=== PATIENT | female | born 1945 | race Caucasian/White ===

== ENCOUNTER 2024-07-31 14:35 | Outpatient (OUT) | payer SELFPAY | END 2024-07-31 14:36 | disposition home or self-care (01) | LOC: PST 14:35 | PROVIDERS: Visit Provider Ophthalmology | DX: Z01.818 Encounter for other preprocedural examination (principal); H25.811 Combined forms of age-related cataract, right eye ==

== ENCOUNTER 2024-08-02 07:50 | Day surgery (SDC) | payer MEDICARE, SELFPAY ==
--- NOTE | 2024-08-02 | OP_ITS ---
OPERATION DATE: 08/02/2024 SURGEON: Garrett Crane D.O. PREOPERATIVE DIAGNOSIS: Nuclear sclerotic cataract right eye. POSTOPERATIVE DIAGNOSIS: Nuclear sclerotic cataract right eye. PROCEDURE NAME: Cataract extraction with intraocular lens placement of the right eye. ANESTHESIA: Topical ESTIMATED BLOOD LOSS: Zero. COMPLICATIONS: None. PROCEDURE: The patient was brought to the Operating Room in supine position. After proper identification, the right eye was prepped and draped in a sterile ophthalmic fashion. A paracentesis created at the 11 o'clock position. Approximately 1 cc of unpreserved Xylocaine was injected into the anterior chamber followed by Amvisc Plus. Using a 2.6 mm Keratome blade, a clear corneal incision was created at the 9 o'clock limbus. A cystotome was then used to begin a curvilinear capsulorrhexis that was continued for 360 degrees with the Utrata forceps. BSS on a 26 gauge cannula was injected beneath the anterior capsule to hydrodissect as well as hydrodelineate the lens. After ensuring mobility, phacoemulsification was performed in a [id number]-type fashion. After all nuclear material had been removed from the eye, IA was introduced and all residual cortical material was cleaned up. Additional Amvisc Plus was injected into the posterior bag and a lens model MX60, 18.0 diopters was injected and dialed into position. After ensuring centration, IA was reintroduced into the anterior chamber and all residual Amvisc Plus was removed from the eye. BSS on a 30 gauge cannula was injected into the stroma of both the clear corneal incision as well as paracentesis to hydrate the wounds. Additional BSS was injected into the anterior chamber to pressurize the eye at approximately 20 to 22 mmHg by finger tension. 0.1 cc of antibiotic was injected into the anterior chamber and Weck-Silvia sponges were used to check the wounds to be watertight. One drop of apraclonidine and one drop of prednisolone acetate placed into the eye and a shield was placed over top. The patient was sent to the postoperative area in satisfactory condition to follow up the following day for postoperative care. EDWINA
--- NOTE | 2024-08-02 | HP_ITS ---
PREOPERATIVE HISTORY AND PHYSICAL ? Date:? 07/31/2024 ? HISTORY:? The patient is a 78-year-old white female with complaints of declining vision out of her right eye.? She believes that this has been rather rapid over the last 12-18 months.? This has been affecting both her distance as well as her near.? Tasks such as reading the newspaper or working on the computer have become more challenging.? Most significantly, she has noted her night time driving has become difficult with headlights creating glare and halos.? ? PAST OCULAR HISTORY:? 1.? 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 2.? Dry eye. PAST MEDICAL HISTORY: Hypothyroidism, hypertension, hiatal hernia, hepatic steatosis, breast cancer, appendicitis status post appendectomy. ? SOCIAL HISTORY:? Denies tobacco, alcohol or recreational drug abuse. ? SYSTEMIC MEDICATIONS:? Include omeprazole, losartan, hydrochlorothiazide, amlodipine, levothyroxine and simvastatin. ? ALLERGIES TO MEDICATIONS:? Codeine and penicillin. ? REVIEW OF SYSTEMS:? No pertinent positives. ? PHYSICAL EXAM: ? GENERAL:? In general, she is awake, alert and oriented x3, well developed, well nourished, in no acute distress.? ? HEART:? Regular rate and rhythm. ? LUNGS:? Clear bilaterally. ? ABDOMEN:? Soft, non-tender, non-distended. ? EXTREMITIES:? No pitting edema. ? OPHTHALMIC EXAM:? Revealed a visual acuity of 20/70 in the right and 20/60 in the left.? Pupils motility, muscle balance and confrontational visual borges within normal limits bilaterally.? Pressures are measured at 16 bilaterally.?? Slit lamp exam revealed blepharitis with a severe decrease in tear film bilaterally.? Conjunctiva, cornea, anterior chamber and iris were within normal limits bilaterally.? Lens status demonstrated 2+ nuclear sclerosis with 3+ posterior subcapsular cataracts bilaterally.? ? FUNDUS EXAM:? Revealed good view with good dilation bilaterally.? Vessels, periphery and vitreous were within normal limits bilaterally.? The macula demonstrated an epiretinal membrane with pigment clumping in the right eye, and pigment clumping in the left eye with subretinal fluid.? ? ASSESSMENT AND PLAN:? Visually significant cataract, right eye.? After the risks, benefits, and alternatives as well as expectations were delivered to the patient, she elected to go forward with cataract removal.? She understands those risks to include but not limited to infection, bleeding, loss of vision or loss of the eye itself.? Secondly, she understands that postoperatively she is likely to require spectacle correction for her best visual acuity.? Finally, a complete ophthalmic exam was performed and she does carry the diagnosis of macular degeneration and this will affect her vision, perhaps shelter; however, it is felt that the cataract is the predominant source of her visual decline at this time.? After understanding all risks as well as expectations, she elected to go forward with the procedure as listed above and will be doing so in the near future. EDWINA
--- OUTSIDE RECORDS SUMMARY | 2024-08-02 07:55 | XMS_ITS | CCD ---
Author Organization [facility] Care Team Providers Care Wood Last Maker Name Role Phone GRACY TREVIZO Unavailable Unavailable Ivanauskas, Saulius Unavailable Unavailable Ivanauskas, Saulius Unavailable Unavailable Maria Elena Watson Unavailable UnavailEbonie Bowen Primary Care Physician [phone] NON STAFF Primary Care Provider UnavailGALEN Vivas-RAMIRO Walker Emergency Provider Silvana Sharma Attending Unavailable Silvana Sharma Admitting Unavailable NON STAFF Primary Care Unavailable Esteban Healy Attending Unavailable Ebonie Cash Attending Unavailable Ebonie Cash Attending Unavailable Salinas Villalobos Attending Unavailable ROMY HENRY Attending Unavailable SARA SAL Attending Unavailable SARA SAL Attending Unavailable SARA SAL Attending Unavailable SARA SAL Attending Unavailable SARA SAL Attending Unavailable Allergies Allergy Classification Reported Allergen(s) Allergy Type Date of Onset Reaction(s) Facility (2 sources) Penicillins; Translations: [penicillins] Propensity to adverse reactions to drug (disorder) 4 [facility] Rep[facility] (10 sources) Codeine; Translations: [codeine] Drug Allergy 7 rash [facility] (10 sources) Penicillin; Translations: [penicillin] Drug Allergy [facility] (5 sources) Nalbuphine; Translations: [nalbuphine] Drug Allergy Intolerance, function (observable entity) [facility] Medications Current Medications Medication Drug Class(es) Dates Sig (Normalized) Sig (Original) acetaminophen 325 mg / oxyCODONE hydrochloride 5 mg oral tablet (2 sources) Opioid Agonist Start: 03-06-2023 Percocet 5 mg-325 mg oral tablet 1 tab(s), Oral, q6hr as needed for pain, 12 tab(s), Refill(s) 0, [facility], 164, cm, 03/06/23 14:09:00 EDT, Height/Length Dosing, 76.5, kg, 03/06/23 14:09:00 EDT, Weight Dosing Start Date: 03/06/23 Status: Ordered amLODIPine 5 mg oral tablet (10 sources) Dihydropyridine Calcium Channel Judson Start: 01-14-2023 take 5 mg by mouth once daily Amlodipine Active 5 MG PO Daily March 08, 2024 12:00am Start: 12-21-2021 take 1 tablet by sophia th once daily amLODIPine 5 mg Tab 5 mg = 1 tab(s), Oral, Daily, # 90 tab(s), Refills(s) 3, Pharmacy: [facility], 165, cm, 12/21/21 15:49:00 EST, Height/Length Dosing, 77.7, kg, 12/21/21 15:49:00 EST, Weight Dosing Start Date: 12/21/21 Status: Ordered aspirin 81 mg delayed release oral tablet (5 sources) Platelet Aggregation Inhibitor, Nonsteroidal Anti-inflammatory Drug Start: 12-02-2016 take 1 tablet by mouth once daily aspirin 81 mg Oral EC Tab 81 mg = 1 tab(s), Oral, Daily, # 30 tab(s), Refills(s) 0, Pharmacy: [facility] Start Date: 12/02/16 Status: Ordered benzocaine 6 mg / menthol 10 mg oral lozenge (1 source) Standardized Chemical Allergen Start: 07-19-2022 Chloraseptic 6 mg-10 mg Lozenge 1 lozenge(s), Oral, q2hr for sore throat, 18 EA, Refill(s) 0, [facility], 165, cm, 07/19/22 13:46:00 EDT, Height/Length Dosing, 74.1, kg, 07/19/22 13:46:00 EDT, Weight Dosing Start Date: 07/19/22 Status: Ordered benzonatate 100 mg oral capsule (1 source) Non-narcotic Antitussive Start: 07-19-2022 End: 07-22-2022 take 1 capsule by mouth three times daily as needed for cough benzonatate 100 mg Cap 100 mg = 1 cap(s), Oral, TID, PRN Cough, X 3 day(s), # 9 cap(s), Refills(s) 0, Pharmacy: [facility], 165, cm, 07/19/22 13:46:00 EDT, Height/Length Dosing, 74.1, kg, 07/19/22 13:46:00 EDT, Weight Dosing Start Date: 07/19/22 Stop Date: 07/22/22 Status: Ordered cephalexin 500 mg oral capsule (2 sources) Cephalosporin Antibacterial Start: 03-01-2024 End: 03-06-2024 take 1 capsule by mouth every six hours Keflex 500 mg Cap 500 mg = 1 cap(s), Oral, q6hr, X 5 day(s), # 20 cap(s), Refills(s) 0, Pharmacy: [facility], 165.1, cm, 03/01/24 7:56:00 EDT, Height/Length Dosing, 77.1, kg, 03/01/24 7:56:00 EDT, Weight Dosing Start Date: 03/01/24 Stop Date: 03/06/24 Status: Ordered Chloraseptic 6 mg-10 mg Lozenge (4 sources) Start: 07-19-2022 Chloraseptic 6 mg-10 mg Lozenge 1 lozenge(s), Oral, q2hr for sore throat, 18 EA, Refill(s) 0, [facility], 165, cm, 07/19/22 13:46:00 EDT, Height/Length Dosing, 74.1, kg, 07/19/22 13:46:00 EDT, Weight Dosing Start Date: 07/19/22 Status: Ordered cyclobenzaprine hydrochloride 10 mg oral tablet (3 sources) Muscle Relaxant Start: 03-23-2023 take 1 tablet by mouth three times daily as needed for muscle spasms cyclobenzaprine 10 mg Tab 10 mg = 1 tab(s), Oral, TID, PRN for spasm, # 30 tab(s), Refills(s) 0, Pharmacy: [facility], 164, cm, 03/23/23 10:01:00 EDT, Height/Length Dosing, 75.9, kg, 03/23/23 10:01:00 EDT, Weight Dosing Start Date: 03/23/23 Status: Ordered 12 hr dextromethorphan polistirex 6 mg/ml extended release suspension (5 sources) Uncompetitive E-smulaw-W-aspartate Receptor Antagonist, Sigma-1 Agonist Start: 07-19-2022 take 30 mg by mouth every twelve hours as needed for cough Delsym 30 mg/5 mL oral suspension, extended release 30 mg = 5 mL, Oral, q12hr, PRN for cough, # 50 mL, Refills(s) 0, Pharmacy: [facility], 165, cm, 07/19/22 13:46:00 EDT, Height/Length Dosing, 74.1, kg, 07/19/22 13:46:00 EDT, Weight Dosing Start Date: 07/19/22 Status: Ordered Diclofenac (5 sources) Nonsteroidal Anti-inflammatory Drug Start: 07-19-2022 diclofenac Top 1% gel 1 vikki, Topical, QID for pain, 100 gram, Refill(s) 0, [facility], 165, cm, 07/19/22 13:46:00 EDT, Height/Length Dosing, 74.1, kg, 07/19/22 13:46:00 EDT, Weight Dosing Start Date: 07/19/22 Status: Ordered Start: 07-19-2022 diclofenac Top 1% gel 1 vikki, Topical, QID for pain, 100 gram, Refill(s) 0, [facility], 165, cm, 07/19/22 13:46:00 EDT, Height/Length Dosing, 74.1, kg, 07/19/22 13:46:00 EDT, Weight Dosing Start Date: 07/19/22 Status: Ordered gabapentin 100 mg oral capsule (4 sources) Anti-epileptic Agent Start: 03-14-2023 take 1 capsule by mouth three times daily gabapentin 100 mg Cap 100 mg = 1 cap(s), Oral, TID, # 90 cap(s), Refills(s) 0, Pharmacy: [facility], 164, cm, 03/12/23 13:34:00 EDT, Height/Length Dosing, 76.5, kg, 03/12/23 13:34:00 EDT, Weight Dosing Start Date: 03/14/23 Status: Ordered guaiFENesin 400 mg oral tablet (6 sources) Start: 07-19-2022 take 1 tablet by mouth every four hours as needed for congestion guaifenesin 400 mg oral tablet 400 mg = 1 tab(s), Oral, q4hr, PRN for congestion, # 30 tab(s), Refills(s) 0, Pharmacy: [facility], 165, cm, 07/19/22 13:46:00 EDT, Height/Length Dosing, 74.1, kg, 07/19/22 13:46:00 EDT, Weight Dosing Start Date: 07/19/22 Status: Ordered hydroCHLOROthiazide 25 mg / losartan potassium 100 mg oral tablet (10 sources) Thiazide Diuretic, Angiotensin 2 Receptor Judson Start: 01-14-2023 take 1 tablet by mouth once daily Losartan-Hydroch lorothiazide Active 1 TAB PO Daily March 08, 2024 12:00am Start: 12-21-2021 hydrochlorothi azide-losartan 25 mg-100 mg Tab 1 tab(s), Oral, Daily, 90 tab(s), Refill(s) 3, [facility], 165, cm, 12/21/21 15:49:00 EST, Height/Length Dosing, 77.7, kg, 12/21/21 15:49:00 EST, Weight Dosing Start Date: 12/21/21 Status: Ordered levothyroxine sodium 0.05 mg oral tablet (10 sources) l-Thyroxine Start: 03-08-2024 take 50 ug by mouth once daily Levothyroxine Active 50 MCG PO Daily March 08, 2024 12:00am Start: 01-23-2024 take 1 tablet by sophia th once daily levothyroxine 50 mcg (0.05 mg) Tab 50 microgram = 1 tab(s), Oral, Daily, # 90 tab(s), Refills(s) 3, Pharmacy: [facility], 164, cm, 03/23/23 10:01:00 EDT, Height/Length Dosing, 75.9, kg, 03/23/23 10:01:00 EDT, Weight Dosing Start Date: 01/23/24 Status: Ordered Start: 01-14-2023 take 1 tablet by sophia once daily levothyroxine 50 mcg (0.05 mg) Tab 50 microgram = 1 tab(s), Oral, Daily, # 90 tab(s), Refills(s) 3, Pharmacy: [facility], 165, cm, 01/14/23 11:24:00 EDT, Height/Length Dosing, 80.1, kg, 01/14/23 11:24:00 EDT, Weight Dosing Start Date: 01/14/23 Status: Ordered Start: 12-21-2021 take 1 tablet by sophia once daily levothyroxine 50 mcg (0.05 mg) Tab 50 microgram = 1 tab(s), Oral, Daily, # 90 tab(s), Refills(s) 3, Pharmacy: [facility], 165, cm, 12/21/21 15:49:00 EST, Height/Length Dosing, 77.7, kg, 12/21/21 15:49:00 EST, Weight Dosing Start Date: 12/21/21 Status: Ordered naproxen 500 mg oral tablet (2 sources) Nonsteroidal Anti-inflammatory Drug Start: 03-06-2023 take 1 tablet by mouth twice daily Naprosyn 500 mg Tab 500 mg = 1 tab(s), Oral, BID, Do not take it with any other nonsteroidal anti-inflammatory medications gbrz-has-dvzakxi, # 15 tab(s), Refills(s) 0, Pharmacy: [facility], 164, cm, 03/06/23 14:09:00 EDT, Height/Length Dosing, 76.5, kg, 0... Start Date: 03/06/23 Status: Ordered omeprazole 40 mg delayed release oral capsule (10 sources) Proton Pump Inhibitor Start: 01-14-2023 take 40 mg by mouth once daily Omeprazole Active 40 MG PO Daily March 08, 2024 12:00am Start: 12-21-2021 take 1 capsule by [facility] once daily omeprazole 40 mg Cap-DR 40 mg = 1 cap(s), Oral, Daily, # 90 cap(s), Refills(s) 3, Pharmacy: [facility], 165, cm, 12/21/21 15:49:00 EST, Height/Length Dosing, 77.7, kg, 12/21/21 15:49:00 EST, Weight Dosing Start Date: 12/21/21 Status: Ordered ondansetron 4 mg disintegrating oral tablet (2 sources) Serotonin-3 Receptor Antagonist Start: 03-08-2024 take 4 mg by mouth every eight hours Ondansetron Active 4 MG PO Q8H March 08, 2024 12:00am Start: 03-03-2024 End: 03-06-2024 take 1 tablet by mouth every six hours ondansetron 4 mg Dis Tab 4 mg = 1 tab(s), Oral, q6hr, X 3 day(s), # 10 tab(s), Refills(s) 0, Pharmacy: [facility], 165.1, cm, 03/03/24 14:10:00 EDT, Height/Length Dosing, 79.8, kg, 03/03/24 14:10:00 EDT, Weight Dosing Start Date: 03/03/24 Stop Date: 03/06/24 Status: Ordered oxyCODONE hydrochloride 5 mg oral tablet (2 sources) Opioid Agonist Start: 03-08-2024 take 5 mg by mouth every six hours Oxycodone Active 5 MG PO Every 6 hours 12 3 March 08, 2024 Start: 03-03-2024 End: 03-06-2024 take 1 tablet by mouth every six hours oxyCODONE 5 mg Tab 5 mg = 1 tab(s), Oral, q6hr, X 3 day(s), # 10 tab(s), Refills(s) 0, Pharmacy: [facility], 165.1, cm, 03/03/24 14:10:00 EDT, Height/Length Dosing, 79.8, kg, 03/03/24 14:10:00 EDT, Weight Dosing Start Date: 03/03/24 Stop Date: 03/06/24 Status: Ordered simvastatin 40 mg oral tablet (10 sources) HMG-CoA Reductase Inhibitor Start: 01-14-2023 take 40 mg by mouth once daily Simvastatin Active 40 MG PO Daily March 08, 2024 12:00am Start: 12-21-2021 take 1 tablet by sophia th once daily at bedtime simvastatin 40 mg Tab 40 mg = 1 tab(s), Oral, Once a day (at bedtime), # 90 tab(s), Refills(s) 3, Pharmacy: [facility], 165, cm, 12/21/21 15:49:00 EST, Height/Length Dosing, 77.7, kg, 12/21/21 15:49:00 EST, Weight Dosing Start Date: 12/21/21 Status: Ordered Zofran ODT 4 mg Tab-Dis (6 sources) Start: 02-04-2023 take 1 tablet by mouth every six hours as needed for nausea Zofran ODT 4 mg Tab-Dis 4 mg = 1 tab(s), Oral, q6hr, PRN Nausea/Vomiting, # 12 tab(s), Refills(s) 0, Pharmacy: [facility], 164, cm, 02/04/23 5:46:00 EDT, Height/Length Dosing, 76.5, kg, 02/04/23 5:46:00 EDT, Weight Dosing Start Date: 02/04/23 Status: Ordered Problems Problem Classification Problem Date Documented Da te Episodic/Chronic Abdominal hernia (2 sources) Hiatal hernia; Translations: [Diaphragmatic hernia without obstruction or gangrene] Onset: 4 03-08-2024 Episodic Abdominal pain (6 sources) Right upper quadrant pain; Translations: [Right upper quadrant pain] Onset: 3 Episodic Cancer of breast (9 sources) Malignant tumor of breast 12-03-2019 Chronic Cancer of breast (9 sources) History of malignant neoplasm of breast 07-20-2021 Episodic Conditions associated with dizziness or vertigo (9 sources) Vertigo 12-29-2020 Episodic Coronary atherosclerosis and other heart disease (1 source) Coronary atherosclerosis and other heart disease Onset: 7 Diabetes mellitus with complications (5 sources) Complication due to diabetes mellitus; Translations: [Type 2 diabetes mellitus with other specified complication] Onset: 3 Chronic Diabetes mellitus without complication (18 sources) Diabetes mellitus; Translations: [Type 2 diabetes mellitus] 01-05-2021 Chronic Comment on above: Added per outpatient CDI policy. Diabetes mellitus without complication (9 sources) Impaired fasting glycemia 01-05-2021 Episodic Disorders of lipid metabolism (19 sources) Hypercholesterolemia; Translations: [Hyperlipidemia] Onset: 3 12-16-2014 Chronic Esophageal disorders (10 sources) Gastroesophageal reflux disease; Translations: [Gastroesophageal reflux disease without esophagitis] Onset: 3 12-03-2019 Chronic Essential hypertension (20 sources) Hypertensive disorder; Translations: [Essential hypertension] Onset: 3 12-16-2014 Chronic Essential hypertension (1 source) Essential hypertension Onset: 7 Fluid and electrolyte disorders (1 source) Hypokalemia; Translations: [Hypokalemia] Onset: 3 Episodic Gastrointestinal hemorrhage (1 source) Gastrointestinal hemorrhage; Translations: [Gastrointestinal hemorrhage, unspecified] Onset: 4 Episodic Genitourinary symptoms and ill-defined conditions (1 source) Blood in urine; Translations: [Hematuria, unspecified] Onset: 4 Episodic Headache, including migraine (1 source) Headache, including migraine Onset: 7 Malaise and fatigue (1 source) Malaise; Translations: [Other malaise] Onset: 3 Episodic Nonspecific chest pain (3 sources) Chest pain; Translations: [Other chest pain] Onset: 2 Episodic Osteoporosis (9 sources) Primary osteoporosis; Translations: [Age-related osteoporosis without current pathological fracture] Onset: 3 Chronic Other aftercare (1 source) Long-term current use of drug therapy; Translations: [Other oysterman (current) drug therapy] Onset: 3 Episodic Other connective tissue disease (1 source) Symptom: chest wall 07-19-2022 Episodic Other liver diseases (1 source) Steatosis of liver; Translations: [Fatty (change of) liver, not elsewhere classified] 03-08-2024 Chronic Other liver diseases (2 sources) Enzyme level - finding; Translations: [Abnormal levels of other serum enzymes] Onset: 3 Episodic Other lower respiratory disease (2 sources) Cough; Translations: [Cough, unspecified] Onset: 2 Episodic Other nervous system disorders (1 source) Walking disability; Translations: [Difficulty in walking, not elsewhere classified] Onset: 3 Chronic Other nutritional; endocrine; and metabolic disorders (4 sources) Overweight in adulthood with body mass index of 25 or more but less than 30; Translations: [Body mass index (BMI) 27.0-27.9, adult] Onset: 2 Episodic Other nutritional; endocrine; and metabolic disorders (7 sources) Body mass index 25-29 - overweight 01-05-2021 Episodic Other nutritional; endocrine; and metabolic disorders (11 sources) Overweight; Translations: [Overweight] Onset: 3 12-29-2020 Episodic Other screening for suspected conditions (not mental disorders or infectious disease) (10 sources) Mammography abnormal; Translations: [Encounter for screening mammogram for malignant neoplasm of breast] Onset: 3 07-20-2021 Episodic Other upper respiratory disease (1 source) Disorder of the nose; Translations: [Other specified disorders of nose and nasal sinuses] Onset: 2 Episodic Other upper respiratory disease (2 sources) Nasal congestion; Translations: [Nasal congestion] Onset: 2 Episodic Other upper respiratory infections (2 sources) Acute pharyngitis; Translations: [Acute pharyngitis, unspecified] Onset: 2 Episodic Peripheral and visceral atherosclerosis (2 sources) Atherosclerosis of aorta; Translations: [Atherosclerosis of aorta] Onset: 4 Chronic Comment on above: added per 03/06/2024 query response. Residual codes; unclassified (3 sources) Patient encounter status; Translations: [Other specified health status] Onset: 2 Episodic Residual codes; unclassified (10 sources) Insomnia; Translations: [Insomnia, unspecified] Onset: 3 12-29-2020 Episodic Spondylosis; intervertebral disc disorders; other back problems (12 sources) Low back pain; Translations: [Low back pain, unspecified] Onset: 3 Episodic Thyroid disorders (11 sources) Hypothyroidism; Translations: [Hypothyroidism, unspecified] Onset: 3 12-03-2019 Chronic Thyroid disorders (9 sources) Disorder of thyroid gland 12-16-2014 Episodic Unclassified (1 source) Cervicalgia / M54.2(ICD-10) Onset: 7 Unclassified (1 source) Dorsalgia, unspecified / M54.9(ICD-10) Onset: 7 Unclassified (1 source) Allergy status to penicillin / Z88.0(ICD-10) Onset: 7 Unclassified (1 source) Striking against other stationary object, initial encounter / W22.09XA(ICD-10) Onset: 7 Unclassified (1 source) Other fall from one level to another, initial encounter / W17.89XA(ICD-10) Onset: 7 Unclassified (1 source) Unspecified injury of head, initial encounter / S09.90XA(ICD-10) Onset: 7 Unclassified (9 sources) Influenza vaccination declined 12-29-2020 Unclassified (9 sources) Non-smoker 01-05-2021 Unclassified (9 sources) Patient encounter status 12-21-2021 Urinary tract infections (1 source) Urinary tract infectious disease; Translations: [Urinary tract infection, site not specified] Onset: 4 Episodic Results Test Name Value Interpretation Reference Range Facility Consultation Noteon 04-18-20 Consultation Note [id number] FF Normal [facility] Family Medicine Office/Clini c Noteon 03-13-2024 Family Medicine Office/Clinic Note Chief Complaint Follow up HPI Staff Pt here for chronic follow up. Concerns: Has been in hospital 2x has pain in side, Lt shoulder pain, nausea/vomiting, Diarrhea-bloody Refills: all HTN BP range:Not Checking Meds:Amlodipine 5mg, HCTZ-Losartan 25mg-100mg Compliant, no side effects Diet:No Exercise:No No chest pain, palpitations, sob, headache, peripheral edema, lightheadedness. No hypotensive episodes Patient is here for follow up on Thyroid Disease. Do you have any of the following symptoms? Change in energy level? no Weight change? no Heat/cold intolerance? no Hair/skin/nail changes? no Change in bowels? no Last TSH: No qualifying data available. Patient is here for follow up on hyperlipidemia: Do you have side effects from the medication? no Refill needed?: _ Yearly Lipid labs: Due Health Maintenance: Colonoscopy:12/18/14 Dexa:DUE Mammo:DUE Last Labs:03/12/23 History of Present Illness The patient is a 78-year-old female presenting with multiple symptoms, including intermittent left shoulder pain, nausea, vomiting, and bloody diarrhea. [facility], with the first visit on 03/01/2024 presenting with similar symptoms, predominantly with right-sided flank pain and hematuria. A UTI was diagnosed, and she was prescribed a 5-day course of Keflex. A CT scan of the abdomen and pelvis revealed no acute intra-abdominal process or significant changes from 03/12/2024. A CT scan of the abdomen and pelvis showed chronic pwhq-dn-zvglkuje T11 compression fracture and degenerative changes predominantly in the lower lumbar region, along with a small fat-containing inguinal hernia. She was discharged home with a Keflex regimen. She returned to the ED again on 03/03/2024 with persistent right-sided abdominal pain despite the Keflex treatment. Despite this, she reports no improvement in her symptoms. Her medical history includes an appendectomy. Mild elevation in her LFTs were observed in previous labs. She was advised to continue with omeprazole 40 mg and a referral to a GI specialist for additional testing. She reported feeling better after morphine and Zofran and was discharged in stable condition with a prescription for oxycodone and Zofran. Today, she is presenting with bloody diarrhea, nausea, vomiting, and left-sided pain. She has a medical history of diabetes. Her urine culture from 03/01/2024 was negative. The patient has been experiencing symptoms since last Tuesday, with no recent travel, new activities, or exposure to sick contacts. Her most severe pain is on her right side, which radiates into her back, which she attributes to severe vomiting. The vomiting commenced last , and she experienced loose, bright red diarrhea with blood 3 to 4 times a day last . Her food intake has been significantly reduced, and she is unable to drink water due to nausea and has been vomiting all morning for the past 2 days. She vomited approximately 5 times this morning. She was not prescribed Zofran and was only given pain medication. She was informed that a HIDA scan could not be performed. She continues to take omeprazole for acid reflux. Her abdominal pain intensifies upon palpation and movement, making it difficult for her to sit up. She can only consume a few bites of food before feeling as though her stomach is filling up. Her bowel movements are less frequent due to reduced food intake. She discontinued ibuprofen and NSAIDs. She is able to drive and does not require a wheelchair to transport her car. She noticed hematuria on , but has not had any since. The patient reports intermittent left shoulder pain, which she suspects may be due to a pulled muscle. She has been caring for her mother who in 09/2023 for a few months last year, which involved lifting. She is also preparing for a house sale and is unsure if she injured her shoulder. Laboratory Studies Last glucose on 03/03/2024 was 253. Last A1c was 6.9 on 12/22/2022. Urine culture on 03/01/[address] abdomen and pelvis showed no acute intra-abdominal process and no significant change from 03/12/2024. It also showed chronic gynv-fm-frughrpw T11 compression fracture and degenerative changes predominantly in the lower lumbar region and a small fat-containing inguinal hernia. Repeat CT abdomen was done on 03/03/2024 which showed no acute intra-abdominal findings or any significant changes from 2 days prior. Review of Systems PHQ Score Initial Depression Screen Score: 0 SCORE Negative except as above Physical Exam Vitals & Measurements HR: 87(Peripheral) BP: 130/82 SpO2: 97% HT: 65 in HT: 165.1 cm WT: 75.0 kg WT: 165 lb BMI: 27.51 Gen: No acute distress, patient wincing in pain during office visit grabbing her RUQ Cardio: RRR, no murmur/rubs/gallops Resp: CTAB, no wheezing/rales/rhonchi Abd: Soft, nondistended, active bowel sounds, no organomegaly. Tender RUQ and LUQ. No bruising or other skin ch (more content not included)... Normal [facility] Comment on above: Result Comment: Elec tronically Signed By: Ebonie Cash MD\.br\Date and Time Signed: 03/13/24 09:53 EDT Alanine aminotransferase [En zymatic activity/volume] in Serum or PlasmaOrdered By: Silvana Sharma on 03-08-2024 ALT [Catalytic activity/Vol] 71 U/L 7-52 [facility] Albumin [Mass/volume] in Ser um or Plasma by Bromocresol green (BCG) dye binding methoOrdered By: Silvana Bullimore on 03-08-2024 Albumin BCG dye [Mass/Vol] 4.7 g/dL 3.5-5.7 [facility] Alkaline phosphatase [Enzyma tic activity/volume] in Serum or PlasmaOrdered By: Silvana Bullimore on 03-08-2024 ALP [Catalytic activity/Vol] 160 U/L 34-104 [facility] Aspartate aminotransferase [ Enzymatic activity/volume] in Serum or PlasmaOrdered By: Silvana Bullimore on 03-08-2024 AST [Catalytic activity/Vol] 44 U/L 13-39 [facility] Basic Metabolic Panelon Anion gap [Moles/Vol] 13.0 mmol/L Normal 6.0-15.0 Th e [facility] Comment on above: Performed By: #### C BC, LIPASE, BMP, HEPATIC #### [facility] [address] Calcium [Mass/Vol] 9.9 mg/dL Normal 8.6-10.3 [facility] Comment on above: Performed By: #### C BC, LIPASE, BMP, HEPATIC #### [facility] [address] [place] [address] [place] Chloride [Moles/Vol] 100 mmol/L Normal 98-107 [facility] Comment on above: Performed By: #### C BC, LIPASE, BMP, HEPATIC #### [facility] [address] [place] [address] [place] CO2 [Moles/Vol] 29.6 mmol/L Normal 21.0-31.0 [facility] Comment on above: Performed By: #### C BC, LIPASE, BMP, HEPATIC #### [facility] [address] [place] [id number] [place] Creatinine [Mass/Vol] 1.05 mg/dL Normal 0.60-1.20 [facility] Comment on above: Performed By: #### C BC, LIPASE, BMP, HEPATIC #### [facility] [address] [id number] [place] Creatinine Clr Calc Pharmacy 45.43 Normal [facility] Comment on above: Performed By: #### C BC, LIPASE, BMP, HEPATIC #### [address] GFR/1.73 sq M.predicted MDRD (S/P/Bld) [Vol rate/Area] 54.724 mL/min/{1.73_m2} Normal [facility] Comment on above: Performed By: #### C BC, LIPASE, BMP, HEPATIC #### [address] Glucose [Mass/Vol] 154 mg/dL High 70-100 [facility] Comment on above: Result Comment: [facility] Glucose Reference Range is dependent on time and content of last meal. Glucose of more than 200 mg/dL in a nonstressed, ambulatory subject supports the diagnosis of Diabetes Mellitus. ADA recommended reference range Performed By: #### C BC, LIPASE, BMP, HEPATIC #### [address] Potassium [Moles/Vol] 3.6 mmol/L Normal 3.5-5.1 [facility] Comment on above: Performed By: #### C BC, LIPASE, BMP, HEPATIC #### [address] Sodium [Moles/Vol] 139 mmol/L Normal 136-145 [facility] Comment on above: Performed By: #### C BC, LIPASE, BMP, HEPATIC #### [address] Urea nitrogen [Mass/Vol] 18 mg/dL Normal 7-25 [facility] Comment on above: Performed By: #### C BC, LIPASE, BMP, HEPATIC #### [address] Basophils Auto (Bld) [#/Vol] Ordered By: Silvana Sharma on 03-08-2024 Basophils (Bld) [#/Vol] 0.1 10*3/uL 0.0-0.2 [facility] Basophils/100 WBC Auto (Bld) Ordered By: Silvana Sharma on 03-08-2024 Basophils/100 WBC (Bld) 1.0 % . [facility] Bilirubin Test strip Ql (U)O rdered By: Silvana Sharma on 03-08-2024 Bilirubin Ql (U) Negative Negative [facility] Bilirubin.direct [Mass/volum e] in Serum or PlasmaOrdered By: Silvana Sharma on 03-08-2024 Bilirubin.direct [Mass/Vol] 0.10 mg/dL 0.03-0.18 [facility] Bilirubin.total [Mass/volume ] in Serum or PlasmaOrdered By: Silvana Sharma on 03-08-2024 Bilirubin [Mass/Vol] 0.5 mg/dL 0.3-1.0 [facility] CT abdomen pelvis w conon CT abdomen pelvis w con [facility] [place] [address] CT Scan Report Signed Patient: Key Reaves MR#: [id number] : 1945 Acct:[id number] Age/Sex: 78 / F ADM Date: 03/08/24 Loc: ER Room: Type: [facility] ER Attending Dr: Copies to: JUDD Carr Ordering Provider: JUDD Carr Date of Service: 03/08/24 CT/CT abdomen pelvis w con: RUQ abd pain CT Abdomen and Pelvis withcontrast TECHNIQUE: Axial imaging with 2-D reconstruction.90 cc of Isovue-300. The CT exam was performed using one or more the following dose reduction techniques: Automated exposure control, adjustment of the MA and/or Kv according to patient size, or use of the iterative reconstruction technique. COMPARISON: None History: RIGHT upper quadrant pain LIMITATIONS: None LOWER THORAX large hiatal hernia LIVER: Hepatic steatosis GALLBLADDER: No gallbladder abnormality identified. BILE DUCTS: No dilatation SPLEEN: Unremarkable PANCREAS: Unremarkable ADRENAL GLANDS: Unremarkable KIDNEYS:Unremarkable AORTA: No abdominal aortic aneurysm identified. RETROPERITONEUM: No significant retroperitoneal abnormalities identified. MESENTERY:Unremarkable SMALL BOWEL: The small bowel loops are nondistended. APPENDIX: The appendix is normal. COLON: Unremarkable URINARY BLADDER: Urinary bladder is unremarkable. REPRODUCTIVE SYSTEM: Retroverted uterus. The width of the central hypodense complex is 7.4 mm. No adnexal mass. PNEUMOPERITONEUM: None PERITONEAL FLUID:None BONY STRUCTURES: Degenerative change. ABDOMINAL WALL: Unremarkable CT/CT abdomen pelvis w con IMPRESSION: No acute findings for RIGHT upper quadrant pain. Hepatic steatosis. Concern for thickened endometrium. Elective follow-up assessment with pelvic ultrasound. Large hiatal hernia. Impression dictated by: Candelario Perez M.D.03/08/2024 7:35 PM Dictation Location: [place] [address] Transcribed By: [facility] 03/08/241934 Dictated By: Candelario Perez DO 03/08/241929 Signed By: 03/08/241934 Normal [facility] Calcium [Mass/volume] in Ser um or PlasmaOrdered By: Silvana Sharma on 03-08-2024 Calcium [Mass/Vol] 9.9 mg/dL 8.6-10.3 [facility] Carbon dioxide, total [Moles /volume] in Serum or PlasmaOrdered By: Silvana Sharma on 03-08-2024 CO2 [Moles/Vol] 29.6 mmol/L 21.0-31.0 [facility] Chloride [Moles/volume] in S gopal or PlasmaOrdered By: Silvana Sharma on 03-08-2024 Chloride [Moles/Vol] 100 mmol/L 98-107 [facility] Color Auto (U)Ordered By: Graciela Sharma on 03-08-2024 Color (U) Yellow Yellow [facility] Complete Blood Count Auto Di ffon 03-08-2024 Basophils (Bld) [#/Vol] 0.1 10*3/uL Normal 0.0-0.2 [facility] Comment on above: Result Comment: PERF ORMED BY: [place] [address] PATHOLOGIST [employer] MELY LUQUE M.D. Performed By: #### C BC, LIPASE, BMP, HEPATIC #### [address] Basophils/100 WBC (Bld) 1.0 % Normal . T sai [facility] Comment on above: Performed By: #### C BC, LIPASE, BMP, HEPATIC #### [address] Eosinophils (Bld) [#/Vol] 0.1 10*3/uL Normal 0.0-0.45 [facility] Comment on above: Performed By: #### C BC, LIPASE, BMP, HEPATIC #### [address] Eosinophils/100 WBC (Bld) 0.6 % Normal . [facility] Comment on above: Performed By: #### C BC, LIPASE, BMP, HEPATIC #### [address] Erythrocyte distribution width (RBC) [Ratio] 13.2 % Normal 11.9-15.3 [facility] Comment on above: Performed By: #### C BC, LIPASE, BMP, HEPATIC #### [address] Hematocrit (Bld) [Volume fraction] 44.0 % Normal 34.0-46.4 [facility] Comment on above: Performed By: #### C BC, LIPASE, BMP, HEPATIC #### [address] Hemoglobin (Bld) [Mass/Vol] 15.2 g/dL Normal 11.8-15.4 [facility] Comment on above: Performed By: #### C BC, LIPASE, BMP, HEPATIC #### [address] Lymphocytes (Bld) [#/Vol] 2.1 10*3/uL Normal 1.00-4.8 [facility] Comment on above: Performed By: #### C BC, LIPASE, BMP, HEPATIC #### [address] Lymphocytes/100 WBC (Bld) 17.3 % Normal . [facility] Comment on above: Performed By: #### C BC, LIPASE, BMP, HEPATIC #### [address] MCH (RBC) [Entitic mass] 32.8 pg Normal 24.7-34.3 [facility] Comment on above: Performed By: #### C BC, LIPASE, BMP, HEPATIC #### [address] MCV (RBC) [Entitic vol] 95.1 fL Normal 80-100 [facility] Comment on above: Performed By: #### C BC, LIPASE, BMP, HEPATIC #### [address] Mean Corpuscular HGB Conc 34.5 g/dL Normal 32.0-35.0 [facility] Comment on above: Performed By: #### C BC, LIPASE, BMP, HEPATIC #### [address] Monocytes (Bld) [#/Vol] 0.7 10*3/uL Normal 0.0-0.8 [facility] Comment on above: Performed By: #### C BC, LIPASE, BMP, HEPATIC #### [address] Monocytes/100 WBC (Bld) 17.65 % Normal 0.00-20.00 [facility] Comment on above: Performed By: #### C BC, LIPASE, BMP, HEPATIC #### [address] Monocytes/100 WBC (Bld) 5.7 % Normal . T [facility] Comment on above: Performed By: #### C BC, LIPASE, BMP, HEPATIC #### [address] Neutrophils (Bld) [#/Vol] 9.0 10*3/uL High 1.8-7.7 [facility] Comment on above: Performed By: #### C BC, LIPASE, BMP, HEPATIC #### [address] Neutrophils/100 WBC (Bld) 75.4 % Normal . [facility] Comment on above: Performed By: #### C BC, LIPASE, BMP, HEPATIC #### [address] NRBC% 0.0 /100{WBC} Normal 0-0.5 [facility] Comment on above: Performed By: #### C BC, LIPASE, BMP, HEPATIC #### [address] Platelet mean volume (Bld) [Entitic vol] 8.8 fL Normal 6.3-10.7 [facility] Comment on above: Performed By: #### C BC, LIPASE, BMP, HEPATIC #### [address] Platelets (Bld) [#/Vol] 289 10*3/uL Normal 150-450 [facility] Comment on above: Performed By: #### C BC, LIPASE, BMP, HEPATIC #### [address] RBC (Bld) [#/Vol] 4.63 10*6/uL Normal 3.60-5.00 [facility] Comment on above: Performed By: #### C BC, LIPASE, BMP, HEPATIC #### [address] WBC (Bld) [#/Vol] 11.9 10*3/uL High 3.8-11.6 [facility] Comment on above: Performed By: #### C BC, LIPASE, BMP, HEPATIC #### [address] Creatinine [Mass/volume] in Serum or PlasmaOrdered By: Silvana Sharma on 03-08-2024 Creatinine [Mass/Vol] 1.05 mg/dL 0.60-1.20 [facility] ECG 12 lead ECGon 03-08-2024 ECG 12 lead ECG [facility] Main [place] [address] [place] [address] Electrocardiograph Report Signed Patient: Key Reaves MR#: [id number] : 1945 Acct:[id number] Age/Sex: 78 / F ADM Date: 03/08/24 Loc: ER Room: Type: [facility] ER Attending Dr: Ordering Provider: JUDD Carr Date of Service: 03/08/2407/24/1501 ECG/ECG 12 lead ECG: Abdominal Pain Copies to: Test Reason : Blood Pressure : 145/065 mmHG Vent. Rate : 086 BPM Atrial Rate : 086 BPM P-R Int : 138 ms QRS Dur : 084 ms QT Int : 366 ms P-R-T Axes : 064 000 085 degrees QTc Int : 437 ms Normal sinus rhythm Anterior infarct , age undetermined Abnormal ECG No previous ECGs available Confirmed by ALDAIR REYNOLDS [facility] ([id number] on 03/11/2024 2:53:11 PM Referred By: Electronically Signed By:MEGAN QUINTEROS MD [facility] Transcribed By: MUS Signed By Ken Quinteros MD 03/11/24 1453 Normal [facility] Eosinophils Auto (Bld) [#/Vo l]Ordered By: Silvana Sharma on 03-08-2024 Eosinophils (Bld) [#/Vol] 0.1 10*3/uL 0.0-0.45 [facility] Eosinophils/100 WBC Auto (Bl d)Ordered By: Silvana Sharma on 03-08-2024 Eosinophils/100 WBC (Bld) 0.6 % . [facility] Erythrocyte distribution wid th Auto (RBC) [Ratio]Ordered By: Silvana Sharma on 03-08-2024 Erythrocyte distribution width (RBC) [Ratio] 13.2 % 11.9-15.3 [facility] Globulin Calc (S) [Mass/Vol] Ordered By: Silvana Sharma on 03-08-2024 Globulin (S) [Mass/Vol] 3.7 g/dL [facility] Glucose [Mass/volume] in Ser um or PlasmaOrdered By: Silvana Sharma on 03-08-2024 Glucose [Mass/Vol] 154 mg/dL 70-100 [facility] Comment on above: ADA recommended refe rence rangeRandom Glucose Reference Range is dependent on time and content of last meal. Glucose of more than 200 mg/dL in a nonstressed, ambulatory subject supports the diagnosis of Diabetes Mellitus. Hematocrit Auto (Bld) [Volum e fraction]Ordered By: Silvana Sharma on 03-08-2024 Hematocrit (Bld) [Volume fraction] 44.0 % 34.0-46.4 [facility] Hemoglobin [Mass/volume] in BloodOrdered By: Silvana Dominguezimore on 03-08-2024 Hemoglobin (Bld) [Mass/Vol] 15.2 g/dL 11.8-15.4 [facility] Hepatic Panelon 03-08-2024 Albumin [Mass/Vol] 4.7 g/dL Normal 3.5-5.7 [facility] Comment on above: Performed By: #### C BC, LIPASE, BMP, HEPATIC #### [facility] [address] Albumin/Globulin [Mass ratio] 1.3 {ratio} Normal [facility] Comment on above: Performed By: #### C BC, LIPASE, BMP, HEPATIC #### [facility] [address] [place] [address] [place] ALP [Catalytic activity/Vol] 160 U/L High 34-104 [facility] Comment on above: Performed By: #### C BC, LIPASE, BMP, HEPATIC #### [facility] [address] [place] [address] [place] ALT [Catalytic activity/Vol] 71 U/L High 7-52 [facility] Comment on above: Performed By: #### C BC, LIPASE, BMP, HEPATIC #### [facility] [address] [place] [address] [place] AST [Catalytic activity/Vol] 44 U/L High 13-39 [facility] Comment on above: Performed By: #### C BC, LIPASE, BMP, HEPATIC #### [facility] [address] [id number] [place] Bilirubin [Mass/Vol] 0.5 mg/dL Normal 0.3-1.0 [facility] Comment on above: Performed By: #### C BC, LIPASE, BMP, HEPATIC #### [facility] [address] [place] [address] [place] Bilirubin,Indirect 0.4 mg/dL Normal [facility] Comment on above: Performed By: #### C BC, LIPASE, BMP, HEPATIC #### [address] Bilirubin.indirect [Mass/Vol] 0.10 mg/dL Normal 0.03-0.18 [facility] Comment on above: Performed By: #### C BC, LIPASE, BMP, HEPATIC #### [address] Globulin (S) [Mass/Vol] 3.7 g/dL Normal T [facility] Comment on above: Performed By: #### C BC, LIPASE, BMP, HEPATIC #### [address] Protein [Mass/Vol] 8.4 g/dL Normal 6.4-8.9 [facility] Comment on above: Performed By: #### C BC, LIPASE, BMP, HEPATIC #### [address] Ketones Auto test strip (U) [Mass/Vol]Ordered By: Silvana Sharma on 03-08-2024 Ketones (U) [Mass/Vol] Negative Negative [facility] Leukocytes [#/volume] correc von for nucleated erythrocytes in Blood by Automated counOrdered By: Silvana Sharma on 03-08-2024 WBC corrected for nucl RBC Auto (Bld) [#/Vol] 11.9 10*3/uL 3.8-11.6 [facility] Lipaseon 03-08-2024 Lipase [Catalytic activity/Vol] 9.0 U/L Low 11.0-82.0 [facility] Comment on above: Result Comment: PERF ORMED BY: [place] [address] PATHOLOGIST [employer] MELY LUQUE M.D. Performed By: #### C BC, LIPASE, BMP, HEPATIC #### [address] Lipase [Enzymatic activity/v olume] in Serum or PlasmaOrdered By: Silvana Sharma on 03-08-2024 Lipase [Catalytic activity/Vol] 9.0 U/L 11.0-82.0 [facility] Lymphocytes Auto (Bld) [#/Vo l]Ordered By: Silvana Bullimore on 03-08-2024 Lymphocytes (Bld) [#/Vol] 2.1 10*3/uL 1.00-4.8 [facility] Lymphocytes/100 WBC Auto (Bl d)Ordered By: Silvana Bullimore on 03-08-2024 Lymphocytes/100 WBC (Bld) 17.3 % . [facility] MCH Auto (RBC) [Entitic mass ]Ordered By: Silvana Bullimore on 03-08-2024 MCH (RBC) [Entitic mass] 32.8 pg 24.7-34.3 [facility] MCHC Auto (RBC) [Mass/Vol]Or dered By: Silvana Bullimore on 03-08-2024 MCHC (RBC) [Mass/Vol] 34.5 g/dL 32.0-35.0 [facility] MCV Auto (RBC) [Entitic vol] Ordered By: Silvana Bullimore on 03-08-2024 MCV (RBC) [Entitic vol] 95.1 fL 80-100 [facility] Monocyte distribution width [Entitic volume] in Blood by AutomatedOrdered By: Silvana Bullimore on 03-08-2024 Monocyte distribution width Auto (Bld) [Entitic vol] 17.65 % 0.00-20.00 [facility] Monocytes Auto (Bld) [#/Vol] Ordered By: Silvana Bullimore on 03-08-2024 Monocytes (Bld) [#/Vol] 0.7 10*3/uL 0.0-0.8 [facility] Monocytes/100 WBC Auto (Bld) Ordered By: Silvana Bullimore on 03-08-2024 Monocytes/100 WBC (Bld) 5.7 % . [facility] Neutrophils Auto (Bld) [#/Vo l]Ordered By: Silvana Bullimore on 03-08-2024 Neutrophils (Bld) [#/Vol] 9.0 10*3/uL 1.8-7.7 [facility] Neutrophils/100 WBC Auto (Bl d)Ordered By: Silvana Badilloore on 03-08-2024 Neutrophils/100 WBC (Bld) 75.4 % . [facility] Nitrite Test strip Ql (U)Ord ered By: Silvana Sharma on 03-08-2024 Nitrite Ql (U) Negative Negative [facility] No Panel InformationOrdered By: Silvana Sharma on 03-08-2024 Estimated GFR (CKD-EPI) 54.724 mL/Min [facility] Creatinine Clearance (Chem 45.43 [facility] Nucleated erythrocytes [Pres ence] in Blood by Automated countOrdered By: Silvana Sharma on 03-08-2024 Nucleated RBC Auto Ql (Bld) 0.0 /100{WBC} 0-0.5 [facility] Platelet mean volume Auto (B ld) [Entitic vol]Ordered By: Silvana Badilloore on 03-08-2024 Platelet mean volume (Bld) [Entitic vol] 8.8 fL 6.3-10.7 [facility] Platelets Auto (Bld) [#/Vol] Ordered By: Silvana Dominguezimore on 03-08-2024 Platelets (Bld) [#/Vol] 289 10*3/uL 150-450 [facility] Potassium [Moles/volume] in Serum or PlasmaOrdered By: Silvana Dominguezimore on 03-08-2024 Potassium [Moles/Vol] 3.6 mmol/L 3.5-5.1 [facility] Protein Auto test strip (U) [Mass/Vol]Ordered By: Silvana Sharma on 03-08-2024 Protein (U) [Mass/Vol] Negative Negative [facility] Protein [Mass/volume] in Ser um or PlasmaOrdered By: Silvana Dominguezimore on 03-08-2024 Protein [Mass/Vol] 8.4 g/dL 6.4-8.9 [facility] RBC Auto (Bld) [#/Vol]Ordere d By: Silvana Bullimore on 03-08-2024 RBC (Bld) [#/Vol] 4.63 10*6/uL 3.60-5.00 [facility] Serum or plasma albumin/glob ulin mass ratioOrdered By: Silvanaginna Badilloore on 03-08-2024 Albumin/Globulin [Mass ratio] 1.3 {ratio} [facility] Serum or plasma anion gap de terminationOrdered By: Silvanaginna Dominguezore on 03-08-2024 Anion gap [Moles/Vol] 13.0 mmol/L 6.0-15.0 [facility] Serum or plasma non-glucuron idated bilirubin measurement (mass/volume)Ordered By: B[facility] Albertor [facility] on 03-08-2024 Bilirubin.indirect [Mass/Vol] 0.4 mg/dL [facility] Sodium [Moles/volume] in Ser um or PlasmaOrdered By: Silvanaginna Dominguezore on 03-08-2024 Sodium [Moles/Vol] 139 mmol/L 136-145 [facility] Specific gravity Auto test s trip (U) [Rel density]Ordered By: [facility] on 03-08-2024 Specific gravity (U) [Rel density] 1.005 1.001-1.030 [facility] Troponin I High Sensitivityo n 03-08-2024 Troponin I High Sensitivity 5.2 pg/mL Normal 0.0-15.0 [facility] Comment on above: Result Comment: PERF ORMED BY: [place] [address] PATHOLOGIST [employer] MELY LUQUE M.D. Performed By: #### H S TROP #### [address] Troponin I.cardiac [Mass/vol ume] in Serum or Plasma by Detection limit <= 0.01 ng/Ordered By: Silvanaginna Dominguezr [facility] on 03-08-2024 Troponin I.cardiac DL <= 0.01 ng/mL [Mass/Vol] 5.2 pg/mL 0.0-15.0 [facility] US gall bladderon 03-08-2024 US gall bladder [facility] [place] [address] Ultrasound Report Signed Patient: Key Reaves MR#: [id number] : 1945 Acct:[id number] Age/Sex: 78 / F ADM Date: 03/08/24 Loc: ER Room: Type: [facility] ER Attending Dr: Ordering Provider: JUDD Carr Date of Service: 03/08/24 US/US gall bladder: ABDOMINAL PAIN Copies to: JUDD Carr Gallbladder ultrasound HISTORY: RIGHT upper quadrant pain since Tuesday. Nausea vomiting diarrhea COMPARISON: None Negative ultrasound Rincon's sign reported. COMMON BILE DUCT: Not visualized LIVER CONTOUR: Normal. LIVER PARENCHYMA: Hepatic steatosis HEPATIC LESION: None INTRAHEPATIC BILIARY DUCTAL DILATATION No ductal dilatation identified. GALLSTONES: No shadowing gallstones. GALLBLADDER SLUDGE: No gallbladder sludge. GALLBLADDER WALL: Normal thickness PERICHOLECYSTIC FLUID: None Pancreas: Nonvisualization PORTAL VEIN: Normal blood flow. Liver size: Normal No RIGHT hydronephrosis identified. US/US gall bladder IMPRESSION: Limited exam. Hepatic steatosis. Nonvisualization of common bile duct. Unremarkable gallbladder. Impression dictated by: Candelario Perez M.D.03/08/2024 6:08 PM Dictation Location: [place] [address] Tech: Julia Ovalle Transcribed By: [facility] 03/08/241807 Dictated By: Candelario Perez DO 03/08/241805 Signed By: 03/08/241807 Normal [facility] Urea nitrogen [Mass/volume] in Serum or PlasmaOrdered By: Silvana Sharma on 03-08-2024 Urea nitrogen [Mass/Vol] 18 mg/dL 7-25 [facility] Urinalysison 03-08-2024 Appearance (U) Clear Normal Clear [facility] Comment on above: Order Comment: Name Collection Type:: Clean-Voided Midstream Performed By: #### U A #### [facility] [address] [place] [address] [place] Bilirubin,Urine Negative Normal Negative [facility] Comment on above: Order Comment: Name Collection Type:: Clean-Voided Midstream Performed By: #### U A #### [facility] [address] [place] [id number] [place] Color (U) Yellow Normal Yellow [facility] Comment on above: Order Comment: Name Collection Type:: Clean-Voided Midstream Performed By: #### U A #### [address] Glucose Ql (U) Normal Normal Normal [facility] Comment on above: Order Comment: Name Collection Type:: Clean-Voided Midstream Performed By: #### U A #### [address] Ketones Ql (U) Negative Normal Negative [facility] Comment on above: Order Comment: Name Collection Type:: Clean-Voided Midstream Performed By: #### U A #### [address] Leukocyte esterase Test strip Ql (U) Negative Normal Negative [facility] Comment on above: Order Comment: Name Collection Type:: Clean-Voided Midstream Performed By: #### U A #### [place] [address] [place] Nitrite,Urine Negative Normal Negative [facility] Comment on above: Order Comment: Name Collection Type:: Clean-Voided Midstream Performed By: #### U A #### [place] [address] [place] Occult Blood,Urine Negative Normal Negative [facility] Comment on above: Order Comment: Name Collection Type:: Clean-Voided Midstream Result Comment: PERF ORMED BY: [place] [address] PATHOLOGIST [employer] MELY LUQUE M.D. Performed By: #### U A #### [place] [address] [place] pH (U) 6.5 [pH] Normal 5.0-9.0 [facility] Comment on above: Order Comment: Name Collection Type:: Clean-Voided Midstream Performed By: #### U A #### [place] [address] [place] Protein,Urine Negative Normal Negative [facility] Comment on above: Order Comment: Name Collection Type:: Clean-Voided Midstream Performed By: #### U A #### [facility] [address] Specificy [place],Urine 1.005 Normal 1.001-1.030 [facility] Comment on above: Order Comment: Name Collection Type:: Clean-Voided Midstream Performed By: #### U A #### [facility] [address] Urobilinogen,Urine Normal Normal Normal [facility] Comment on above: Order Comment: Name Collection Type:: Clean-Voided Midstream Performed By: #### U A #### [facility] [address] Urine clarity by refractomet ry automatedOrdered By: Silvana Sharma on 03-08-2024 Clarity Refractometry automated (U) Clear Clear [facility] Urine glucose measurement by automated test strip (mass/volume)Ordered By: Silvana Sharma on 03-08-2024 Glucose Auto test strip (U) [Mass/Vol] Normal mg/dL Normal [facility] Urine hemoglobin detection b y automated test stripOrdered By: Silvana Sharma on 03-08-2024 Hemoglobin Auto test strip Ql (U) Negative Negative [facility] Urine leukocyte esterase det ection by automated test stripOrdered By: Silvana Sharma on 03-08-2024 Leukocyte esterase Auto test strip Ql (U) Negative Negative [facility] Urobilinogen Auto test strip (U) [Mass/Vol]Ordered By: Silvana Sharma on 03-08-2024 Urobilinogen (U) [Mass/Vol] Normal mg/dL Normal [facility] WBC Auto (Bld) [#/Vol]Ordere d By: Silvana Sharma on 03-08-2024 WBC (Bld) [#/Vol] 11.9 10*3/uL 3.8-11.6 [facility] pH Auto test strip (U)Ordere d By: Silvana Sharma on 03-08-2024 pH (U) 6.5 [pH] 5.0-9.0 [facility] Pre-Visit Planningon 024 Pre-Visit Planning - From: Darby Dumont To: Ebonie Cash MD; Sent: 03/06/2024 14:50:51 EDT Subject: Pre-Visit Planning Due Date/Time: 03/06/2024 14:50:00 EDT Caller Name: KEY REAVES; Caller Number: H , M Ut Dr. Cash. During a pre-visit planning chart review, I noted the following documentation in the medical record: Current Problem List: Hypertension, Overweight, and Type 2 diabetes mellitus with hyperlipidemia. Current Medication List: amlodipine, hydrochlorothiazide-los leticia, and simvastatin. 03/12/2023 CT Abdomen/Pelvis w/o Contrast: Abdominal aorta is nonaneurysmal and demonstrates atherosclerotic calcification. Based on your medical judgment, can you please clarify which, if any, of the following conditions are present? I can update the Chronic Problem List with your response if you would like. -Abdominal aortic atherosclerosis -Other (please specify): In responding to this request, please exercise your independent professional judgement. The fact that a question is asked does not imply that any particular answer is desired or expected. If you have any questions, please feel free to contact me at extension [phone]. Thank you! Darby Dumont LPN From: Ebonie Cash MD To: Darby Dumont; Sent: 03/06/2024 21:24:23 EDT Subject: RE: Pre-Visit Planning Caller Name: KEY REAVES; Caller Number: Estephania , M please add the following to problem list -Abdominal aortic atherosclerosis Normal [address] [place] [address] BB Draw & Holdon 03-03-2024 BB D&H Sample drawn for Blo od Ba Normal [facility] Comment on above: Performed By: #### 1 [id number], 12447545, 91277805, 1636088, 9418767, 8671313, 3913182, 3782477 ####[facility] [address] [place] [address] BMPon 03-03-2024 Anion gap [Moles/Vol] 15 mmol/L Normal 6-16 [facility] Comment on above: Performed By: #### 1 4430846, 82821468, 47528772, 2056371, 6503858, 1012606, 8318103, 7319468 ####[facility] [address] [place] [address] Calcium [Mass/Vol] 9.4 mg/dL Normal 8.9-11.1 [facility] Comment on above: Performed By: #### 1 7380840, 04982577, 66857664, 7925620, 2836143, 2518115, 2603201, 3558041 ####[facility] [address] [place] [address] Chloride [Moles/Vol] 101 mmol/L Normal 101-111 [facility] Comment on above: Performed By: #### 1 3561247, 63834528, 93241025, 9490657, 8129487, 7658855, 4550373, 8363128 ####[facility] [address] [place] [address] CO2 [Moles/Vol] 25 mmol/L Normal 21-31 [facility] Comment on above: Performed By: #### 1 8001006, 37034036, 48818326, 7584965, 2536393, 3594668, 1440913, 7692283 ####[facility] [address] [place] [address] Creatinine [Mass/Vol] 1.0 mg/dL Normal 0.5-1.3 [facility] Comment on above: Performed By: #### 1 2208375, 54119272, 40254384, 7380963, 3086090, 3662951, 9371593, 0339980 ####[facility] [address] [place] [address] Glucose [Mass/Vol] 253 mg/dL High 55-199 [facility] Comment on above: Performed By: #### 1 1663657, 06907977, 88248321, 3938790, 8838374, 9102554, 0831244, 7721165 ####[facility] [address] [place] [address] Potassium [Moles/Vol] 3.6 mmol/L Normal 3.5-5.3 [facility] Comment on above: Performed By: #### 1 6724740, 89800149, 55297985, 8481810, 6732696, 8221025, 9099676, 9091575 ####[facility] [address] [place] [address] Sodium [Moles/Vol] 137 mmol/L Normal 135-145 [facility] Comment on above: Performed By: #### 1 3885096, 78150101, 82306161, 0261614, 0385619, 9186798, 9129228, 1495197 ####[facility] [address] [place] [address] Urea nitrogen [Mass/Vol] 19 mg/dL Normal 5-21 [facility] Comment on above: Performed By: #### 1 0192218, 19984191, 43326574, 9443166, 3712688, 6538269, 7537981, 5074412 ####[facility] [address] [place] [address] Urea nitrogen/Creatinine [Mass ratio] 19 No Units Normal 10-20 [facility] Comment on above: Performed By: #### 1 7668431, 54750437, 05688239, 9451728, 0016824, 8822122, 3334243, 0369122 ####[facility] [address] [place] [address] C Urineon 03-03-2024 Bacteria identified Cx Nom (U) Microbiology PROCEDURE: Urine Culture [R1] SOURCE: U CleanCatch BODY SITE: COLLECTED DATE/TIME: 03/01/2024 09:11 EDT RECEIVED DATE/TIME: 03/01/2024 11:30 EDT START DATE/TIME: 03/01/2024 11:30 EDT FREE TEXT SOURCE: Esteban Healy DO, DO, Kevin M. FINAL REPORTS Final Report [] Verified Date/Time: 03/03/2024 10:10 EDT 1,000 cfu/ml Mixed skin contaminants Performing Locations R1: This test was performed at: [facility], [address] [place] [address], [address] , [place], Normal [facility] Comment on above: Performed By: #### 4 [id number], [id number] ####[address] [address] CBC w/ Auto Diffon Basophils/100 WBC (Bld) 0.8 % Normal 0.0-2.0 [facility] Comment on above: Performed By: #### 1 7442180, 37003319, 60483901, 3002257, 2919622, 1258699, 2671221, 3555407 ####[address] [address] Basophils/Leukocytes Auto (Bld) [Pure # fraction] 0.1 E9/L Normal 0.0-0.2 [facility] Comment on above: Performed By: #### 1 3930853, 63195838, 45558964, 1885873, 5743980, 9113822, 0807265, 5357232 ####[address] [address] Eosinophils (Bld) [#/Vol] 0.1 E9/L Normal 0.0-0.5 [facility] Comment on above: Performed By: #### 1 4444307, 93086589, 02451829, 1094310, 7551846, 5681137, 1180523, 0852323 ####[address] [address] Eosinophils/100 WBC (Bld) 0.8 % Normal 0.0-8.0 [facility] Comment on above: Performed By: #### 1 6085441, 20449138, 45829540, 8699612, 3562662, 5960723, 3833203, 3888150 ####[address] [place] [address] Erythrocyte distribution width (RBC) [Ratio] 12.8 % Normal 10.9-14.2 [facility] Comment on above: Performed By: #### 1 4354415, 10958448, 53329826, 5381188, 7702695, 9974174, 2947424, 3045158 ####[address] [place] [address] Hematocrit (Bld) [Volume fraction] 42.5 % Normal 34.0-46.0 [facility] Comment on above: Performed By: #### 1 2059100, 17800268, 55649131, 7896003, 2924632, 7130801, 4310641, 0503059 ####[address] [address] Hemoglobin (Bld) [Mass/Vol] 14.6 g/dL Normal 12.0-16.0 [facility] Comment on above: Performed By: #### 1 3859008, 79313195, 03248205, 3661167, 2826172, 1690607, 2955631, 0828501 ####[address] [address] Lymphocytes (Bld) [#/Vol] 1.6 E9/L Normal 1.0-4.0 [facility] Comment on above: Performed By: #### 1 8361067, 71158797, 70800929, 1900190, 6533716, 9161842, 4022690, 8018843 ####[address] [address] Lymphocytes/100 WBC (Bld) 15.2 % Normal 14.0-50.0 [facility] Comment on above: Performed By: #### 1 1112261, 43033621, 91686800, 9673797, 0628768, 0049960, 0044564, 4844715 ####[address] [place] [address] MCH (RBC) [Entitic mass] 32.7 pg Normal 27.0-34.0 [facility] Comment on above: Performed By: #### 1 9034301, 39814125, 24198765, 3002120, 5628839, 5434541, 1553125, 6713596 ####[address] [address] MCHC (RBC) [Mass/Vol] 34.3 g/dL Normal 31.4-36.0 [facility] Comment on above: Performed By: #### 1 1572068, 29273116, 82685193, 8914752, 4001948, 6146555, 9561382, 7894053 ####[address] [address] MCV (RBC) [Entitic vol] 95.1 fL Normal 80.0-100.0 [facility] Comment on above: Performed By: #### 1 2447498, 70027324, 14788801, 1859410, 9983682, 1610917, 8117180, 8504327 ####[address] [address] Monocytes (Bld) [#/Vol] 0.6 E9/L Normal 0.2-1.0 [facility] Comment on above: Performed By: #### 1 2226558, 51734101, 85865384, 5569405, 9030441, 7128281, 3834142, 8452464 ####[address] [address] Neutrophils (Bld) [#/Vol] 8.3 E9/L High 2.0-7.5 [facility] Comment on above: Performed By: #### 1 4970999, 67051136, 50432365, 4351272, 3442285, 5131282, 8370127, 6616938 ####[address] [address] Neutrophils/100 WBC (Bld) 77.9 % High 36.0-75.0 [facility] Comment on above: Performed By: #### 1 5090981, 15566743, 66316024, 7039703, 0426100, 4241972, 6500535, 5998786 ####[facility] [address] [place] [address] Platelet 280.0 E9/L Normal 150.0-500.0 [facility] Comment on above: Performed By: #### 1 3055164, 22461429, 44139486, 7139124, 2923844, 8272470, 0352819, 1266668 ####[facility] [address] [place] [address] Platelet mean volume (Bld) [Entitic vol] 8.7 fL Normal 6.4-10.8 [facility] Comment on above: Performed By: #### 1 2129452, 06069207, 45162097, 7643280, 5196881, 2535517, 9362388, 3652405 ####[facility] [address] [place] [address] RBC (Bld) [#/Vol] 4.5 E12/L Normal 4.3-5.9 [facility] Comment on above: Performed By: #### 1 1735403, 27663236, 16099233, 8001778, 3878257, 1068468, 1271409, 1257515 ####[facility] [address] [place] [address] WBC corrected for nucl RBC Auto (Bld) [#/Vol] 10.7 E9/L Normal 4.0-11.0 [facility] Comment on above: Performed By: #### 1 3508261, 95133570, 85463772, 0917082, 6576556, 5088211, 3928962, 8383809 ####[facility] [address] [place] [address] CHEMISTRYOrdered By: SYSTEM SYSTEM on 03-03-2024 Lactic Acid Lvl 1.0 mmol/L Normal 0.5 - 2.2 mmol/L Remisol Chem Albumin [Mass/Vol] 4.3 g/dL Normal 3.3 - 5.0 gm/dL Remisol Chem Albumin/Globulin [Mass ratio] 1.3 {ratio} Normal 1.1 - 2.2 Remisol Chem ALP [Catalytic activity/Vol] 163 [iU]/d High 21 - 98 Int._Unit/L Remisol Chem ALT No additional P-5'-P [Catalytic activity/Vol] 61 [iU]/d High 6 - 46 Int._Unit/L Remisol Chem Anion gap [Moles/Vol] 15 mmol/L Normal 6 - 16 mEq/L Remisol Chem AST [Catalytic activity/Vol] 43 [iU]/d Normal 5 - 43 Int._Unit/L Rem[facility] Chem Bilirubin [Mass/Vol] 0.4 mg/dL Normal 0.0 - 1 .1 mg/dL Remisol Chem Bilirubin.direct [Mass/Vol] 0.1 mg/dL Normal 0.0 - 0.4 mg/dL Rem[facility] Chem Bilirubin.indirect [Mass or moles/Vol] 0.3 mg/dL Normal 0.1 - 0.9 mg/dL [facility] Calcium [Mass/Vol] 9.4 mg/dL Normal 8.9 - 11. 1 mg/dL [facility] Chloride [Moles/Vol] 101 mmol/L Normal 101 - 1 11 mmol/L [facility] CO2 [Moles/Vol] 25 mmol/L Normal 21 - 31 mmol/L [facility] Creatinine [Mass/Vol] 1.0 mg/dL Normal 0.5 - 1.3 mg/dL [facility] Chem eGFR 58 mL/min/1.73 m2 Low >=59mL/min / 1.73 m2 [facility] Globulin (S) [Mass/Vol] 3.2 g/dL Normal 1.4 - 4.0 gm/dL [facility] Glucose [Mass/Vol] 253 mg/dL High 55 - 199 mg/dL [facility] Lactic Acid Lvl 2.2 mmol/L Normal 0.5 - 2.2 mmol/L [facility] Chem Lipase [Catalytic activity/Vol] 17 U/L Normal 13 - 58 unit/L [facility] Potassium [Moles/Vol] 3.6 mmol/L Normal 3.5 - 5.3 mmol/L Rem[facility] Chem Protein [Mass/Vol] 7.5 g/dL Normal 6.0 - 7.8 gm/dL [facility] Sodium [Moles/Vol] 137 mmol/L Normal 135 - 145 mmol/L [facility] Urea nitrogen [Mass/Vol] 19 mg/dL Normal 5 - 21 mg/dL [facility] Urea nitrogen/Creatinine [Mass ratio] 19 mg/mg Normal 10 - 20 [facility] COAGULATIONOrdered By: Erika Pastrana on 03-03-2024 aPTT Coag (PPP) [Time] 33.3 s Normal 25.1 - 36.5 second(s) [facility] Auto Coag Comment on above: Interpretive Data: Wilma sweet 15 days - 4 weeks 1 - 5 months 6 - 11 months 1 - 5 years 6 - 10 years 11 - 17 years PTT Mean: 35.4 (27.6-45.6) Mean: 33.5 (24.8-40.7) Mean: 32.4 (25.1-40.7) Mean: 31.6 (24.0-39.2) Mean: 31.6 (26.9-38.7) Mean: 31.0 (24.6-38.4) Pediatric Reference ranges were obtained from a study by Robert Nassar et al. prepared from 1437 samples obtained at 7 different centers using the same coagulation reagent and instrumentation as [facility]. Currently there are no coagulation studies available worldwide for children to 14 days, and no normal ranges. Heparin therapeutic range (represented by Anti-Factor Xa activity of 0.2 - 0.4 U/mL) corresponds to PTT of 56.6 - 109.0 sec. INR Coag (PPP) [Relative time] 0.96 {INR} Invalid Interpretation Code [facility] Comment on above: Interpretive Data: I NR results are specifically intended to assess patients stabilized on long-term Anticoagulation therapy suggested INR s Less Intensive Anticoagulation 2.0 3.0 Conventional Range 3.0 4.5 PT Coag (PPP) [Time] 10.7 s Normal 9.4 - 1 2.5 second(s) [facility] Comment on above: Interpretive Data: 1 5 days - 4 weeks 1 - 5 months 6 -11 months 1-5 years 6-10 years 11 -17 years Mean: 11.2 (9.5-12.6) Mean: 11.0 (9.7-12.8) Mean: 11.0 (9.8-13.0) Mean: 11.3 (9.9-13.4) Mean: 11.7 (10.0-14.6) Mean: 11.8 (10.0 - 14.1) Pediatric Reference ranges were obtained from a study by edward Juarez al. prepared from 1437 samples obtained at 7 different centers using the same coagulation reagent and instrumentation as [facility]. Currently there are no coagulation studies available worldwide for children to 14 days, and no normal ranges. CT Abdomen/Pelvis w/ Contras ton 03-03-2024 CT Abdomen/Pelvis w/ Contrast Exam Date/Time: 03/03/2024 15:40 EDT Reason for Exam: Abdominal pain, acute, nonlocalized;Other (please specify) Report IMPRESSION: NO ACUTE INTRA-ABDOMINAL PROCESS OR SIGNIFICANT CHANGE FROM 2 DAYS AGO IDENTIFIED. CHRONIC FINDINGS, NOTED. EXAM: CT Abdomen/Pelvis w/ Contrast DATE: 03/03/2024 3:19 PM CLINICAL HISTORY: Abdominal pain, acute, nonlocalized. COMPARISON: Noncontrast abdomen and pelvis CT 03/01/2024. TECHNIQUE: Spiral imaging was obtained of the abdomen and pelvis after the uneventful infusion of approximately 100 mL of Isovue [address] scans at this facility use dose modulation, iterative reconstruction, and/or weight based dosing when appropriate to reduce radiation dose to as low as reasonably achievable. Unless otherwise stated, incidental findings identified in this report do not require routine follow-up imaging. FINDINGS: There is no abnormal bowel dilatation, wall thickening, inflammatory changes, hydronephrosis, or other significant changes from 2 days ago identified. The appendix has been removed. Previously described in chronic findings are again noted. Minimal probable dependent atelectasis and/or scarring of the lung bases appear similar. Ordering Provider: Salinas Villalobos FINAL REPORT Dictated: 03/03/2024 3:59 pm Robert Soto MD Signed (Electronic Signature): 03/03/2024 3:59 pm Signed by: Robert Soto MD Transcribed by: NENA Technologist: KIANA Technical Comments GFR (mL/min/1/73m2) 58 Contrast: Isovue 300 Contrast amount in ml's: 100 Normal [facility] Consent for Treatmenton Consent for Treatment [id number] IFF Normal [facility] Discharge Instructionson Discharge Instructions [id number] TIFF Normal [facility] ED Clinical Summaryon 2023 ED Clinical Summary (Inserted Image. Jeannette ble to display) [place] [id number] ED Clinical Summary Person Information Name: KEY REAVES Lizzie/[facility] Age: 78 Years : 1945 Sex: Female Language: Indian PCP: Ebonie Cash MD Marital Status: Phone: [phone] Visit Id: Visit Reason: Shoulder pain-swelling; Abdominal pain; Blood in stool; RIGHT SIDE PAIN AND BACK PAIN Speciality: Acuity: 2 Enc Type: Emergency Med Service: Emergency Arrival: 03/03/2024 13:57:38 Discharge: 03/03/2024 19:38:17 LOS: 000 05:41 Checkin: 03/03/2024 13:57:38 Checkout: 03/03/2024 19:38:17 Dispo Type: Home (Routine DC) EVENTS: Event Name Event Status Request Date/Time Start Date/Time Complete Date/Time Arrive Complete 03/03/2024 13:57:38 03/03/2024 13:57:38 03/03/2024 13:57:38 Document Home Meds Request 03/03/2024 13:57:38 Triage Complete 03/03/2024 13:57:38 03/03/2024 14:10:50 03/03/2024 14:10:50 Bed Assign Complete 03/03/2024 14:04:22 03/03/2024 14:04:22 03/03/2024 14:04:22 Dr Exam Complete 03/03/2024 14:04:22 03/03/2024 14:06:23 03/03/2024 14:06:23 RN Exam Complete 03/03/2024 14:04:22 03/03/2024 14:36:36 03/03/2024 14:36:36 Registration Complete 03/03/2024 14:06:23 03/03/2024 14:31:39 03/03/2024 14:31:39 EKG Complete 03/03/2024 14:11:10 03/03/2024 14:13:33 Meds Admin Complete 03/03/2024 14:14:30 03/03/2024 14:32:54 Pending Labs Complete 03/03/2024 14:14:30 03/03/2024 17:33:06 Lab Complete 03/03/2024 14:14:30 03/03/2024 15:00:13 CT Complete 03/03/2024 14:14:30 03/03/2024 15:19:21 03/03/2024 15:40:04 Meds Admin Complete 03/03/2024 14:14:59 03/03/2024 14:32:54 Pending Labs Complete 03/03/2024 14:31:20 03/03/2024 14:31:20 03/03/2024 15:00:13 Lab Complete 03/03/2024 14:31:20 03/03/2024 14:31:20 03/03/2024 15:00:13 Reg Complete Request 03/03/2024 14:31:39 Reg Bed Request Complete 03/03/2024 14:31:39 03/03/2024 14:31:39 03/03/2024 14:31:39 Pending Labs Complete 03/03/2024 14:39:29 03/03/2024 14:39:29 03/03/2024 15:10:00 Blood Collect Start 03/03/2024 14:39:29 03/03/2024 14:39:29 Pending Labs Complete 03/03/2024 14:39:52 03/03/2024 14:39:52 03/03/2024 14:39:52 Pending Labs Complete 03/03/2024 14:40:11 03/03/2024 14:40:11 03/03/2024 14:40:12 Pending Labs Complete 03/03/2024 14:58:39 03/03/2024 19:01:00 Lab Complete 03/03/2024 14:58:39 03/03/2024 19:01:00 Meds Admin Complete 03/03/2024 17:46:15 03/03/2024 18:06:06 Meds Admin Complete 03/03/2024 19:16:06 03/03/2024 19:37:13 Discharge Complete 03/03/2024 19:16:08 03/03/2024 19:39:21 03/03/2024 19:39:21 Transfer Complete 03/03/2024 19:39:21 03/03/2024 19:39:21 03/03/2024 19:39:21 ADDRESS: [address] [id number] PHYS DOC NOTES: MEDICAL INFORMATION: Prescriptions Given: New Medications [facility], [address], [place] [id number], [phone] oxycodone (oxyCODONE 5 mg Tab) 1 Tablets By Mouth every 6 hours for 3 Days. Refills: 0. Medications to Continue Taking That Have Changed [facility], [address], [place] [id number], [phone] START: ondansetron (ondansetron 4 mg Dis Tab) 1 Tablets By Mouth every 6 hours for 3 Days. Refills: 0. Other Medications START: ondansetron (Zofran ODT 4 mg Tab-Dis) 1 Tablets By Mouth every 6 hours as needed Nausea/Vomiting. Refills: 0. Medications to Continue with No Changes Other Medications amlodipine (amLODIPine 5 mg Tab) 1 Tablets By Mouth every day. Refills: 3. cephalexin (Keflex 500 mg Cap) 1 Capsules By Mouth every 6 hours for 5 Days. Refills: 0. cyclobenzaprine (cyclobenzaprine 10 mg Tab) 1 Tablets By Mouth 3 times a day as needed for spasm. Refills: 0. gabapentin (gabapentin 100 mg Cap) 1 Capsules By Mouth 3 times a day. Refills: 0. hydrochlorothiazide-los leticia (hydrochlorothiazide-lo sartan 25 mg-100 mg Tab) 1 Tablets By Mouth every day. Refills: 3. levothyroxine (levothyroxine 50 mcg (0.05 mg) Tab) 1 Tablets By Mouth every day. Refills: 3. omeprazole (omeprazole 40 mg Cap-DR) 1 Capsules By Mouth every day. Refills: 3. simvastatin (simvastatin 40 mg Tab) 1 Tablets By Mouth once a day (at bedtime). Refills: 3. PATIENT EDUCATION INFORMATION: Instructions: Biliary Colic, Adult; Gallbladder Eating Plan; Gastrointestinal Bleeding; Abdominal Pain, Adult Follow up: With: Address: When: [place] [address] [facility], [address], [facility] [address] [place] [phone] Business (1) In 3 days 03/06/2024 With: Address: When: Ebonie Juarezdiallomaddison [address] [place], [place] [phone] Business (1) In 3 days DIAGNOSIS: Abdominal pain; Abnormal liver enzymes; GI bleed Normal [facility] ED Note-Physicianon 03-03-20 ED Note-Physician Basic Information Time Seen: Salinas Villalobos DO 03/03/2024 14:06 Chief Complaint patient c/o RLQ abdominal pain that radiates around to flank with diarrhea. 1 episode of blood in stool this am. also c/o left shoulder pain that started 1 week ago. dx with UTI- started keflex on History of Present Illness 78 female presents emergency department with right-sided abdominal pain. Patient states that she was just here recently diagnosed with UTI started on Keflex. Despite taking this medication she states she is not getting any better in fact today she got much worse complaining of pain in the right lower right upper quadrant and into her right flank. Prior surgeries include appendectomy. She denies any other obvious aggravating or alleviating factors. She has had some associated nausea denies any vomiting. She did state with her most recent bowel movement she did notice some bright red blood in the stools denies any blood thinning medications she is never had this before. No other aggravating or relieving factors no other associated symptoms no other prior treatments or complaints. Family: Reviewed and noncontributory Social: lives at home Review of systems negative unless otherwise specified in the HPI. Physical Exam Vitals & Measurements T: 36.5 ?C(Oral) HR: 101(Peripheral) RR: 18 BP: 149/81 SpO2: 97% HT: 165.1 cm WT: 79.8 kg BMI: 29.28 General: The patient appears well and in no apparent distress. Patient is resting comfortably on cart. Skin: Warm, dry, no pallor noted. Head: Normocephalic, atraumatic Neck: No JVD Eye: PERRLA, EOMI ENT: Moist mucus membranes Cardiovascular: Slightly tachycardic rate regular rhythm with normal peripheral perfusion Respiratory: No respiratory distress no accessory muscle use no obvious audible wheezing Chest Wall: no deformity Musculoskeletal: normal ROM, no deformity, no swelling GI: Soft no obvious distention. No rebound or rigidity. No guarding. Mild right lower quadrant right upper quadrant tenderness palpation as well as some tenderness in the right flank region as well with CVA tenderness. Neurological: A&O moves all extremities equal strength and symmetry Psychiatric: Cooperative and appropriate Medical Decision Making Workup in the ER has been reviewed and noted. Workup is essentially benign. Patient does have mild elevation of her LFTs seen in prior lab draws. However she does point to the right upper quadrant as the point of maximal pain localization at this time. Therefore I wonder if she has underlying biliary colic. She does take omeprazole 40 mg I did encourage her to continue this. She is referred to GI as well as they may need to do additional testing such as an EGD or HIDA scan and also follow-up with her for her GI bleed. She is feeling better here after morphine Zofran discharged home at this time and given a prescription for oxycodone for pain Zofran for nausea follow-up in the outpatient setting return to ER symptoms should change or worsen. No other aggravating or relieving factors no other associated symptoms no other prior treatments or complaints. Assessment/Plan Abdominal pain (R10.9: Unspecified abdominal pain) Ordered: oxycodone, 5 mg = 1 tab(s), Oral, q6hr, X 3 day(s), # 10 tab(s), Refills(s) 0, Pharmacy: [facility], 165.1, cm, 03/03/24 14:10:00 EDT, Height/Length Dosing, 79.8, kg, 03/03/24 14:10:00 EDT, Weight Dosing oxycodone, 1 EA, Tab, Oral, Once, Stop date 03/03/24 19:15:00 EDT, STAT, Start date 03/03/24 19:15:00 EDT Abnormal liver enzymes (R74.8: Abnormal levels of other serum enzymes) GI bleed (K92.2: Gastrointestinal hemorrhage, unspecified) Orders: HYDROmorphone, 0.5 mg = 0.5 mL, Injection, IV Push, Once, Stop date 03/03/24 17:45:00 EDT, STAT, Start date 03/03/24 17:45:00 EDT, 03/03/24 17:45:00 EDT morphine, 4 mg = 1 mL, Injection, IV Push, Once, Stop date 03/03/24 14:14:00 EDT, STAT, Start date 03/03/24 14:14:00 EDT, 03/03/24 14:14:00 EDT ondansetron, 4 mg = 2 mL, Injection, IV Push, Once, Stop date 03/03/24 14:14:00 EDT, STAT, Start date 03/03/24 14:14:00 EDT, 03/03/24 14:14:00 EDT ondansetron, 4 mg = 2 mL, Injection, IV Push, Once, Stop date 03/03/24 17:45:00 EDT, STAT, Start date 03/03/24 17:45:00 EDT, 03/03/24 17:45:00 EDT ondansetron, 4 mg = 1 tab(s), Oral, q6hr, X 3 day(s), # 10 tab(s), Refills(s) 0, Pharmacy: [facility], 165.1, cm, 03/03/24 14:10:00 EDT, Height/Length Dosing, 79.8, kg, 03/03/24 14:10:00 EDT, Weight Dosing pantoprazole, 40 mg = 10 mL, Injection, IV Push, Once, Stop date 03/03/24 17:45:00 EDT, STAT, Start date 03/03/24 17:45:00 EDT, 03/03/24 17:45:00 EDT Sodium Chloride 0.9% intravenous solution, 1,000 mL, Soln-IV, IV, Once, Stop date 03/03/24 14:14:00 EDT, STAT, Start date 03/03/24 14:14:00 EDT, Infuse over 61, minute(s) Basic Metabolic Panel BB Draw & Hold CBC w/ Auto Diff CT Abdomen/Pelvis w/ Contrast ECG 12 Lead Adult eGFR Extra Green Li Tube Extra SST Tube Hepatic (more content not included)... Normal [facility] Comment on above: Result Comment: Elec tronically Signed By: Salinas Villalobos DO\.farideh\Date and Time Signed: 03/03/24 19:18 EDT ED Patient Education Noteon 03-03-2024 ED Patient Education Note Gastroenterology Biliary Colic, Adult Biliary colic is severe pain caused by a problem with the gallbladder. The gallbladder is a small organ in the upper right part of the abdomen. The gallbladder stores a digestive fluid produced in the liver (bile) that helps the body break down fat. Bile and other digestive enzymes are carried from the liver to the small intestine through tube-like structures called bile ducts. The gallbladder and the bile ducts form the biliary tract. Sometimes, hard deposits of digestive fluids (gallstones) form in the gallbladder and block the flow of bile from the gallbladder, causing biliary colic. This condition is also called a gallbladder attack. Gallstones can be as small as a grain of sand or as big as a golf ball. There could be just one gallstone in the gallbladder, or there could be many. What are the causes? This condition is usually caused by gallstones. Less often, a tumor could block the flow of bile from the gallbladder and trigger biliary colic. What increases the risk? The following factors may make you more likely to develop this condition: ? Being female. ? Having a family history of gallstones. ? Being obese. ? Losing weight suddenly or quickly. ? Eating a diet that is high in calories, low in fiber, and rich in refined carbohydrates, such as white bread and white rice. ? Having certain health conditions, such as: ? An intestinal disease that affects nutrient absorption, such as Crohn's disease. ? A metabolic condition, such as diabetes or metabolic syndrome. Metabolic syndrome occurs when someone has high blood pressure, high cholesterol, and diabetes. ? A blood condition, such as hemolytic anemia or sickle cell disease. What are the signs or symptoms? The main symptom of this condition is severe pain in the upper right side of the abdomen. You may feel this pain below the chest but above the hip. This pain often occurs at night or after eating a meal that is high in fat. This pain may get worse for up to an hour and last as long as 12 hours. In most cases, the pain fades (subsides) within 2 hours. Other symptoms of this condition include: ? Nausea and vomiting. ? Pain under the right shoulder. How is this diagnosed? This condition is diagnosed based on your medical history, your symptoms, and a physical exam. You may also have tests, including: ? Blood tests to rule out infection or inflammation of the bile ducts, gallbladder, pancreas, or liver. ? Imaging studies, such as: ? An ultrasound. ? A CT scan. ? An MRI. In some cases, you may need to have an imaging study done using a small amount of radioactive material (nuclear medicine) to confirm the diagnosis. How is this treated? This condition may be treated with medicines to: ? Relieve your pain or nausea. ? Dissolve the gallstones. It may take months or years before the gallstones are completely gone. If you have gallstones, or if you have a tumor in the gallbladder that is causing biliary colic, you may need surgery to remove the gallbladder (cholecystectomy). Follow these instructions at home: Eating and drinking ? Drink enough fluid to keep your urine pale yellow. ? Follow instructions from your health care provider about eating or drinking restrictions. These may include avoiding: ? Fatty, greasy, and fried foods. ? Any foods that make the pain worse. ? Overeating. ? Having a large meal after not eating for a while. General instructions ? Take owog-hnq-hkigxfq and prescription medicines only as told by your health care provider. ? Keep all follow-up visits as told by your health care provider. This is important. How is this prevented? Steps to prevent this condition include: ? Maintaining a healthy body weight. ? Getting regular exercise. ? Eating a healthy diet that is high in fiber and low in fat. ? Limiting how much sugar and refined carbohydrates you eat. Contact a health care provider if: ? Your pain lasts more than 5 hours. ? You vomit. ? You have a fever and chills. ? Your pain gets worse. Get help right away if: ? Your skin or the whites of your eyes look yellow (jaundice). ? Your have tea-colored urine and light-colored stools (feces). ? You are dizzy or you faint. Summary ? Biliary colic is severe pain caused by a problem with the gallbladder. The gallbladder is a small organ in the upper right part of your abdomen. ? Treatment for this condition may include medicine to relieve your pain or nausea, or medicine to slowly dissolve the gallstones. ? If you have gallstones, or if you have a tumor in the gallbladder that is causing biliary colic, you may need surgery to remove the gallbladder (cholecystectomy). This information is not intended to replace advice given to you by your health care provider. Make sure you discuss any questions you have with your health care provider. Document Revised: 10/28/2020 Document Reviewed: (more content not included)... Normal [facility] ED Patient Summaryon 024 ED Patient Summary (Inserted Image. Jeannette ble to display) [address] [address] Patient Discharge Instructions Person Information Name: KEY REAVES Age: 78 Years Arrival Date: 03/03/2024 13:57:38 Discharge Diagnosis: Abdominal pain; Abnormal liver enzymes; GI bleed Primary Care Physician: Ebonie Cash MD Provider Information Primary Provider: Salinas Villalobos DO Advanced Operational Communication Chief:None The exam and treatment you received in the Emergency Department were for an urgent problem and are not intended as complete care. It is important that you follow up with a doctor, nurse practitioner, or physician?s promotions assistant sales marketing for ongoing care. If your symptoms become worse or you do not improve as expected and you are unable to reach your usual health care provider, you should return to the Emergency Department. We are available 24 hours a day. KEY REAVES has been given the following list of patient education materials, prescriptions and follow-up instructions: Follow-up Instructions: With: Address: When: Osman Ortiz [address] [place] [address], [address], [address] [address] [phone] Business (1) In 3 days 03/06/2024 With: Address: When: Ebonie Cash [address] [place] [address] [phone] Business (1) In 3 days In the event that this physician does not participate in your insurance network, please consult with your insurance company to find a nearby participating provider. Patient Education Materials: Biliary Colic, Adult; Gallbladder Eating Plan; Gastrointestinal Bleeding; Abdominal Pain, Adult A MESSAGE TO ALL PATIENTS REGARDING OPIOIDS PRESCRIPTION OPIOIDS: WHAT YOU NEED TO KNOW Prescription opioids can be used to help relieve ygsfauhw-xv-bckfkq pain and are often prescribed following a surgery or injury, or for certain health conditions. These medications can be an important part of the treatment but also come with serious risks. It is important to work with your healthcare provider to make sure you are getting the safest, most effective care. WHAT ARE THE RISKS AND SIDE EFFECTS OF OPIOID USE? Prescription opioids carry serious risks of addiction and overdose, especially with prolonged use. An opioid overdose, often marked by slowed breathing, can cause sudden . The use of prescription opioids can have a number of side effects as well, even when taken as directed: ? Tolerance?meaning you might need to take more of the medication for the same pain relief ? Physical dependence?meaning you have symptoms of withdrawal when a medication is stopped ? Increased sensitivity to pain ? Constipation ? Nausea, vomiting, and dry mouth ? Sleepiness and dizziness ? Confusion ? Depression ? Low levels of testosterone that can result in lower sex drive, energy, and strength ? Itching and sweating RISKS ARE GREATER WITH: ? History of drug misuse, substance use disorder, or overdose ? Mental health conditions (such as depression or anxiety) ? Sleep apnea ? Older age (65 years and older) ? Avoid alcohol while taking prescription opioids. Also, unless specifically advised by your health care provider, medications to avoid include: ? Benzodiazepines (such as Xanax or Valium) ? Muscle relaxants (such as Soma or Flexeril) ? Hypnotics (such as Ambien or Lunesta) ? Other prescription opioids KNOW YOUR OPTIONS Talk to your health care provider about ways to manage your pain that don?t involve prescription opioids. Some of these options may actually work better and have fewer risks and side effects. Options may include: ? Pain relievers such as acetaminophen, ibuprofen, and naproxen ? Some medication that are also used for depression or seizures ? Physical therapy and exercise ? Cognitive behavioral therapy, a psychological, goal-directed approach, in which patients learn how to modify physical, behavioral, and emotional triggers of pain and stress. IF YOU ARE PRESCRIBED OPIOIDS FOR PAIN: ? Never take opioids in greater amounts or more often than prescribed. ? Follow up with your primary health care provider. o Work together to create a plan on how to manage your pain. o Talk about ways to help manage your pain that don?t involve prescription opioids. o Talk about any and all concerns and side effects. ? Help prevent misuse and abuse o Never sell or share prescription opioids. o Never use another person?s prescription opioids. ? Store prescription opioids in a secure place and out of reach of others (this may include visitors, children, friends, and family). ? Safely dispose of unused prescription opioids: Find your community drug take-back program or your pharmacy mail-back program, or flush them down the toilet, following guidance from the Food and Drug Administration (www.fda.gov/Drugs/Reso urcesForYou). ? Visit www.cdc.gov/drugoverdos e to learn about the risks of op (more content not included)... Normal [facility] HEMATOLOGYOrdered By: SYSTEM SYSTEM on 03-03-2024 Basophils/100 WBC (Bld) 0.8 % Normal 0.0 - 2.0 % Remisol Heme Basophils/Leukocytes Auto (Bld) [Pure # fraction] 0.1 E9/L Normal 0.0 - 0.2 E9/L Remisol Heme Eosinophils (Bld) [#/Vol] 0.1 E9/L Normal 0.0 - 0.5 E9/L Remisol Heme Eosinophils/100 WBC (Bld) 0.8 % Normal 0.0 - 8.0 % Remisol Heme Erythrocyte distribution width (RBC) [Ratio] 12.8 % Normal 10.9 - 14.2 % Remisol Heme Hematocrit (Bld) [Volume fraction] 42.5 % Normal 34.0 - 46.0 % Remisol Heme Hemoglobin (Bld) [Mass/Vol] 14.6 g/dL Normal 12.0 - 16.0 gm/dL Remisol Heme Lymphocytes (Bld) [#/Vol] 1.6 E9/L Normal 1.0 - 4.0 E9/L Remisol Heme Lymphocytes/100 WBC (Bld) 15.2 % Normal 14.0 - 50.0 % Remisol Heme MCH (RBC) [Entitic mass] 32.7 pg Normal 27.0 - 34.0 pg Remisol Heme MCHC (RBC) [Mass/Vol] 34.3 g/dL Normal 31.4 - 36.0 gm/dL Remisol Heme MCV (RBC) [Entitic vol] 95.1 fL Normal 80.0 - 100.0 fL Remisol Heme Monocytes (Bld) [#/Vol] 0.6 E9/L Normal 0.2 - 1.0 E9/L Remisol Heme Monocytes/100 WBC (Bld) 5.3 % Normal 4.0 - 14.0 % Remisol Heme Neutrophils (Bld) [#/Vol] 8.3 E9/L High 2.0 - 7.5 E9/L Rem[facility] Heme Neutrophils/100 WBC (Bld) 77.9 % High 36.0 - 75.0 % Rem[facility] Heme Platelet 280.0 E9/L Normal 150.0 - 500.0 E9/L [facility] Heme Platelet mean volume (Bld) [Entitic vol] 8.7 fL Normal 6.4 - 10.8 fL Rem[facility] Heme RBC (Bld) [#/Vol] 4.5 E12/L Normal 4.3 - 5.9 E12/L [facility]e WBC corrected for nucl RBC Auto (Bld) [#/Vol] 10.7 E9/L Normal 4.0 - 11.0 E9/L [facility] Heme Hep Func Panelon 03-03-2024 Albumin [Mass/Vol] 4.3 g/dL Normal 3.3-5.0 [facility] Comment on above: Performed By: #### 1 [id number], 84858233, 91019112, 2710010, 1981585, 2480045, 8273482, 3599501 ####[facility] [address] [place] [address] Albumin/Globulin (S) [Mass conc ratio] 1.3 Normal 1.1-2.2 [facility] Comment on above: Performed By: #### 1 3536721, 10718412, 99047920, 8856593, 0242553, 4087966, 4505797, 6535746 ####[facility] [address] [place] [address] ALP [Catalytic activity/Vol] 163 Int._Unit/L High 21-98 [facility] Comment on above: Performed By: #### 1 8666614, 53957805, 95416171, 4405455, 4773661, 2660640, 8864061, 1165111 ####[facility] [address] [place] [address] ALT No additional P-5'-P [Catalytic activity/Vol] 61 Int._Unit/L High 6-46 [facility] Comment on above: Performed By: #### 1 7402403, 68128349, 34941618, 1069635, 2448333, 2161610, 8004997, 9472437 ####[place] [address] [place] [address]37357 AST [Catalytic activity/Vol] 43 Int._Unit/L Normal 5-43 [facility] Comment on above: Performed By: #### 1 3728195, 92833524, 81957484, 5869280, 4554312, 0815175, 5407086, 0352037 ####[facility] [address] [place], [place] [address] Bilirubin [Mass/Vol] 0.4 mg/dL Normal 0.0-1.1 [facility] Comment on above: Performed By: #### 1 9045207, 15037901, 71200509, 6879962, 5024920, 9648943, 7078697, 1539216 ####[facility] [address] [place] [address] Bilirubin.direct [Mass/Vol] 0.1 mg/dL Normal 0.0-0.4 [facility] Comment on above: Performed By: #### 1 0153187, 24015202, 66574649, 0621830, 5632684, 6921379, 6324107, 1678070 ####[facility] [address] [place] [address] Bilirubin.indirect [Mass or moles/Vol] 0.3 mg/dL Normal 0.1-0.9 [facility] Comment on above: Performed By: #### 1 2916203, 37896360, 08053104, 7086251, 2941341, 1429076, 7604347, 2477962 ####[place] [address] [place] [address] Globulin (S) [Mass/Vol] 3.2 g/dL Normal 1.4-4.0 [facility] Comment on above: Performed By: #### 1 1887603, 58226500, 76748561, 7272133, 3778373, 4654414, 9301125, 1724375 ####[place] [address] [place] [address] Protein [Mass/Vol] 7.5 g/dL Normal 6.0-7.8 [facility] Comment on above: Performed By: #### 1 4937434, 12505835, 81611091, 7294697, 4037309, 8226711, 3788200, 7232861 ####[address] [address] Lactic Acidon 03-03-2024 Lactic Acid Lvl 1.0 mmol/L Normal 0.5-2.2 [facility] Comment on above: Order Comment: Order added by EKS Rule. (FT_LACTIC_ACID_REFLEX) Adds reflex Lactic Acid 4 hours after initial if result is greater than or equal to 2.0. Performed By: #### 2 964334 ####[address] [address] Lactic Acid Lvl 2.2 mmol/L Normal 0.5-2.2 [facility] Comment on above: Performed By: #### 1 8619883, 14179584, 33263292, 6927696, 8571854, 4068892, 1492198, 8258257 ####[place] [place] [address] Lipase Levelon 03-03-2024 Lipase [Catalytic activity/Vol] 17 U/L Normal 13-58 [facility] Comment on above: Performed By: #### 1 5357696, 40149871, 49226375, 2523597, 4773895, 3328784, 3899237, 0097729 ####[facility] [address] [place] [address] PT & PTTon 03-03-2024 aPTT Coag (PPP) [Time] 33.3 second(s) Normal 25.1-36.5 [facility] Comment on above: Result Comment: Para meter 15 days - 4 weeks 1 - 5 months 6 - 11 months 1 - 5 years 6 - 10 years 11 - 17 years PTT Mean: 35.4 (27.6-45.6) Mean: 33.5 (24.8-40.7) Mean: 32.4 (25.1-40.7) Mean: 31.6 (24.0-39.2) Mean: 31.6 (26.9-38.7) Mean: 31.0 (24.6-38.4) Pediatric Reference ranges were obtained from a study by Robert Nassar et al. prepared from 1437 samples obtained at 7 different centers using the same coagulation reagent and instrumentation as [facility]. Currently there are no coagulation studies available worldwide for children to 14 days, and no normal ranges. Heparin therapeutic range (represented by Anti-Factor Xa activity of 0.2 - 0.4 U/mL) corresponds to PTT of 56.6 - 109.0 sec. Performed By: #### 1 3853893, 65886639, 61549166, 5245676, 5201443, 7397355, 3862332, 8224595 ####[facility] [address] [place] [address] INR Coag (PPP) [Relative time] 0.96 {INR} Invalid Interpretation Code [facility] Comment on above: Result Comment: INR results are specifically intended to assess patients stabilized on long-term Anticoagulation therapy suggested INR?s ?Less Intensive Anticoagulation? 2.0 ? 3.0 Conventional Range 3.0 ? 4.5 Performed By: #### 1 8066764, 68403343, 64358971, 2180034, 6418369, 6490553, 4554451, 4644889 ####[facility] [address] [place] [address] PT Coag (PPP) [Time] 10.7 second(s) Normal 9.4-12.5 [facility] Comment on above: Result Comment: 15 d ays - 4 weeks 1 - 5 months 6 -11 months 1-5 years 6-10 years 11 -17 years Mean: 11.2 (9.5-12.6) Mean: 11.0 (9.7-12.8) Mean: 11.0 (9.8-13.0) Mean: 11.3 (9.9-13.4) Mean: 11.7 (10.0-14.6) Mean: 11.8 (10.0 - 14.1) Pediatric Reference ranges were obtained from a study by Robert Nassar et al. prepared from 1437 samples obtained at 7 different centers using the same coagulation reagent and instrumentation as [facility]. Currently there are no coagulation studies available worldwide for children to 14 days, and no normal ranges. Performed By: #### 1 8695963, 35274496, 01013386, 2346344, 9220887, 1605909, 1319081, 5385415 ####[facility] [address] [place] [address] UA with Cult Rflxon 03-03-20 24 Bilirubin Ql (U) Negative Normal Negative [facility] Comment on above: Performed By: #### 4 [id number] ####[facility] [address] [place] [address] Clarity (U) Clear Normal Clear [facility] Comment on above: Performed By: #### 4 [id number] ####[facility] [address] [place] [address] Color (U) Colorless Abnormal Yellow [facility] Comment on above: Result Comment: Micr oscopic readings are only performed on those samples that meet specific criteria set forth by [facility]. Performed By: #### 4 [id number] ####[facility] [address] [place] [address] Glucose Ql (U) Negative Normal Negative [facility] Comment on above: Performed By: #### 4 [id number] ####[address] [address] Hemoglobin Auto test strip (U) [Mass/Vol] Negative Normal Negative [facility] Comment on above: Performed By: #### 4 [id number] ####[address] [address] Ketones Auto test strip Ql (U) Negative Normal Negative [facility] Comment on above: Performed By: #### 4 [id number] ####[address] [address] Leukocyte esterase Auto test strip Ql (U) Negative Normal Negative [facility] Comment on above: Performed By: #### 4 [id number] ####[address] [address] Nitrite Auto test strip Ql (U) Negative Normal Negative [facility] Comment on above: Performed By: #### 4 [id number] ####[address] [address] pH (U) 5.0 [pH] Invalid Interpretation Code 5.0-9.0 [facility] Comment on above: Performed By: #### 4 [id number] ####[address] [address] Protein Ql (U) Negative Normal Negative [facility] Comment on above: Performed By: #### 4 [id number] ####[address] [address] Specific gravity (U) [Rel density] >1.050 Normal 1.005-1.030 [facility] Comment on above: Performed By: #### 4 [id number] ####[address] [address] Urobilinogen (U) [Mass/Vol] Negative Normal Negative [facility] Comment on above: Performed By: #### 4 [id number] ####[address] [address] Type of Urine collection method Clean Catch Normal [facility] Comment on above: Performed By: #### 4 [id number] ####[facility] [address] [place] [address] URINALYSISOrdered By: Nesha Anderson on 03-03-2024 Bilirubin Ql (U) Negative Normal Negativemg/ dL [facility] UA Auto SS Clarity (U) Clear (03/03/24 5:15 PM) Normal Clear [facility] UA Auto SS Color (U) Colorless 1 *ABN* (03/03/24 5:15 PM) Invalid Interpretation Code Yellow [facility] UA Auto SS Comment on above: Interpretive Data: M icroscopic readings are only performed on those samples that meet specific criteria set forth by [facility]. Glucose Ql (U) Negative Normal Negativemg/ dL [facility] UA Auto SS Hemoglobin Auto test strip (U) [Mass/Vol] Negative (03/03/24 5:15 PM) Normal Negative [facility] UA Auto SS Ketones Auto test strip Ql (U) Negative Normal Negativemg/ dL [facility] UA Auto SS Leukocyte esterase Auto test strip Ql (U) Negative (03/03/24 5:15 PM) Normal Negative [facility] UA Auto SS Nitrite Auto test strip Ql (U) Negative Normal Negativemg/ dL [facility] UA Auto SS pH (U) 5.0 *NA* (03/03/24 5:15 PM) Invalid Interpretation Code 5.0 - 9.0 [facility] UA Auto SS Protein Ql (U) Negative Normal Negativemg/ dL [facility] UA Auto SS Specific gravity (U) [Rel density] >1.050 (03/03/24 5:15 PM) Normal 1.005 - 1.030 [facility] UA Auto SS Urobilinogen (U) [Mass/Vol] Negative Normal Negativemg/ dL [facility] UA Auto SS URINALYSISOrdered By: Salinas ruelas on 03-03-2024 UA Spec Desc Clean Catch (03/03/24 5:15 PM) Normal [facility] UA Auto SS Work Phone: eGFRon 03-03-2024 eGFR 58 mL/min/1.73 m2 Low >=59 [facility] Comment on above: Order Comment: Order added by Discern Expert. Performed By: #### 1 7036155, 88808561, 62442963, 2907578, 2115610, 8161757, 5917412, 3054277 ####[facility] [address] [place] [address] BMPon 03-01-2024 Anion gap [Moles/Vol] 15 mmol/L Normal 6-16 [facility] Comment on above: Performed By: #### 2 611144, 5589022, 93722485 ####[facility] [address] [place] [address] Calcium [Mass/Vol] 9.7 mg/dL Normal 8.9-11.1 [facility] Comment on above: Performed By: #### 2 053450, 8175682, 08861958 ####[facility] [address] [place] [address] Chloride [Moles/Vol] 99 mmol/L Low 101-111 [facility] Comment on above: Performed By: #### 2 599735, 7582184, 30000576 ####[facility] [address] [place] [address] CO2 [Moles/Vol] 27 mmol/L Normal 21-31 [facility] Comment on above: Performed By: #### 2 967212, 2277627, 54112882 ####[facility] [address] [place] [address] Creatinine [Mass/Vol] 1.0 mg/dL Normal 0.5-1.3 [facility] Comment on above: Performed By: #### 2 367598, 2210563, 17639372 ####[facility] [address] [place] [place] [address] Glucose [Mass/Vol] 206 mg/dL High 55-199 [facility] Comment on above: Performed By: #### 2 919257, 5184965, 71387149 ####[facility] [address] [place] [place] [address] Potassium [Moles/Vol] 3.6 mmol/L Normal 3.5-5.3 [facility] Comment on above: Performed By: #### 2 120878, 8708876, 44509486 ####[facility] [address] [place] [address] Sodium [Moles/Vol] 137 mmol/L Normal 135-145 [facility] Comment on above: Performed By: #### 2 094415, 3473078, 70673174 ####[facility] [address] [place] [address] Urea nitrogen [Mass/Vol] 21 mg/dL Normal 5-21 [facility] Comment on above: Performed By: #### 2 148827, 9525227, 43909425 ####[facility] [address] [place] [address] Urea nitrogen/Creatinine [Mass ratio] 21 No Units High 10-20 [facility] Comment on above: Performed By: #### 2 928069, 7930248, 92257199 ####[facility] [address] [place] [address] CBC w/ Auto Diffon 4 Basophils/100 WBC (Bld) 0.9 % Normal 0.0-2.0 [facility] Comment on above: Performed By: #### 2 883614, 6104236, 54758634 ####[address] [address] Basophils/Leukocytes Auto (Bld) [Pure # fraction] 0.1 E9/L Normal 0.0-0.2 [facility] Comment on above: Performed By: #### 2 101767, 5149664, 91761131 ####[address] [address] Eosinophils (Bld) [#/Vol] 0.2 E9/L Normal 0.0-0.5 [facility] Comment on above: Performed By: #### 2 409863, 2343185, 77586859 ####[facility] [address] [place] [address] Eosinophils/100 WBC (Bld) 1.5 % Normal 0.0-8.0 [facility] Comment on above: Performed By: #### 2 214998, 8609322, 99399453 ####[address] [address] Erythrocyte distribution width (RBC) [Ratio] 13.0 % Normal 10.9-14.2 [facility] Comment on above: Performed By: #### 2 [id number], [id number], [id number] ####[address] [address] Hematocrit (Bld) [Volume fraction] 43.3 % Normal 34.0-46.0 [facility] Comment on above: Performed By: #### 2 [id number], [id number], [id number] ####[address] [address] Hemoglobin (Bld) [Mass/Vol] 14.5 g/dL Normal 12.0-16.0 [facility] Comment on above: Performed By: #### 2 [id number], [id number], [id number] ####[address] [address] Lymphocytes (Bld) [#/Vol] 2.2 E9/L Normal 1.0-4.0 [facility] Comment on above: Performed By: #### 2 [id number], [id number], [id number] ####[address] [address] Lymphocytes/100 WBC (Bld) 20.3 % Normal 14.0-50.0 [facility] Comment on above: Performed By: #### 2 685685, [id number], [id number] ####[address] [address] MCH (RBC) [Entitic mass] 32.0 pg Normal 27.0-34.0 [facility] Comment on above: Performed By: #### 2 793245, [id number], [id number] ####[address] [address] MCHC (RBC) [Mass/Vol] 33.5 g/dL Normal 31.4-36.0 [facility] Comment on above: Performed By: #### 2 135228, [id number], [id number] ####[address] [address] MCV (RBC) [Entitic vol] 95.7 fL Normal 80.0-100.0 [facility] Comment on above: Performed By: #### 2 274485, 9744809, [id number] ####[address] [address] Monocytes (Bld) [#/Vol] 0.7 E9/L Normal 0.2-1.0 [facility] Comment on above: Performed By: #### 2 083413, 1331375, [id number] ####[address] [address] Neutrophils (Bld) [#/Vol] 7.7 E9/L High 2.0-7.5 [facility] Comment on above: Performed By: #### 2 285361, 3061374, [id number] ####[address] [address] Neutrophils/100 WBC (Bld) 70.4 % Normal 36.0-75.0 [facility] Comment on above: Performed By: #### 2 048765, 1956696, [id number] ####[address] [address] Platelet 286.0 E9/L Normal 150.0-500.0 [facility] Comment on above: Performed By: #### 2 463626, [id number], [id number] ####[address] [address] Platelet mean volume (Bld) [Entitic vol] 9.0 fL Normal 6.4-10.8 [facility] Comment on above: Performed By: #### 2 520481, [id number], [id number] ####[address] [place] [address] RBC (Bld) [#/Vol] 4.5 E12/L Normal 4.3-5.9 [facility] Comment on above: Performed By: #### 2 931891, 3745938, [id number] ####[facility] [address] [place] [address] WBC corrected for nucl RBC Auto (Bld) [#/Vol] 10.9 E9/L Normal 4.0-11.0 [facility] Comment on above: Performed By: #### 2 817242, [id number], [id number] ####[facility] [address] [place] [address] CHEMISTRYOrdered By: SYSTEM SYSTEM on 03-01-2024 Anion gap [Moles/Vol] 15 mmol/L Normal 6 - 16 mEq/L Remisol Chem Calcium [Mass/Vol] 9.7 mg/dL Normal 8.9 - 11. 1 mg/dL Remisol Chem Chloride [Moles/Vol] 99 mmol/L Low 101 - 1 11 mmol/L Remisol Chem CO2 [Moles/Vol] 27 mmol/L Normal 21 - 31 mmol/L Remisol Chem Creatinine [Mass/Vol] 1.0 mg/dL Normal 0.5 - 1.3 mg/dL Remisol Chem eGFR 58 mL/min/1.73 m2 Low >=59mL/min / 1.73 m2 Remisol Chem Glucose [Mass/Vol] 206 mg/dL High 55 - 199 mg/dL Remisol Chem Potassium [Moles/Vol] 3.6 mmol/L Normal 3.5 - 5.3 mmol/L Remisol Chem Sodium [Moles/Vol] 137 mmol/L Normal 135 - 145 mmol/L Remisol Chem Urea nitrogen [Mass/Vol] 21 mg/dL Normal 5 - 21 mg/dL Remisol Chem Urea nitrogen/Creatinine [Mass ratio] 21 mg/mg High 10 - [address] Abdomen/Pelvis w/o Contra ston 03-01-2024 CT Abdomen/Pelvis w/o Contrast Exam Date/Time: 03/01/2024 08:53 EDT Reason for Exam: right flank pain, hematuria;Other (please specify) Report IMPRESSION: NO ACUTE INTRA-ABDOMINAL PROCESS OR SIGNIFICANT CHANGE FROM 03/12/2023 IDENTIFIED. CHRONIC FINDINGS, NOTED. CLINICAL HISTORY: right flank pain, hematuria. COMPARISON: 03/12/2023. TECHNIQUE: Spiral unenhanced images were obtained from above the kidneys through the urinary bladder without contrast. All CT scans at this facility use dose modulation, iterative reconstruction, and/or weight based dosing when appropriate to reduce radiation dose to as low as reasonably achievable. Unless otherwise stated, incidental findings identified in this report do not require routine follow-up imaging. FINDINGS: Liver: Minimal hepatic steatosis, similar to 03/12/2023. No or evidence of enlargement or suspicious lesion of the visualized segments identified without contrast. Biliary: The gallbladder is unremarkable. No abnormal biliary ductal dilatation. Pancreas: No mass, organized fluid collection, or abnormal pancreatic ductal dilatation. Spleen: Not enlarged. No mass identified without contrast. Adrenals: Unremarkable. Kidneys: Minimal chronic perinephric inflammation similar to 03/12/2023. Both unenhanced kidneys are otherwise unremarkable. No significant urinary tract calculi, hydronephrosis, or suspicious mass. GI tract: No abnormal dilation or wall thickening. The appendix has been removed. Lymph nodes: No pathologically enlarged lymph nodes. Mesentery/peritoneum: No organized fluid collection, ascites, focal inflammatory changes, or mass. Retroperitoneum: No organized fluid collection, focal inflammatory changes or mass. Vasculature: No aneurysm. Minimal calcified atherosclerotic plaquing. Pelvis: The urinary bladder, uterus, and adnexa are unremarkable. No mass, organized fluid collection, or ascites. Bones/soft tissue: No acute osseous findings identified. Chronic mild to moderate T11 compression fracture and degenerative changes predominantly in the lower lumbar levels. Small fat-containing inguinal hernia again noted. Lower thorax: Noncontributory. Report Ordering Provider: Esteban Healy FINAL REPORT Dictated: 03/01/2024 9:33 am Robert Soto MD Signed (Electronic Signature): 03/01/2024 9:33 am Signed by: Robert Soto MD Transcribed by: NENA Technologist: KIANA Technical Comments Rectal Contrast Given? No Oral contrast amount in ml's: 0 [facility] Consent for Treatmenton Consent for Treatment [id number] IFF Normal [facility] Discharge Instructionson Discharge Instructions [id number] TIFF Normal [facility] ED Clinical Summaryon 2023 ED Clinical Summary (Inserted Image. Jeannette ble to display) [place] [id number] ED Clinical Summary Person Information Name: KEY REAVES Lizzie/[facility] Age: 78 Years : 1945 Sex: Female Language: Indian PCP: Ebonie Cash MD Marital Status: Phone: [phone] Visit Id: Visit Reason: Flank pain; BLOOD IN URINE Speciality: Acuity: 3 Enc Type: Emergency Med Service: Emergency Arrival: 03/01/2024 07:39:34 Discharge: 03/01/2024 10:11:17 LOS: 000 02:32 Checkin: 03/01/2024 07:39:34 Checkout: 03/01/2024 10:11:17 Dispo Type: Home (Routine DC) EVENTS: Event Name Event Status Request Date/Time Start Date/Time Complete Date/Time Arrive Complete 03/01/2024 07:39:34 03/01/2024 07:39:34 03/01/2024 07:39:34 Document Home Meds Request 03/01/2024 07:39:34 Triage Complete 03/01/2024 07:39:34 03/01/2024 07:56:37 03/01/2024 07:56:37 Registration Complete 03/01/2024 07:43:32 03/01/2024 07:43:32 03/01/2024 07:43:32 Reg Complete Request 03/01/2024 07:43:32 Reg Bed Request Complete 03/01/2024 07:43:32 03/01/2024 07:43:32 03/01/2024 07:43:32 Pending Labs Complete 03/01/2024 07:45:07 03/01/2024 09:25:34 Bed Assign Complete 03/01/2024 07:49:39 03/01/2024 07:49:39 03/01/2024 07:49:39 Dr Exam Complete 03/01/2024 07:49:39 03/01/2024 07:51:41 03/01/2024 07:51:41 RN Exam Complete 03/01/2024 07:49:39 03/01/2024 07:58:22 03/01/2024 07:58:22 Registration Request 03/01/2024 07:51:41 Pending Labs Complete 03/01/2024 08:02:12 03/01/2024 09:05:46 Lab Complete 03/01/2024 08:02:12 03/01/2024 09:05:46 CT Complete 03/01/2024 08:02:12 03/01/2024 08:30:14 03/01/2024 08:53:45 Meds Admin Complete 03/01/2024 08:02:41 03/01/2024 08:22:40 Pending Labs Complete 03/01/2024 08:22:18 03/01/2024 08:22:18 03/01/2024 09:05:46 Lab Complete 03/01/2024 08:22:18 03/01/2024 08:22:18 03/01/2024 09:05:46 Pending Labs Complete 03/01/2024 08:22:52 03/01/2024 08:22:52 03/01/2024 08:22:52 Pending Labs Collected 03/01/2024 09:25:35 03/01/2024 09:25:35 Lab Collected 03/01/2024 09:25:35 03/01/2024 09:25:35 Discharge Complete 03/01/2024 09:40:51 03/01/2024 10:11:22 03/01/2024 10:11:22 Transfer Complete 03/01/2024 10:11:22 03/01/2024 10:11:22 03/01/2024 10:11:22 ADDRESS: [address] [phone] PHYS DOC NOTES: MEDICAL INFORMATION: Prescriptions Given: New Medications [facility], [address] [place], [place] [id number], [phone] cephalexin (Keflex 500 mg Cap) 1 Capsules By Mouth every 6 hours for 5 Days. Refills: 0. Medications to Continue with No Changes Other Medications gabapentin (gabapentin 100 mg Cap) 1 Capsules By Mouth 3 times a day. Refills: 0. ondansetron (Zofran ODT 4 mg Tab-Dis) 1 Tablets By Mouth every 6 hours as needed Nausea/Vomiting. Refills: 0. PATIENT EDUCATION INFORMATION: Instructions: Urinary Tract Infection, Adult Follow up: With: Address: When: Ebonie Cash [address] [place] [phone] Business (1) In 3 days 03/04/2024 Comments: Call the office of your primary care doctor to arrange for follow-up within the above-stated timeframe. Follow-up with your primary care doctor about this ED visit. You should review your labs, imaging, and diagnoses from this ED visit with your primary care physician. There are occasionally non-emergent findings that require additional follow-up after your ED visit. If you were prescribed medications you should discuss possible side-effects and drug interactions with your pharmacist. Call 911 or go to the nearest Emergency Department if you develop any new or worsening symptoms. Seek immediate medical attention if you develop: worsening abdominal pain, new or worsening nausea, new or worsening vomiting, new or worsening diarrhea, chest pain, shortness of breath, pain with urination, problems urinating, fever, chills, weakness, or any new or worsening symptoms. DIAGNOSIS: Acute lower UTI (urinary tract infection); Hematuria [facility] ED Note-Physicianon 03-01-20 ED Note-Physician Basic Information Time Seen: Esteban Healy DO 03/01/2024 07:51 Chief Complaint c/o right flank pain x1 week. Noticed blood in urine last night. Denies dysuria. c/o burning. Denies N/V. History of Present Illness 78-year-old female to the emergency department chief complaint of right flank pain for the last week. She noticed it began radiating down into her right lower abdomen. She denies any fever, sweats, chills. No nausea, vomiting, diarrhea. She complains of some burning and urinary frequency. She noted some blood in the urine last night. No history of kidney stones. She is otherwise at her baseline health. The discomfort kept her up last night prompting her ED visit today. She has an upcoming appoint with her primary care doctor for this complaint however it is next week. Review of Systems A 10 point review of systems is negative except as noted above. Medical and Surgical History: Reviewed and noted Social history: Lives at home Tobacco: Denies Physical Exam Vitals & Measurements T: 36.7 ?C(Oral) HR: 77(Peripheral) RR: 16 BP: 131/99 SpO2: 98% HT: 165.1 cm WT: 77.1 kg BMI: 28.29 VITALS: I have reviewed the triage vital signs. GENERAL: Well developed, well appearing adult in no acute distress. NEURO: Alert and oriented. Moves all extremities. Face is symmetric and expressive. EYES: PERRL. No scleral icterus or conjunctival injection. No discharge. HENT: Normocephalic, atraumatic. Hearing is grossly intact. Nares grossly patent and without discharge. Mucous membranes moist. NECK: No JVD. Patient moves neck without restriction. GI/: Abdomen is soft and non-tender. Normoactive bowel sounds. Mild right flank tenderness. EXTREMITIES: Symmetric muscle bulk. No joint swelling. No clubbing, cyanosis, or deformity. SKIN: Warm and dry. Normal turgor. No rash or lesions appreciated. PSYCH: Mood, affect, and interaction is appropriate to the setting. Medical Decision Making 78-year-old female to the emergency department chief complaint of right-sided flank pain and hematuria. Vital stable, the patient is afebrile. Abdominal examination is benign. Will order a CT scan to evaluate for ureteral calculus. Toradol for discomfort. Basic labs, urinalysis ordered. Patient agrees with this plan. CT scan without acute findings. Urinalysis is positive. Lab work otherwise unremarkable. Discussed findings with the patient. Will treat with 5-day Keflex. She does have history of remote minor penicillin allergy, Keflex is appropriate. Findings ramon with the patient. She agrees with this plan. Return precautions were discussed. All questions were answered. The patient was discharged home. Assessment/Plan Acute lower UTI (urinary tract infection) (N39.0: Urinary tract infection, site not specified) Hematuria (R31.9: Hematuria, unspecified) Orders: cephalexin, 500 mg = 1 cap(s), Oral, q6hr, X 5 day(s), # 20 cap(s), Refills(s) 0, Pharmacy: [id number], 165.1, cm, 03/01/24 7:56:00 EDT, Height/Length Dosing, 77.1, kg, 03/01/24 7:56:00 EDT, Weight Dosing ketorolac, 15 mg = 1 mL, Injection, IV Push, Once, Stop date 03/01/24 8:02:00 EDT, STAT, Start date 03/01/24 8:02:00 EDT, 03/01/24 8:02:00 EDT Basic Metabolic Panel CBC w/ Auto Diff CT Abdomen/Pelvis w/o Contrast eGFR Extra Blue Tube Extra SST Tube UA with Cult Rflx Urine Culture Disposition Plan Patient Discharge Condition Stable Discharge Disposition Home Discharge Prescription List Prescriptions No active prescription medications Follow-up No qualifying data available Problem List/Past Medical History Ongoing Abnormal mammogram of both breasts Breast cancer screening by mammogram Chronic GERD Diabetes mellitus with hyperglycemia History of breast cancer in female Hyperlipidemia Hypertension Hypothyroidism Insomnia Low back pain Non-smoker Osteoporosis Overweight Refused influenza vaccine Type 2 diabetes mellitus with hyperlipidemia Vertigo Historical Breast cancer HTN (hypertension) Hypercholesteremia IFG (impaired fasting glucose) Thyroid disease Procedure/Surgical History Ankle fracture...., Appendectomy, Colonoscopy, Lumpectomy of breast, Ovarian cyst, Tubal ligation. Medications Inpatient ketorolac 15 mg/mL Inj, 15 mg= 1 mL, IV Push, Once Home amLODIPine 5 mg Tab, 5 mg= 1 tab(s), Oral, Daily, 3 refills cyclobenzaprine 10 mg Tab, 10 mg= 1 tab(s), Oral, TID, PRN gabapentin 100 mg Cap, 100 mg= 1 cap(s), Oral, TID hydrochlorothiazide-los leticia 25 mg-100 mg Tab, 1 tab(s), Oral, Daily, 3 refills levothyroxine 50 mcg (0.05 mg) Tab, 50 mcg= 1 tab(s), Oral, Daily, 3 refills omeprazole 40 mg Cap-DR, 40 mg= 1 cap(s), Oral, Daily, 3 refills simvastatin 40 mg Tab, 40 mg= 1 tab(s), Oral, Once a day (at bedtime), 3 refills Zofran ODT 4 mg Tab-Dis, 4 mg= 1 tab(s), Oral, q6hr, PRN Allergies Nalbuphine Hydrochloride (Intolerance) codeine (rash) penicillin Social History Alcohol - Denies (more content not included)... [facility] Comment on above: Result Comment: Elec tronically Signed By: Esteban Healy DO\.br\Date and Time Signed: 03/01/24 09:47 EDT ED Patient Education Noteon 03-01-2024 ED Patient Education Note Obstetrics and Gynecology Urinary Tract Infection, Adult A urinary tract infection (UTI) is an infection of any part of the urinary tract. The urinary tract includes the kidneys, ureters, bladder, and urethra. These organs make, store, and get rid of urine in the body. An upper UTI affects the ureters and kidneys. A lower UTI affects the bladder and urethra. What are the causes? Most urinary tract infections are caused by bacteria in your genital area around your urethra, where urine leaves your body. These bacteria grow and cause inflammation of your urinary tract. What increases the risk? You are more likely to develop this condition if: ? You have a urinary catheter that stays in place. ? You are not able to control when you urinate or have a bowel movement (incontinence). ? You are female and you: ? Use a spermicide or diaphragm for control. ? Have low estrogen levels. ? Are . ? You have certain genes that increase your risk. ? You are sexually active. ? You take antibiotic medicines. ? You have a condition that causes your flow of urine to slow down, such as: ? An enlarged prostate, if you are male. ? Blockage in your urethra. ? A kidney stone. ? A nerve condition that affects your bladder control (neurogenic bladder). ? Not getting enough to drink, or not urinating often. ? You have certain medical conditions, such as: ? Diabetes. ? A weak disease-fighting system (immunesystem). ? Sickle cell disease. ? Gout. ? Spinal cord injury. What are the signs or symptoms? Symptoms of this condition include: ? Needing to urinate right away (urgency). ? Frequent urination. This may include small amounts of urine each time you urinate. ? Pain or burning with urination. ? Blood in the urine. ? Urine that smells bad or unusual. ? Trouble urinating. ? Cloudy urine. ? Vaginal discharge, if you are female. ? Pain in the abdomen or the lower back. You may also have: ? Vomiting or a decreased appetite. ? Confusion. ? Irritability or tiredness. ? A fever or chills. ? Diarrhea. The first symptom in older adults may be confusion. In some cases, they may not have any symptoms until the infection has worsened. How is this diagnosed? This condition is diagnosed based on your medical history and a physical exam. You may also have other tests, including: ? Urine tests. ? Blood tests. ? Tests for STIs (sexually transmitted infections). If you have had more than one UTI, a cystoscopy or imaging studies may be done to determine the cause of the infections. How is this treated? Treatment for this condition includes: ? Antibiotic medicine. ? Coms-gqc-brqjvyg medicines to treat discomfort. ? Drinking enough water to stay hydrated. If you have frequent infections or have other conditions such as a kidney stone, you may need to see a health care provider who specializes in the urinary tract (urologist). In rare cases, urinary tract infections can cause sepsis. Sepsis is a life-threatening condition that occurs when the body responds to an infection. Sepsis is treated in the hospital with IV antibiotics, fluids, and other medicines. Follow these instructions at home: Medicines ? Take ywjv-saq-mcaiyqp and prescription medicines only as told by your health care provider. ? If you were prescribed an antibiotic medicine, take it as told by your health care provider. Do not stop using the antibiotic even if you start to feel better. General instructions ? Make sure you: ? Empty your bladder often and completely. Do not hold urine for long periods of time. ? Empty your bladder after sex. ? Wipe from front to back after urinating or having a bowel movement if you are female. Use each tissue only one time when you wipe. ? Drink enough fluid to keep your urine pale yellow. ? Keep all follow-up visits. This is important. Contact a health care provider if: ? Your symptoms do not get better after 1?2 days. ? Your symptoms go away and then return. Get help right away if: ? You have severe pain in your back or your lower abdomen. ? You have a fever or chills. ? You have nausea or vomiting. Summary ? A urinary tract infection (UTI) is an infection of any part of the urinary tract, which includes the kidneys, ureters, bladder, and urethra. ? Most urinary tract infections are caused by bacteria in your genital area. ? Treatment for this condition often includes antibiotic medicines. ? If you were prescribed an antibiotic medicine, take it as told by your health care provider. Do not stop using the antibiotic even if you start to feel better. ? Keep all follow-up visits. This is important. This information is not intended to replace advice given to you by your health care provider. Make sure you discuss any questions you have with your health care provider. Document Revised: 05/29/2021 Document Revie (more content not included)... [facility] ED Patient Summaryon 024 ED Patient Summary (Inserted Image. Jeannette ble to display) [place] [id number] Patient Discharge Instructions Person Information Name: BREONNA REAVESMAGDA Dillon Age: 78 Years Arrival Date: 03/01/2024 07:39:34 Discharge Diagnosis: Acute lower UTI (urinary tract infection); Hematuria Primary Care Physician: Ebonie Cash MD Provider Information Primary Provider: Esteban Healy DO Advanced [employer] Chief:Tamiko The exam and treatment you received in the Emergency Department were for an urgent problem and are not intended as complete care. It is important that you follow up with a doctor, nurse practitioner, or physician?s promotions assistant sales marketing for ongoing care. If your symptoms become worse or you do not improve as expected and you are unable to reach your usual health care provider, you should return to the Emergency Department. We are available 24 hours a day. KEY REAVES has been given the following list of patient education materials, prescriptions and follow-up instructions: Follow-up Instructions: With: Address: When: Ebonie Cash [address] [place], [place] [phone] Business (1) In 3 days 03/04/2024 Comments: Call the office of your primary care doctor to arrange for follow-up within the above-stated timeframe. Follow-up with your primary care doctor about this ED visit. You should review your labs, imaging, and diagnoses from this ED visit with your primary care physician. There are occasionally non-emergent findings that require additional follow-up after your ED visit. If you were prescribed medications you should discuss possible side-effects and drug interactions with your pharmacist. Call 911 or go to the nearest Emergency Department if you develop any new or worsening symptoms. Seek immediate medical attention if you develop: worsening abdominal pain, new or worsening nausea, new or worsening vomiting, new or worsening diarrhea, chest pain, shortness of breath, pain with urination, problems urinating, fever, chills, weakness, or any new or worsening symptoms. In the event that this physician does not participate in your insurance network, please consult with your insurance company to find a nearby participating provider. Patient Education Materials: Urinary Tract Infection, Adult A MESSAGE TO ALL PATIENTS REGARDING OPIOIDS PRESCRIPTION OPIOIDS: WHAT YOU NEED TO KNOW Prescription opioids can be used to help relieve yhgxntzp-ht-ygqegr pain and are often prescribed following a surgery or injury, or for certain health conditions. These medications can be an important part of the treatment but also come with serious risks. It is important to work with your healthcare provider to make sure you are getting the safest, most effective care. WHAT ARE THE RISKS AND SIDE EFFECTS OF OPIOID USE? Prescription opioids carry serious risks of addiction and overdose, especially with prolonged use. An opioid overdose, often marked by slowed breathing, can cause sudden . The use of prescription opioids can have a number of side effects as well, even when taken as directed: ? Tolerance?meaning you might need to take more of the medication for the same pain relief ? Physical dependence?meaning you have symptoms of withdrawal when a medication is stopped ? Increased sensitivity to pain ? Constipation ? Nausea, vomiting, and dry mouth ? Sleepiness and dizziness ? Confusion ? Depression ? Low levels of testosterone that can result in lower sex drive, energy, and strength ? Itching and sweating RISKS ARE GREATER WITH: ? History of drug misuse, substance use disorder, or overdose ? Mental health conditions (such as depression or anxiety) ? Sleep apnea ? Older age (65 years and older) ? Avoid alcohol while taking prescription opioids. Also, unless specifically advised by your health care provider, medications to avoid include: ? Benzodiazepines (such as Xanax or Valium) ? Muscle relaxants (such as Soma or Flexeril) ? Hypnotics (such as Ambien or Lunesta) ? Other prescription opioids KNOW YOUR OPTIONS Talk to your health care provider about ways to manage your pain that don?t involve prescription opioids. Some of these options may actually work better and have fewer risks and side effects. Options may include: ? Pain relievers such as acetaminophen, ibuprofen, and naproxen ? Some medication that are also used for depression or seizures ? Physical therapy and exercise ? Cognitive behavioral therapy, a psychological, goal-directed approach, in which patients learn how to modify physical, behavioral, and emotional triggers of pain and stress. IF YOU ARE PRESCRIBED OPIOIDS FOR PAIN: ? Never take opioids in greater amounts or more often than prescribed. ? Follow up with your primary health care provider. o Work together to create a plan on how to manage your pain. o Talk about ways to help (more content not included)... Normal [facility] HEMATOLOGYOrdered By: SYSTEM SYSTEM on 03-01-2024 Basophils/100 WBC (Bld) 0.9 % Normal 0.0 - 2.0 % [facility] Basophils/Leukocytes Auto (Bld) [Pure # fraction] 0.1 E9/L Normal 0.0 - 0.2 E9/L [facility] Eosinophils (Bld) [#/Vol] 0.2 E9/L Normal 0.0 - 0.5 E9/L [facility] Eosinophils/100 WBC (Bld) 1.5 % Normal 0.0 - 8.0 % [facility] Erythrocyte distribution width (RBC) [Ratio] 13.0 % Normal 10.9 - 14.2 % [facility] Hematocrit (Bld) [Volume fraction] 43.3 % Normal 34.0 - 46.0 % [facility] Hemoglobin (Bld) [Mass/Vol] 14.5 g/dL Normal 12.0 - 16.0 gm/dL [facility] Lymphocytes (Bld) [#/Vol] 2.2 E9/L Normal 1.0 - 4.0 E9/L [facility] Lymphocytes/100 WBC (Bld) 20.3 % Normal 14.0 - 50.0 % [facility] MCH (RBC) [Entitic mass] 32.0 pg Normal 27.0 - 34.0 pg [facility] MCHC (RBC) [Mass/Vol] 33.5 g/dL Normal 31.4 - 36.0 gm/dL [facility] MCV (RBC) [Entitic vol] 95.7 fL Normal 80.0 - 100.0 fL [facility] Monocytes (Bld) [#/Vol] 0.7 E9/L Normal 0.2 - 1.0 E9/L [facility] Monocytes/100 WBC (Bld) 6.9 % Normal 4.0 - 14.0 % [facility] Neutrophils (Bld) [#/Vol] 7.7 E9/L High 2.0 - 7.5 E9/L [facility] Neutrophils/100 WBC (Bld) 70.4 % Normal 36.0 - 75.0 % [facility] Platelet 286.0 E9/L Normal 150.0 - 500.0 E9/L [facility] Platelet mean volume (Bld) [Entitic vol] 9.0 fL Normal 6.4 - 10.8 fL [facility] RBC (Bld) [#/Vol] 4.5 E12/L Normal 4.3 - 5.9 E12/L [facility] WBC corrected for nucl RBC Auto (Bld) [#/Vol] 10.9 E9/L Normal 4.0 - 11.0 E9/L [facility] UA with Cult Rflxon 03-01-20 24 Bacteria Auto Ql (U) 1+ [id number] Abnormal Trace [facility] Comment on above: Performed By: #### 4 [id number] ####[place] [address] [place] [id number] Bilirubin Ql (U) Negative Normal Negative [facility] Comment on above: Performed By: #### 4 [id number] ####[address] [place] [place] [address] Clarity (U) Clear Normal Clear [facility] Comment on above: Performed By: #### 4 [id number], [id number] ####[place] [place] [address] Color (U) Light-Yellow Normal Yellow [facility] Comment on above: Result Comment: Micr oscopic readings are only performed on those samples that meet specific criteria set forth by [facility]. Performed By: #### 4 [id number] ####[facility] [address] [place] [address] Epithelial cells.squamous Auto (Urine sed) [#/Area] 3-4 Abnormal 0-2 [facility] Comment on above: Performed By: #### 4 [id number], [id number] ####[facility] [address] [place] [address] Glucose Ql (U) Negative Normal Negative [facility] Comment on above: Performed By: #### 4 [id number] ####[facility] [address] [place] [address] Hemoglobin Auto test strip (U) [Mass/Vol] Trace Abnormal Negative [facility] Comment on above: Performed By: #### 4 [id number], [id number] ####[address] [address] Ketones Auto test strip Ql (U) Negative Normal Negative [facility] Comment on above: Performed By: #### 4 [id number], [id number] ####[facility] [address] [place] [address] Leukocyte esterase Auto test strip Ql (U) 250 Kristie/uL Abnormal Negative [facility] Comment on above: Performed By: #### 4 [id number], [id number] ####[facility] [address] [place] [address], [place] [address] Mucus Auto Ql (U) Negative Normal Negative [facility] Comment on above: Performed By: #### 4 [id number], [id number] ####[facility] [address] [place] [address] Nitrite Auto test strip Ql (U) Negative Normal Negative [facility] Comment on above: Performed By: #### 4 [id number], [id number] ####[address] [address] pH (U) 5.5 [pH] Invalid Interpretation Code 5.0-9.0 [facility] Comment on above: Performed By: #### 4 [id number] ####[place] [address] Protein Ql (U) Negative Normal Negative [facility] Comment on above: Performed By: #### 4 [id number], [id number] ####[place] [id number] RBC Ql (U) 0-3 Normal 0-3 [facility] Comment on above: Performed By: #### 4 [id number], [id number] ####[place] [id number] Specific gravity (U) [Rel density] 1.008 Invalid Interpretation Code 1.005-1.030 [facility] Comment on above: Performed By: #### 4 [id number], [id number] ####[place] [address] Urobilinogen (U) [Mass/Vol] Negative Normal Negative [facility] Comment on above: Performed By: #### 4 [id number], [id number] ####[place] [id number] WBC Auto (Urine sed) [#/Area] 6-15 Abnormal 0-5 [facility] Comment on above: Performed By: #### 4 [id number], [id number] ####[place] [address] Type of Urine collection method Clean Catch Normal [facility] Comment on above: Performed By: #### 4 [id number], [id number] ####[place] [id number] URINALYSISOrdered By: SYSTEM SYSTEM on 03-01-2024 Bacteria Auto Ql (U) 1+ graded/HPF Invalid Interpretation Code Tracegraded /HPF [facility] UA Auto SS Bilirubin Ql (U) Negative Normal Negativemg/ dL [facility] UA Auto SS Clarity (U) Clear (03/01/24 9:11 AM) Normal Clear [facility] UA Auto SS Color (U) Light-Yellow 1 (03/01/24 9:11 AM) Normal Yellow [facility] Auto SS Comment on above: Interpretive Data: M icroscopic readings are only performed on those samples that meet specific criteria set forth by [facility]. Epithelial cells.squamous Auto (Urine sed) [#/Area] 3-4 graded/HPF Invalid Interpretation Code 0-2graded/H PF [facility]A Auto SS Glucose Ql (U) Negative Normal Negativemg/ dL [facility] Auto SS Hemoglobin Auto test strip (U) [Mass/Vol] Trace mg/dL Invalid Interpretation Code Negativemg/ dL [facility] Auto SS Ketones Auto test strip Ql (U) Negative Normal Negativemg/ dL [facility] Auto SS Leukocyte esterase Auto test strip Ql (U) 250 Kristie/uL Kristie/uL Invalid Interpretation Code NegativeLeu /uL [facility]A Auto SS Mucus Auto Ql (U) Negative Normal Negativegr a ded/LPF [facility] Auto SS Nitrite Auto test strip Ql (U) Negative Normal Negativemg/ dL [facility] UA Auto SS pH (U) 5.5 *NA* (03/01/24 9:11 AM) Invalid Interpretation Code 5.0 - 9.0 [facility] UA Auto SS Protein Ql (U) Negative Normal Negativemg/ dL [facility] Auto SS RBC Ql (U) 0-3 graded/HPF Normal 0-3graded/H PF [facility]A Auto SS Specific gravity (U) [Rel density] 1.008 *NA* (03/01/24 9:11 AM) Invalid Interpretation Code 1.005 - 1.030 [facility] UA Auto SS Urobilinogen (U) [Mass/Vol] Negative Normal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 Gudimella [facility] Start: 07-19-2022 End: 07-19-2022 Patient encounter procedure David Gudimella [facility] Start: 06-05-2017 End: 06-05-2017 Ambulatory GRACY TREVIZO Facility:[facility] Start: 06-05-2017 Emergency department visit high/urgent severity GRACY TREVIZO [facility] Start: 06-04-2017 End: 06-05-2017 Emergency department patient visit Ramirez Rasmussen Facility:[facility] Procedures Date Procedure Procedure Detail Performing Clinician Start: 03-08-2024 Computed tomography of abdomen and pelvis with contrast Start: 03-08-2024 US scan of gallbladder Appendectomy David Gudimella Colonoscopy David Gudimella Comment on above: 2014 Cyst of ovary (disorder) Pre et Gudimella Fracture of ankle (disorder) David Gudimella Ligation of fallopian tube P reet Gudimella Lumpectomy of breast David G udimella Plan of Treatment Date Care Activity Detail Author Patient Education Hiatal Hernia (DC) Nonalcoholic Fatty Liver Disease (DC) [facility] Work Phone: Patient referral [facility] Work Phone: Immunizations Immunization Date Immunization Notes Care Provider Curt jaramillo 01-03-2017 pneumococcal conjuga te vaccine, 13 valent Ebonie Gudimella [facility] NEGATED: Highlighted row has not occurred!01-14-2023 influenza virus vaccine, unspecified formulation Ebonie Gudimella [facility] NEGATED: Highlighted row has not occurred!07-19-2022 influenza virus vaccine, unspecified formulation David Gudimella [facility] NEGATED: Highlighted row has not occurred!12-21-2021 influenza virus vaccine, unspecified formulation David Gudimella [facility] NEGATED: Highlighted row has not occurred!12-21-2021 SARS-CoV-2 (COVID-19) Ad26 vaccine, recombinant David Gudimella [facility] NEGATED: Highlighted row has not occurred!12-29-2020 influenza virus vaccine, unspecified formulation David Steffmella [facility] NEGATED: Highlighted row has not occurred!12-03-2019 influenza virus vaccine, live, attenuated, for intranasal use David Steffmelmaddison [facility] Payers Date Payer Category Payer Self-pay 2023 Medicare [id number] 2017 Medicare 1945 Unknown [id number] 2.16.8 [id number] 1945 Unknown [id number] 2.16.8 [id number] 1945 Unknown [id number] 2.16.8 [id number] 1945 Unknown [id number] 2.16.8 [id number] 1945 Unknown [id number] 2.16.84 [id number] 1945 Unknown [id number] 2.16.84 [id number] 1945 Unknown [id number] 2.16.84 [id number] 1945 Unknown [id number] 2.16.84 [id number] 1945 Unknown [id number] 2.16.84 [id number] 1945 Unknown [id number] 2.16.84 [id number] Medicare [id number] Unknown [employer] [id number] Unknown [id number] 2.16.8 [id number] Social History Date Type Detail Facility Start: 12-21-2021 End: 03-08-2024 Tobacco smoking status Never smoked tobacco (finding) [facility] Tobacco smoking status Never [facility] Sex Assigned At Female [facility] Start: 1945 Sex Assigned At Female [facility] Functional Status Date Assessment Result Facility 03-07-2024 Functional Status N/A [facility] 03-03-2024 Functional Status N/A [facility] 03-01-2024 Functional Status N/A [facility] 03-12-2023 Functional Status N/A [facility] 03-06-2023 Functional Status N/A [facility] 02-04-2023 Functional Status N/A [facility] 01-14-2023 Functional Status N/A [facility] 07-19-2022 Functional Status N/A [facility] Clinical Notes 07-19-2022 to 03-03-2024 Note Date & Type Note Facility 03-03-2024 Hospital Discharg e instructions Patient Education 03/03/2024 19:39:22 Biliary Colic, Adult Biliary Colic, Adult Biliary colic is severe pain caused by a problem with the gallbladder. The gallbladder is a small organ in the upper right part of the abdomen. The gallbladder stores a digestive fluid produced in the liver (bile) that helps the body break down fat. Bile and other digestive enzymes are carried from the liver to the small intestine through tube-like structures called bile ducts. The gallbladder and the bile ducts form the biliary tract. Sometimes, hard deposits of digestive fluids (gallstones) form in the gallbladder and block the flow of bile from the gallbladder, causing biliary colic. This condition is also called a gallbladder attack. Gallstones can be as small as a grain of sand or as big as a golf ball. There could be just one gallstone in the gallbladder, or there could be many. What are the causes? This condition is usually caused by gallstones. Less often, a tumor could block the flow of bile from the gallbladder and trigger biliary colic. What increases the risk? The following factors may make you more likely to develop this condition: Being female. Having a family history of gallstones. Being obese. Losing weight suddenly or quickly. Eating a diet that is high in calories, low in fiber, and rich in refined carbohydrates, such as white bread and white rice. Having certain health conditions, such as: ?An intestinal disease that affects nutrient absorption, such as Crohn's disease. ?A metabolic condition, such as diabetes or metabolic syndrome. Metabolic syndrome occurs when someone has high blood pressure, high cholesterol, and diabetes. ?A blood condition, such as hemolytic anemia or sickle cell disease. What are the signs or symptoms? The main symptom of this condition is severe pain in the upper right side of the abdomen. You may feel this pain below the chest but above the hip. This pain often occurs at night or after eating a meal that is high in fat. This pain may get worse for up to an hour and last as long as 12 hours. In most cases, the pain fades (subsides) within 2 hours. Other symptoms of this condition include: Nausea and vomiting. Pain under the right shoulder. How is this diagnosed? This condition is diagnosed based on your medical history, your symptoms, and a physical exam. You may also have tests, including: Blood tests to rule out infection or inflammation of the bile ducts, gallbladder, pancreas, or liver. Imaging studies, such as: ?An ultrasound. ?A CT scan. ?An MRI. In some cases, you may need to have an imaging study done using a small amount of radioactive material (nuclear medicine) to confirm the diagnosis. How is this treated? This condition may be treated with medicines to: Relieve your pain or nausea. Dissolve the gallstones. It may take months or years before the gallstones are completely gone. If you have gallstones, or if you have a tumor in the gallbladder that is causing biliary colic, you may need surgery to remove the gallbladder (cholecystectomy). Follow these instructions at home: Eating and drinking Drink enough fluid to keep your urine pale yellow. Follow instructions from your health care provider about eating or drinking restrictions. These may include avoiding: ?Fatty, greasy, and fried foods. ?Any foods that make the pain worse. ?Overeating. ?Having a large meal after not eating for a while. General instructions Take [id number] and prescription medicines only as told by your health care provider. Keep all follow-up visits as told by your health care provider. This is important. How is this prevented? Steps to prevent this condition include: Maintaining a healthy body weight. Getting regular exercise. Eating a healthy diet that is high in fiber and low in fat. Limiting how much sugar and refined carbohydrates you eat. Contact a health care provider if: Your pain lasts more than 5 hours. You vomit. You have a fever and chills. Your pain gets worse. Get help right away if: Your skin or the whites of your eyes look yellow (jaundice). Your have tea-colored urine and light-colored stools (feces). You are dizzy or you faint. Summary Biliary colic is severe pain caused by a problem with the gallbladder. The gallbladder is a small organ in the upper right part of your abdomen. Treatment for this condition may include medicine to relieve your pain or nausea, or medicine to slowly dissolve the gallstones. If you have gallstones, or if you have a tumor in the gallbladder that is causing biliary colic, you may need surgery to remove the gallbladder (cholecystectomy). This information is not intended to replace advice given to you by your health care provider. Make sure you discuss any questions you have with your health care provider. Document Revised: 10/28/2020 Document Reviewed: 08/19/2020 [employer] Patient Education 2022 [employer]. 03/03/2024 19:39:22 Gallbladder Eating Plan Gallbladder Eating Plan High blood cholesterol, obesity, a sedentary lifestyle, an unhealthy diet, and diabetes are risk factors for developing gallstones. If you have a gallbladder condition, you may have trouble digesting fats and tolerating high fat intake. Eating a low-fat diet can help reduce your symptoms and may be helpful before and after having surgery to remove your gallbladder (cholecystectomy). Your health care provider may recommend that you work with a dietitian to help you reduce the amount of fat in your diet. What are tips for following this plan? General guidelines Limit your fat intake to less than 30% of your total daily calories. If you eat around 1,800 calories each day, this means eating less than 60 grams (g) of fat per day. Fat is an important part of a healthy diet. Eating a low-fat diet can make it hard to maintain a healthy body weight. Ask your dietitian how much fat, calories, and other nutrients you need each day. Eat small, frequent meals throughout the day instead of three large meals. Drink at least 8 10 cups (1.9 2.4 L) of fluid a day. Drink enough fluid to keep your urine pale yellow. If you drink alcohol: ?Limit how much you have to: ?0 1 drink a day for women who are not . ?0 2 drinks a day for men. ?Know how much alcohol is in a drink. In the [place] one drink equals one 12 oz bottle of beer (355 mL), one 5 oz glass of wine (148 mL), or one 1 oz glass of hard liquor (44 mL). Reading food labels Check nutrition facts on food labels for the amount of fat per serving. Choose foods with less than 3 grams of fat per serving. Shopping Choose nonfat and low-fat healthy foods. Look for the words nonfat, low-fat, or fat-free. Avoid buying processed or prepackaged foods. Cooking Cook using low-fat methods, such as baking, broiling, grilling, or boiling. Cook with small amounts of healthy fats, such as olive oil, grapeseed oil, canola oil, avocado oil, or sunflower oil. What foods are recommended? All fresh, frozen, or canned fruits and vegetables. Whole grains. Low-fat or nonfat (skim) milk and yogurt. Lean meat, skinless poultry, fish, eggs, and beans. Low-fat protein supplement powders or drinks. Spices and herbs. The items listed above may not be a complete list of foods and beverages you can eat and drink. Contact a dietitian for more information. What foods are not recommended? High-fat foods. These include baked goods, fast food, fatty cuts of meat, ice cream, comoran toast, sweet rolls, pizza, cheese bread, foods covered with butter, creamy sauces, or cheese. Fried foods. These include comoran fries, tempura, battered fish, breaded chicken, fried breads, and sweets. Foods that cause bloating and gas. The items listed above may not be a complete list of foods that you should avoid. Contact a dietitian for more information. Summary A low-fat diet can be helpful if you have a gallbladder condition, or before and after gallbladder surgery. Limit your fat intake to less than 30% of your total daily calories. This is about 60 g of fat if you eat 1,800 calories each day. Eat small, frequent meals throughout the day instead of three large meals. This information is not intended to replace advice given to you by your health care provider. Make sure you discuss any questions you have with your health care provider. Document Revised: 10/01/2022 Document Reviewed: 10/01/2022 [employer] Patient Education 2022 [employer]. 03/03/2024 19:39:22 Gastrointestinal Bleeding Gastrointestinal Bleeding Gastrointestinal (GI) bleeding is bleeding somewhere along the digestive tract, between the mouth and the anus. The digestive tract includes the mouth, esophagus, stomach, small intestine, large intestine, and anus. The large intestine is often called the colon. GI bleeding can be caused by various problems. The severity of these problems can be mild, serious, or life-threatening. If you have GI bleeding, you may find blood in your stools (feces), you may have black stools, or you may vomit blood. You may need to stay in the hospital if there is a lot of bleeding. What are the causes? This condition may be caused by: Inflammation, irritation, or swelling of the esophagus (esophagitis). The esophagus is part of the body that moves food from your mouth to your stomach. Swollen veins in the rectum (hemorrhoids). Tears in the anus (anal fissures). The tears are often caused by passing hard stool. Pouches that form on the colon and may bleed (diverticulosis). Inflammation in areas with diverticulosis. This is called diverticulitis.This can cause pain, fever, and bloody stools. Growths (polyps) or cancer. Colon cancer often starts out as precancerous polyps. Gastritis and ulcers. These may cause bleeding in the upper GI tract, near the stomach. What increases the risk? You are more likely to develop this condition if: You have an infection in your stomach from a type of bacteria called Helicobacter pylori. You take certain medicines, such as: ?NSAIDs. ?Aspirin. ?Selective serotonin reuptake inhibitors (SSRIs). ?Steroids. ?Antiplatelet or anticoagulant medicines. You smoke. You drink alcohol. What are the signs or symptoms? Common symptoms of this condition include: Bright red blood in your vomit, or vomit that looks like coffee grounds. Bloody, black, or tarry stools. ?Bleeding from the lower GI tract will usually cause red or maroon blood in the stools. ?Bleeding from the upper GI tract may cause black, tarry stools that are often stronger smelling than usual. ?In certain cases, if the bleeding is fast enough, the stools may be red. Pain or cramping in the abdomen. How is this diagnosed? This condition may be diagnosed based on: Your medical history and a physical exam. Various tests, such as: ?Blood tests. ?Stool tests. ?X-rays and other imaging tests. ?Esophagogastroduodenoscopy (EGD). In this test, a flexible, lighted tube is used to look at your esophagus, stomach, and small intestine. ?Colonoscopy. In this test, a flexible, lighted tube is used to look at your colon. How is this treated? Treatment for this condition depends on the cause of the bleeding. For example: For bleeding from the esophagus, stomach, small intestine, or colon, the health care provider may do a procedure to stop bleeding during your EGD or colonoscopy. Inflammation or infection of the colon can be treated with medicines. Certain rectal problems can be treated with creams, suppositories, or warm baths. Medicines may be given to reduce acid in your stomach. Surgery is sometimes done. Blood transfusions are sometimes needed if a lot of blood has been lost. If there is a lot of bleeding, you will need to stay in the hospital for observation. If bleeding is mild, you may be allowed to go home. Follow these instructions at home: Take vivz-okc-gzgzpkz and prescription medicines only as told by your health care provider. Eat foods that are high in fiber, such as beans, whole grains, and fresh fruits and vegetables. This will help to keep your stools soft. Eating 1 3 prunes each day works well for many people. Drink enough fluid to keep your urine pale yellow. Keep all follow-up visits. This is important. Contact a health care provider if: Your symptoms do not improve with treatment. Get help right away if: Your bleeding does not stop. You feel light-headed or you faint. You feel weak. You have severe cramps in your back or abdomen. You pass large blood clots in your stool. Your symptoms are getting worse. You have chest pain or fast heartbeats. These symptoms may be an emergency. Get help right away. Call 911. Do not wait to see if the symptoms will go away. Do not drive yourself to the hospital. Summary Gastrointestinal (GI) bleeding is bleeding somewhere along the digestive tract, between the mouth and anus. GI bleeding can be caused by various problems. Treatment for this condition depends on the cause of the bleeding. Take liuv-jgz-zfsnhjm and prescription medicines only as told by your health care provider. Get help right away if your bleeding increases, your symptoms are getting worse, or you have new symptoms. Keep all follow-up visits. This is important. This information is not intended to replace advice given to you by your health care provider. Make sure you discuss any questions you have with your health care provider. Document Revised: 05/21/2022 Document Reviewed: 05/21/2022 [employer] Patient Education 2022 [employer]. 03/03/2024 19:39:22 Abdominal Pain, Adult Abdominal Pain, Adult Pain in the abdomen (abdominal pain) can be caused by many things. Often, abdominal pain is not serious and it gets better with no treatment or by being treated at home. However, sometimes abdominal pain is serious. Your health care provider will ask questions about your medical history and do a physical exam to try to determine the cause of your abdominal pain. Follow these instructions at home: Medicines Take abvb-wil-jpxyvtn and prescription medicines only as told by your health care provider. Do not take a laxative unless told by your health care provider. General instructions Watch your condition for any changes. Drink enough fluid to keep your urine pale yellow. Keep all follow-up visits as told by your health care provider. This is important. Contact a health care provider if: Your abdominal pain changes or gets worse. You are not hungry or you lose weight without trying. You are constipated or have diarrhea for more than 2 3 days. You have pain when you urinate or have a bowel movement. Your abdominal pain wakes you up at night. Your pain gets worse with meals, after eating, or with certain foods. You are vomiting and cannot keep anything down. You have a fever. You have blood in your urine. Get help right away if: Your pain does not go away as soon as your health care provider told you to expect. You cannot stop vomiting. Your pain is only in areas of the abdomen, such as the right side or the left lower portion of the abdomen. Pain on the right side could be caused by appendicitis. You have bloody or black stools, or stools that look like tar. You have severe pain, cramping, or bloating in your abdomen. You have signs of dehydration, such as: ?Dark urine, very little urine, or no urine. ?Cracked lips. ?Dry mouth. ?Sunken eyes. ?Sleepiness. ?Weakness. You have trouble breathing or chest pain. Summary Often, abdominal pain is not serious and it gets better with no treatment or by being treated at home. However, sometimes abdominal pain is serious. Watch your condition for any changes. Take zvfx-hmk-wfxlnei and prescription medicines only as told by your health care provider. Contact a health care provider if your abdominal pain changes or gets worse. Get help right away if you have severe pain, cramping, or bloating in your abdomen. This information is not intended to replace advice given to you by your health care provider. Make sure you discuss any questions you have with your health care provider. Document Revised: 12/05/2020 Document Reviewed: 02/25/2020 [employer] Patient Education 2022 [employer] Follow Up Care 03/03/2024 13:58:42 With:Osman Ortiz Address: [address] [place] [address], [facility] [address] [phone] [phone] Business (1) When:03/06/2024 19:16:17 With:Ebonie Cash Address: [address] [place] [address]- [phone] Business (1) When:Within 3 Day(s) [facility] 03-03-2024 Evaluation + Plan note Extrac von from: Title:ED Note Author:Salinas Villalobos DO Date:03/03 Abdominal pain (R10.9: Unspe cified abdominal pain) Ordered: oxycodone, 5 mg = 1 tab(s), Oral, q6hr, X 3 day(s), # 10 tab(s), Refills(s) 0, Pharmacy: [id number], 165.1, cm, 03/03/24 14:10:00 EDT, Height/Length Dosing, 79.8, kg, 03/03/24 14:10:00 EDT, Weight Dosing oxycodone, 1 EA, Tab, Oral, Once, Stop date 03/03/24 19:15:00 EDT, STAT, Start date 03/03/24 19:15:00 EDT Abnormal liver enzymes (R74.8: Abnormal levels of other serum enzymes) GI bleed (K92.2: Gastrointestinal hemorrhage, unspecified) Orders: HYDROmorphone, 0.5 mg = 0.5 mL, Injection, IV Push, Once, Stop date 03/03/24 17:45:00 EDT, STAT, Start date 03/03/24 17:45:00 EDT, 03/03/24 17:45:00 EDT morphine, 4 mg = 1 mL, Injection, IV Push, Once, Stop date 03/03/24 14:14:00 EDT, STAT, Start date 03/03/24 14:14:00 EDT, 03/03/24 14:14:00 EDT ondansetron, 4 mg = 2 mL, Injection, IV Push, Once, Stop date 03/03/24 14:14:00 EDT, STAT, Start date 03/03/24 14:14:00 EDT, 03/03/24 14:14:00 EDT ondansetron, 4 mg = 2 mL, Injection, IV Push, Once, Stop date 03/03/24 17:45:00 EDT, STAT, Start date 03/03/24 17:45:00 EDT, 03/03/24 17:45:00 EDT ondansetron, 4 mg = 1 tab(s), Oral, q6hr, X 3 day(s), # 10 tab(s), Refills(s) 0, Pharmacy: [id number], 165.1, cm, 03/03/24 14:10:00 EDT, Height/Length Dosing, 79.8, kg, 03/03/24 14:10:00 EDT, Weight Dosing pantoprazole, 40 mg = 10 mL, Injection, IV Push, Once, Stop date 03/03/24 17:45:00 EDT, STAT, Start date 03/03/24 17:45:00 EDT, 03/03/24 17:45:00 EDT Sodium Chloride 0.9% intravenous solution, 1,000 mL, Soln-IV, IV, Once, Stop date 03/03/24 14:14:00 EDT, STAT, Start date 03/03/24 14:14:00 EDT, Infuse over 61, minute(s) Basic Metabolic Panel BB Draw & Hold CBC w/ Auto Diff CT Abdomen/Pelvis w/ Contrast ECG 12 Lead Adult eGFR Extra Green Li Tube Extra SST Tube Hepatic Function Panel Lactic Acid Lactic Acid Lipase Level PT & PTT UA with Cult Rflx Future Appointments Appointment Date:03/07/2024 01:00:00 PM Scheduled Provider:Ebonie Cash MD Location:[facility] Appointment Type:[facility]05-02-2024 Evaluation + Plan noteExtracted from: Title:ED Note Author:Esteban Healy DO Date: Acute lower UTI (urinary tra ct infection) (N39.0: Urinary tract infection, site not specified) Hematuria (R31.9: Hematuria, unspecified) Orders: cephalexin, 500 mg = 1 cap(s), Oral, q6hr, X 5 day(s), # 20 cap(s), Refills(s) 0, Pharmacy: [id number], 165.1, cm, 03/01/24 7:56:00 EDT, Height/Length Dosing, 77.1, kg, 03/01/24 7:56:00 EDT, Weight Dosing ketorolac, 15 mg = 1 mL, Injection, IV Push, Once, Stop date 03/01/24 8:02:00 EDT, STAT, Start date 03/01/24 8:02:00 EDT, 03/01/24 8:02:00 EDT Basic Metabolic Panel CBC w/ Auto Diff CT Abdomen/Pelvis w/o Contrast eGFR Extra Blue Tube Extra SST Tube UA with Cult Rflx Urine Culture Future Appointments Appointment Date:03/07/2024 01:00:00 PM Scheduled Provider:Ebonie Cash MD Location:[facility] Appointment Type: Open Diagnostic Tests Pending * Urine Culture 03/01/24 [facility]05-02-2024 Hospital Discharge instructions Patient Education 03/01/2024 09:41:57 Urinary Tract Infection, Adult Urinary Tract Infection, Adult A urinary tract infection (UTI) is an infection of any part of the urinary tract. The urinary tractincludes the kidneys, ureters, bladder, and urethra. These organs make, store, and get rid of urinein the body. An upper UTI affects the ureters and kidneys. A lower UTI affects the bladder and urethra. What are the causes? Most urinary tract infections are caused by bacteria in your genital area around your urethra, where urine leaves your body. These bacteria grow and cause inflammation of your urinary tract. What increases the risk? You are more likely to develop this condition if: You have a urinary catheter that stays in place. You are not able to control when you urinate or have a bowel movement (incontinence). You are female and you: ?Use a spermicide or diaphragm for control. ?Have low estrogen levels. ?Are . You have certain genes that increase your risk. You are sexually active. You take antibiotic medicines. You have a condition that causes your flow of urine to slow down, such as: ?An enlarged prostate, if you are male. ?Blockage in your urethra. ?A kidney stone. ?A nerve condition that affects your bladder control (neurogenic bladder). ?Not getting enough to drink, or not urinating often. You have certain medical conditions, such as: ?Diabetes. ?A weak disease-fighting system (immunesystem). ?Sickle cell disease. ?Gout. ?Spinal cord injury. What are the signs or symptoms? Symptoms of this condition include: Needing to urinate right away (urgency). Frequent urination. This may include small amounts of urine each time you urinate. Pain or burning with urination. Blood in the urine. Urine that smells bad or unusual. Trouble urinating. Cloudy urine. Vaginal discharge, if you are female. Pain in the abdomen or the lower back. You may also have: Vomiting or a decreased appetite. Confusion. Irritability or tiredness. A fever or chills. Diarrhea. The first symptom in older adults may be confusion. In some cases, they may not have any symptoms until the infection has worsened. How is this diagnosed? This condition is diagnosed based on your medical history and a physical exam. You may also have other tests, including: Urine tests. Blood tests. Tests for STIs (sexually transmitted infections). If you have had more than one UTI, a cystoscopy or imaging studies may be done to determine the cause of the infections. How is this treated? Treatment for this condition includes: Antibiotic medicine. Iwzk-drb-xyhjfea medicines to treat discomfort. Drinking enough water to stay hydrated. If you have frequent infections or have other conditions such as a kidney stone, you may need to see a health care provider who specializes in the urinary tract (urologist). In rare cases, urinary tract infections can cause sepsis. Sepsis is a life- threatening condition that occurs when the body responds to an infection. Sepsis is treated in the hospital with IV antibiotics, fluids, and other medicines. Follow these instructions at home: Medicines Take ysxo-yyq-nmuvxeg and prescription medicines only as told by your health care provider. If you were prescribed an antibiotic medicine, take it as told by your health care provider. Do notstop using the antibiotic even if you start to feel better. General instructions Make sure you: ?Empty your bladder often and completely. Do not hold urine for long periods of time. ?Empty your bladder after sex. ?Wipe from front to back after urinating or having a bowel movement if you are female. Use each tissue only one time when you wipe. Drink enough fluid to keep your urine pale yellow. Keep all follow-up visits. This is important. Contact a health care provider if: Your symptoms do not get better after 1 2 days. Your symptoms go away and then return. Get help right away if: You have severe pain in your back or your lower abdomen. You have a fever or chills. You have nausea or vomiting. Summary A urinary tract infection (UTI) is an infection of any part of the urinary tract, which includes the kidneys, ureters, bladder, and urethra. Most urinary tract infections are caused by bacteria in your genital area. Treatment for this condition often includes antibiotic medicines. If you were prescribed an antibiotic medicine, take it as told by your health care provider. Do notstop using the antibiotic even if you start to feel better. Keep all follow-up visits. This is important. This information is not intended to replace advice given to you by your health care provider. Make sure you discuss any questions you have with your health care provider. Document Revised: 05/29/2021 Document Reviewed: 05/29/2021 [employer] Patient Education 2022 [employer]. Follow Up Care 03/01/2024 07:41:05 With:Ebonie Cash Address: [address] [place] [phone] Business (1) When:03/04/2024 09:40:41 Comments:Call the office of your primary care doctor to arrange for follow-up within the above-stated timeframe. Follow-up with your primary care doctor about this ED visit. You should review your labs, imaging, and diagnoses from this ED visit with your primary care physician. There are occasionally non-emergent findings that require additional follow-up after your ED visit. If you were prescribed medications you should discuss possible side-effects and drug interactions with your pharmacist. Call 911 or go to the nearest Emergency Department if you develop any new or worsening symptoms.Seek immediate medical attention if you develop:worsening abdominal pain, new or worsening nausea, new or worsening vomiting, new or worsening diarrhea, chest pain, shortness of breath, pain with urination, problems urinating, fever, chills, weakness, or any new or worsening symptoms. [facility]05-15-2023 Hospital Discharge instructions Patient Education 03/14/2023 15:35:14 Sciatica Sciatica Sciatica is pain, numbness, weakness, or tingling along the path of the sciatic nerve. The sciatic nerve starts in the lower back and runs down the back of each leg. The nerve controls the muscles inthe lower leg and in the back of the knee. It also provides feeling (sensation) to the back of the thigh, the lower leg, and the sole of the foot. Sciatica is a symptom of another medical condition that pinches or puts pressure on the sciatic nerve. Sciatica most often only affects one side of the body. Sciatica usually goes away on its own or with treatment. In some cases, sciatica may come back (recur). What are the causes? This condition is caused by pressure on the sciatic nerve or pinching of the nerve. This may be theresult of: A disk in between the bones of the spine bulging out too far (herniated disk). Age-related changes in the spinal disks. A pain disorder that affects a muscle in the buttock. Extra bone growth near the sciatic nerve. A break (fracture) of the pelvis. . Tumor. This is rare. What increases the risk? The following factors may make you more likely to develop this condition: Playing sports that place pressure or stress on the spine. Having poor strength and flexibility. A history of back injury or surgery. Sitting for long periods of time. Doing activities that involve repetitive bending or lifting. Obesity. What are the signs or symptoms? Symptoms can vary from mild to very severe, and they may include: Any of these problems in the lower back, leg, hip, or buttock: ?Mild tingling, numbness, or dull aches. ?Burning sensations. ?Sharp pains. Numbness in the back of the calf or the sole of the foot. Leg weakness. Severe back pain that makes movement difficult. Symptoms may get worse when you cough, sneeze, or laugh, or when you sit or stand for long periods of time. How is this diagnosed? This condition may be diagnosed based on: Your symptoms and medical history. A physical exam. Blood tests. Imaging tests, such as: ?X-rays. ?MRI. ?CT scan. How is this treated? In many cases, this condition improves on its own without treatment. However, treatment may include: Reducing or modifying physical activity. Exercising and stretching. Icing and applying heat to the affected area. Medicines that help to: ?Relieve pain and swelling. ?Relax your muscles. Injections of medicines that help to relieve pain, irritation, and inflammation around the sciatic nerve (steroids). Surgery. Follow these instructions at home: Medicines Take vmwh-uov-hlincez and prescription medicines only as told by your health care provider. Ask your health care provider if the medicine prescribed to you: ?Requires you to avoid driving or using heavy machinery. ?Can cause constipation. You may need to take these actions to prevent or treat constipation: ?Drink enough fluid to keep your urine pale yellow. ?Take pxlh-tgx-nycxqzz or prescription medicines. ?Eat foods that are high in fiber, such as beans, whole grains, and fresh fruits and vegetables. ?Limit foods that are high in fat and processed sugars, such as fried or sweet foods. Managing pain If directed, put ice on the affected area. ?Put ice in a plastic bag. ?Place a towel between your skin and the bag. ?Leave the ice on for 20 minutes, 2 3 times a day. If directed, apply heat to the affected area. Use the heat source that your health care provider recommends, such as a moist heat pack or a heating pad. ?Place a towel between your skin and the heat source. ?Leave the heat on for 20 30 minutes. ?Remove the heat if your skin turns bright red. This is especially important if you are unable to feel pain, heat, or cold. You may have a greater risk of getting burned. Activity Return to your normal activities as told by your health care provider. Ask your health care provider what activities are safe for you. Avoid activities that make your symptoms worse. Take brief periods of rest throughout the day. ?When you rest for longer periods, mix in some mild activity or stretching between periods of rest.This will help to prevent stiffness and pain. ?Avoid sitting for long periods of time without moving. Get up and move around at least one time each hour. Exercise and stretch regularly, as told by your health care provider. Do not lift anything that is heavier than 10 lb (4.5 kg) while you have symptoms of sciatica. When you do not have symptoms, you should still avoid heavy lifting, especially repetitive heavy lifting. When you lift objects, always use proper lifting technique, which includes: ?Bending your knees. ?Keeping the load close to your body. ?Avoiding twisting. General instructions Maintain a healthy weight. Excess weight puts extra stress on your back. Wear supportive, comfortable shoes. Avoid wearing high heels. Avoid sleeping on a mattress that is too soft or too hard. A mattress that is firm enough to support your back when you sleep may help to reduce your pain. Keep all follow-up visits as told by your health care provider. This is important. Contact a health care provider if: You have pain that: ?Wakes you up when you are sleeping. ?Gets worse when you lie down. ?Is worse than you have experienced in the past. ?Lasts longer than 4 weeks. You have an unexplained weight loss. Get help right away if: You are not able to control when you urinate or have bowel movements (incontinence). You have: ?Weakness in your lower back, pelvis, buttocks, or legs that gets worse. ?Redness or swelling of your back. ?A burning sensation when you urinate. Summary Sciatica is pain, numbness, weakness, or tingling along the path of the sciatic nerve. This condition is caused by pressure on the sciatic nerve or pinching of the nerve. Sciatica can cause pain, numbness, or tingling in the lower back, legs, hips, and buttocks. Treatment often includes rest, exercise, medicines, and applying ice or heat. This information is not intended to replace advice given to you by your health care provider. Make sure you discuss any questions you have with your health care provider. Document Revised: 11/05/2019 Document Reviewed: 11/05/2019 [employer] Patient Education 2022 [employer]. Follow Up Care 03/12/2023 13:31:48 With:Jimi Melendez Address: [address] [place], [place] [phone] Business (1) When: Unknown Comments:Sciatica: seen by PA in patient.Please call Pain Management for a flollow up appointment. Thank you. With:Ebonie Cash Address: [address] [place] [phone] Business (1) When:03/23/2023 10:00:00 [facility]05-15-2023 Evaluation + Plan noteExtracted from: Title:Discharge Note Author:June REYNOLDS, Hemalatha Castañeda ate:03/14/23 Stable Discharge To, Anticipated II - Home with home health Transported by, Anticipated - Family Discharge Diet(s): Calorie Controlled- 1800 Calorie Diet (03/14/23 14:23:00) Prescriptions amLODIPine 5 mg Tab, 5 mg= 1 tab(s), Oral, Daily, 3 refills gabapentin 100 mg Cap, 100 mg= 1 cap(s), Oral, TID guaifenesin 400 mg oral tablet, 400 mg= 1 tab(s), Oral, q4hr, PRN, Unable to obtain hydrochlorothiazide-losartan 25 mg-100 mg Tab, 1 tab(s), Oral, Daily, 3 refills levothyroxine 50 mcg (0.05 mg) Tab, 50 mcg= 1 tab(s), Oral, Daily, 3 refills Naprosyn 500 mg Tab, 500 mg= 1 tab(s), Oral, BID omeprazole 40 mg Cap-DR, 40 mg= 1 cap(s), Oral, Daily, 3 refills Percocet 5 mg-325 mg oral tablet, 1 tab(s), Oral, q6hr, PRN simvastatin 40 mg Tab, 40 mg= 1 tab(s), Oral, Once a day (at bedtime), 3 refills Zofran ODT 4 mg Tab-Dis, 4 mg= 1 tab(s), Oral, q6hr, PRN, Not taking Home No active home medications With When Contact Information Ebonie Cash 03/23/2023 10:00 AM EDT [address] [place] [phone]- [phone] Business (1) Additional Instructions: Jimi Melendez [address] [phone] Business (1) Additional Instructions: Sciatica: seen by PA in patient Extracted from: Title:Discharge Note Author:June REYNOLDS, Hemalatha Castañeda ate:03/14/23 Stable Discharge To, Anticipated II - Home with home health Transported by, Anticipated - Family Discharge Diet(s): Calorie Controlled- 1800 Calorie Diet (03/14/23 14:23:00) Prescriptions amLODIPine 5 mg Tab, 5 mg= 1 tab(s), Oral, Daily, 3 refills gabapentin 100 mg Cap, 100 mg= 1 cap(s), Oral, TID guaifenesin 400 mg oral tablet, 400 mg= 1 tab(s), Oral, q4hr, PRN, Unable to obtain hydrochlorothiazide-losartan 25 mg-100 mg Tab, 1 tab(s), Oral, Daily, 3 refills levothyroxine 50 mcg (0.05 mg) Tab, 50 mcg= 1 tab(s), Oral, Daily, 3 refills Naprosyn 500 mg Tab, 500 mg= 1 tab(s), Oral, BID omeprazole 40 mg Cap-DR, 40 mg= 1 cap(s), Oral, Daily, 3 refills Percocet 5 mg-325 mg oral tablet, 1 tab(s), Oral, q6hr, PRN simvastatin 40 mg Tab, 40 mg= 1 tab(s), Oral, Once a day (at bedtime), 3 refills Zofran ODT 4 mg Tab-Dis, 4 mg= 1 tab(s), Oral, q6hr, PRN, Not taking Home No active home medications With When Contact Information Ebonie Juarezdave 03/23/2023 10:00 AM EDT [address] [place] [address]- [phone] Business (1) Additional Instructions: Jimi Melendez [address] [place] [phone] Business (1) Additional Instructions: Sciatica: seen by FRANKLIN in patient Extracted from: Title:Pain Managment H&P- in patient consultation Author:Delphine Harper PA-C Date:03/14/23 Impression and Plan Patient is a 77-year-old female with a past medical history significant for lower back pain with left radiating leg pain. This all started on 03/04/2023 and unfortunate, has not gotten any better. In fact, because of the pain she has not been to the ED twice. After her admission her pain has been controlled but she is concerned about going back home and having a recurrence of the pain. She is going to start on gabapentin and discharged home. We did review the CAT scan and it did show some significant stenosis at L4-5. I feel that since she is an inpatient at this time and this has been a multi ED evaluation for the pain we should obtain a lumbar MRI prior to her discharge home. Based on the formal lumbar MRI findings and if the gabapentin does not give her the relief she is looking for we can discuss future injection options. She is going to obtain a lumbar MRI as well as a lumbar x-ray prior to her discharge. She is going to trial the gabapentin and she can be seen as an outpatient at our clinic to further discuss her options. Call with any concerns. Extracted from: Title:APSO Note Author:SUNIL REYNOLDS, Christina Date: 77-year-old female with history of kaw-bgaxvpd-bdiseqmra diabetes mellitus, hypertension, hyperlipidemia, hypothyroidism, GERD, chronic back pain presented with complaints of lower back pain radiating down her left leg associated with inability to walk and inability to care for herself at home and was admitted with acute sciatica, inability to walk, physical deconditioning. 1. Acute sciatica (M54.30: Sciatica, unspecified side) Acute on chronic back pain secondary to sciatica. Slowly improving. Continue as needed pain medications, steroid, muscle relaxant. Physical therapy evaluation pending. Pain management consult in AM. Ordered: Consult to Pain Management Initial Hospital Care/Day Moderate 55 Minutes [id number] 2. Inability to walk (R26.2: Difficulty in walking, not elsewhere classified) Secondary to above. Physical therapy evaluation pending. Ordered: [facility] Hospital Care/Day Moderate 35 Minutes [id number] 3. Physical deconditioning (R53.81: Other malaise) Physical therapy evaluation. [facility] Moderate 35 Minutes [id number] 4. Chronic GERD (K21.9: Gastro-esophageal reflux disease without esophagitis) PPI. Ordered: [facility]/Day Moderate 35 Minutes [id number] 5. Hyperlipidemia (E78.5: Hyperlipidemia, unspecified) On simvastatin. Ordered: [facility]/Day Moderate 35 Minutes [id number] 6. Hypertension (I10: Essential (primary) hypertension) On amlodipine, losartan and hydrochlorothiazide at home. Ordered: [facility]/Day Moderate 35 Minutes [id number] 7. Hypothyroidism (E03.9: Hypothyroidism, unspecified) On Synthroid. 8. Insomnia (G47.00: Insomnia, unspecified) Supportive care. 9. Diabetes mellitus with hyperglycemia (E11.65: Type 2 diabetes mellitus with hyperglycemia) Diet controlled. 10. On deep vein thrombosis (DVT) prophylaxis (Z79.899: Other group home (current) drug therapy) Lovenox. Disposition: Pending pain management evaluation and physical therapy evaluation. I discussed the diagnosis and plan of care with the patient at the bedside. Moderate level of MDM based on addressing above issues. This documentation was transcribed using voice recognition software. Several attempts were made to ensure accuracy. However inadvertent computerized bottle dealer errors may be present. Christina Barber. Hospitalist. Orders: acetaminophen, 650 mg = 2 tab(s), Tab, Oral, q6hr PRN Pain, Routine, Start date 03/12/23 18:28:00 EDT, 03/12/23 18:28:00 EDT Al hydroxide/Mg hydroxide/simethicone, 30 mL, Susp-Oral, Oral, q6hr PRN Indigestion, STAT, Start date 03/12/23 18:28:00 EDT diphenhydrAMINE, 25 mg = 1 cap(s), Cap, Oral, q6hr PRN Itching, Routine, Start date 03/12/23 18:28:00 EDT, 03/12/23 18:28:00 EDT enoxaparin, 40 mg = 0.4 mL, Injection, SubCutaneous, Daily, Routine, Start date 03/13/23 9:00:00 EDT, 03/12/23 18:28:00 EDT hydrALAZINE, 10 mg = 0.5 mL, Injection, IV Push, q6hr PRN Other (see comment), Routine, Start date 03/12/23 18:28:00 EDT, 03/12/23 18:28:00 EDT nalbuphine, 5 mg = 0.5 mL, Injection, IV Push, q4hr PRN Pain, Routine, Start date 03/12/23 18:28:00 EDT, 03/12/23 18:28:00 EDT ondansetron, 4 mg = 2 mL, Injection, IV Push, q6hr PRN Nausea, Routine, Start date 03/12/23 18:28:00 EDT, 03/12/23 18:28:00 EDT predniSONE, 40 mg = 2 tab(s), Tab, Oral, Daily, Routine, Start date 03/13/23 9:00:00 EDT, 03/12/23 18:28:00 EDT tizanidine, 4 mg = 1 tab(s), Tab, Oral, TID PRN Spasm, Routine, Start date 03/12/23 18:30:00 EDT Ambulate with Assistance Diabetic/Calorie Control Diet Occupational Therapy Evaluate Patient, Develop a Plan of Care and Implement Plan Oxygen Protocol Physical Therapy Evaluate Patient, Develop a Plan of Care and Implement Plan Place in Status Pulse Oximetry Resuscitation Status - Full Vital Signs Weight Extracted from: Title:Admission H & P Author:Christina BARBER MD Date:03/12/23 77-year-old female with history of gbw-cunqzvj-zectwrhxz diabetes mellitus, hypertension, hyperlipidemia, hypothyroidism, GERD, chronic back pain presented with complaints of lower back pain radiating down her left leg associated with inability to walk and inability to care for herself at home. 1. Acute sciatica (M54.30: Sciatica, unspecified side) Acute on chronic back pain secondary to sciatica. Admit to regular medical floor. Started patient on IV as needed pain medications, muscle relaxants and steroid. Pain management evaluation next week. Physical therapy evaluation. Reviewed CT scan of the abdomen shows mild perinephric stranding. No clinical indication for pyelonephritis. Urinalysis essentially normal. Ordered: [facility]/Day Moderate 35 Minutes [id number] 2. Inability to walk (R26.2: Difficulty in walking, not elsewhere classified) Secondary to above. Physical therapy evaluation. Ordered: [facility] Hospital Care/Day Moderate 35 Minutes [id number] 3. Physical deconditioning (R53.81: Other malaise) Physical therapy evaluation. Ordered: [facility] Hospital Care/Day Moderate 35 Minutes [id number] 4. Chronic GERD (K21.9: Gastro-esophageal reflux disease without esophagitis) PPI. Ordered: [facility] Hospital Care/Day Moderate 35 Minutes [id number] 5. Hyperlipidemia (E78.5: Hyperlipidemia, unspecified) Simvastatin. Ordered: [facility] Hospital Care/Day Moderate 35 Minutes [id number] 6. Hypertension (I10: Essential (primary) hypertension) Continue on amlodipine, losartan and hydrochlorothiazide. Ordered: [facility] Hospital Care/Day Moderate 35 Minutes [id number] 7. Hypothyroidism (E03.9: Hypothyroidism, unspecified) On Synthroid. 8. Insomnia (G47.00: Insomnia, unspecified) Supportive care. 9. Diabetes mellitus with hyperglycemia (E11.65: Type 2 diabetes mellitus with hyperglycemia) Diet controlled. 10. On deep vein thrombosis (DVT) prophylaxis (Z79.899: Other oysterman (current) drug therapy) Lovenox. Disposition: The patient will be admitted under inpatient status and will require greater than 2 midnight hospital stay for the treatment of above acute on chronic back pain secondary to sciatica, inability to walk and physical deconditioning. I discussed the diagnosis and plan of care with the patient at the bedside. Moderate level of MDM based on addressing above issues. This documentation was transcribed using voice recognition software. Several attempts were made to ensure accuracy. However inadvertent computerized bottle dealer errors may be present. Christina Barber. Hospitalist. Orders: acetaminophen, 650 mg = 2 tab(s), Tab, Oral, q6hr PRN Pain, Routine, Start date 03/12/23 18:28:00 EDT, 03/12/23 18:28:00 EDT Al hydroxide/Mg hydroxide/simethicone, 30 mL, Susp-Oral, Oral, q6hr PRN Indigestion, STAT, Start date 03/12/23 18:28:00 EDT diphenhydrAMINE, 25 mg = 1 cap(s), Cap, Oral, q6hr PRN Itching, Routine, Start date 03/12/23 18:28:00 EDT, 03/12/23 18:28:00 EDT enoxaparin, 40 mg = 0.4 mL, Injection, SubCutaneous, Daily, Routine, Start date 03/13/23 9:00:00 EDT, 03/12/23 18:28:00 EDT hydrALAZINE, 10 mg = 0.5 mL, Injection, IV Push, q6hr PRN Other (see comment), Routine, Start date 03/12/23 18:28:00 EDT, 03/12/23 18:28:00 EDT nalbuphine, 5 mg = 0.5 mL, Injection, IV Push, q4hr PRN Pain, Routine, Start date 03/12/23 18:28:00 EDT, 03/12/23 18:28:00 EDT ondansetron, 4 mg = 2 mL, Injection, IV Push, q6hr PRN Nausea, Routine, Start date 03/12/23 18:28:00 EDT, 03/12/23 18:28:00 EDT predniSONE, 40 mg = 2 tab(s), Tab, Oral, Daily, Routine, Start date 03/13/23 9:00:00 EDT, 03/12/23 18:28:00 EDT tizanidine, 42 mg, Tab, Oral, TID PRN Spasm, Routine, Start date 03/12/23 18:30:00 EDT, 03/12/23 18:30:00 EDT Ambulate with Assistance Diabetic/Calorie Control Diet Occupational Therapy Evaluate Patient, Develop a Plan of Care and Implement Plan Oxygen Protocol Physical Therapy Evaluate Patient, Develop a Plan of Care and Implement Plan Place in Status Pulse Oximetry Resuscitation Status - Full Vital Signs Weight Extracted from: Title:ED Note Author:Tay Pham PA-C te:03/12/23 Ordered: morphine, 4 mg = 2 mL, Injection, IV Push, Once, Stop date 03/12/23 14:05:00 EDT, STAT, Start date 03/12/23 14:05:00 EDT, 03/12/23 14:05:00 EDT ondansetron, 4 mg = 2 mL, Injection, IV Push, Once, Stop date 03/12/23 14:05:00 EDT, STAT, Start date 03/12/23 14:05:00 EDT, 03/12/23 14:05:00 EDT Sodium Chloride 0.9% intravenous solution, 1,000 mL, Soln-IV, IV, Once, Stop date 03/12/23 14:05:00 EDT, STAT, Start date 03/12/23 14:05:00 EDT, Infuse over 61, minute(s) Automated Diff Basic Metabolic Panel CBC w/ Auto Diff CT Abdomen/Pelvis w/ Contrast eGFR UA With Cult Reflex Future Appointments Appointment Date:03/23/2023 10:00:00 AM Scheduled Provider:Ebonie Cash MD Location:[facility] Appointment Type: Hospital Follow Up w/TCM Future Scheduled Tests Laboratory* Respiratory Panel by PCR 07/19/22 * HgbA1c 01/14/23 * SARS-CoV-2, [facility]LO 07/19/22 * Comprehensive Metabolic Panel 01/14/23 * Lipid Panel 01/14/23 * Thyroid Stimulating Hormone 01/14/23 Radiology* XR Spine Lumbosacral Minimum 4 Views 01/14/23 [facility]05-07-2023 Hospital Discharge instructions Patient Education 03/06/2023 16:08:54 Lumbosacral Radiculopathy Lumbosacral Radiculopathy Lumbosacral radiculopathy is a condition that involves the spinal nerves and nerve roots in the lowback and bottom of the spine. The condition develops when these nerves and nerve roots move out of place or become inflamed and cause symptoms. What are the causes? This condition may be caused by: Pressure from a disk that bulges out of place (herniated disk). A disk is a plate of soft cartilagethat separates bones in the spine. Disk changes that occur with age (disk degeneration). A narrowing of the bones of the lower back (spinal stenosis). A tumor. An infection. An injury that places sudden pressure on the disks that cushion the bones of your lower spine. What increases the risk? You are more likely to develop this condition if: You are a male who is 30 50 years old. You are a female who is 50 60 years old. You use improper technique when lifting things. You are overweight or live a sedentary lifestyle. You smoke. Your work requires frequent lifting. You do repetitive activities that strain the spine. What are the signs or symptoms? Symptoms of this condition include: Pain that goes down from your back into your legs (sciatica), usually on one side of the body. Thisis the most common symptom. The pain may be worse when you sit, cough, or sneeze. Tingling and numbness in your legs. Muscle weakness in your legs. Loss of bladder control or bowel control. How is this diagnosed? This condition may be diagnosed based on: Your symptoms and medical history. A physical exam. If the pain lasts, you may have tests, such as: MRI. X-ray. CT scan. A type of CT scan used to examine the spinal canal after injecting a dye into your spine (myelogram). A test to measure how electrical impulses move through a nerve (nerve conduction study). A test to measure the electrical activity in muscles (electromyogram). How is this treated? In many cases, treatment is not needed for this condition. With rest, the condition usually gets better over time. If treatment is needed, it may include: Working with a physical therapist to improve strength and flexibility. Taking pain medicine. Applying heat or ice or both to the affected areas. Having chiropractic spinal manipulation. Using transcutaneous electrical nerve stimulation (TENS) therapy. Getting a steroid injection in the spine. Having surgery. This may be needed if other treatments do not help. Different types of surgery may be done depending on the cause of this condition. Follow these instructions at home: Activity Avoid bending and any other activities that make the problem worse. Maintain a proper position when standing or sitting. ?When standing, keep your upper back and neck straight with your shoulders pulled back. Avoid slouching. ?When sitting, keep your back straight and relax your shoulders. Do not round your shoulders or pull them backward. Do not sit or qa intern one place for long periods of time. Take brief periods of rest throughout the day. This will reduce your pain. It is usually better to rest by lying down or standing, not sitting. Mix in mild activity or stretching between long periods of rest. This will help to prevent stiffness and pain. Get regular exercise. Ask your health care provider what activities are safe for you. If you were shown how to do any exercises or stretches, do them as told by your health care provider. You may have to avoid lifting. Ask your health care provider how much you can safely lift. Always use proper lifting technique, which includes: ?Bending your knees. ?Keeping the load close to your body. ?Avoiding twisting. Managing pain If directed, put ice on the affected area. To do this: ?Put ice in a plastic bag. ?Place a towel between your skin and the bag. ?Leave the ice on for 20 minutes, 2 3 times a day. ?Remove the ice if your skin turns bright red. This is very important. If you cannot feel pain, heat, or cold, you have a greater risk of damage to the area. If directed, apply heat to the affected area as often as told by your health care provider. Use theheat source that your health care provider recommends, such as a moist heat pack or a heating pad. ?Place a towel between your skin and the heat source. ?Leave the heat on for 20 30 minutes. ?Remove the heat if your skin turns bright red. This is especially important if you are unable to feel pain, heat, or cold. You have a greater risk of getting burned. Take lugz-zyh-awzyyuu and prescription medicines only as told by your health care provider. General instructions Sleep on a firm mattress in a comfortable position. Try lying on your side with your knees slightlybent. If you lie on your back, put a pillow under your knees. Ask your health care provider if the medicine prescribed to you requires you to avoid driving or using machinery. If your health care provider prescribed a diet or exercise program, follow it as told. Keep all follow-up visits. This is important. Contact a health care provider if: Your pain does not get better over time, even when taking pain medicines. Get help right away if: You develop severe pain. Your pain suddenly gets worse. You develop increasing weakness in your legs. You lose the ability to control your bladder or bowel. You have difficulty walking or balancing. You have a fever. Summary Lumbosacral radiculopathy is a condition that occurs when the spinal nerves and nerve roots in the lower part of the spine move out of place or become inflamed and cause symptoms. Symptoms include pain, numbness, and tingling that go down from your back into your legs (sciatica), muscle weakness, and loss of bladder control or bowel control. If directed, apply ice or heat or both to the affected area as told by your health care provider. Follow instructions about activity, rest, and proper lifting technique. This information is not intended to replace advice given to you by your health care provider. Make sure you discuss any questions you have with your health care provider. Document Revised: 04/22/2022 Document Reviewed: 04/22/2022 [employer] Patient Education 2022 [employer]. Follow Up Care 03/06/2023 14:04:03 With:Ebonie Cash Address: [address] [place] [address], [facility] [place] [address] [phone] Business (1) When:03/09/2023 15:57:35 Comments:Return to the emergency room if your pain gets worse, bowel or bladder incontinence, numbness/tingling in the saddle/groin area, weakness in your leg or any new symptoms. [facility]05-07-2023 Evaluation + Plan noteExtracted from: Title:ED Note Author:Cecy Patel M.D. te:03/06/23 1. Lumbosacral radiculopathy (M54.17: Radiculopathy, lumbosacral region) Ordered: acetaminophen-oxycodone, 1 tab(s), Oral, q6hr as needed for pain, 12 tab(s), Refill(s) 0, [facility], 164, cm, 03/06/23 14:09:00 EDT, Height/Length Dosing, 76.5, kg, 03/06/23 14:09:00 EDT, Weight Dosing Orders: acetaminophen-oxycodone, 1 tab(s), Tab, Oral, Once, Stop date 03/06/23 14:18:00 EDT, STAT, Start date 03/06/23 14:18:00 EDT ketorolac, 60 mg = 2 mL, Injection, IntraMuscular, Once, Stop date 03/06/23 14:17:00 EDT, STAT, Start date 03/06/23 14:17:00 EDT, 03/06/23 14:17:00 EDT ketorolac, Injection, Misc, Once, Stop date 03/06/23 14:24:50 EDT, Physician Stop, 03/06/23 14:24:50 EDT naproxen, 500 mg = 1 tab(s), Oral, BID, Do not take it with any other nonsteroidal anti-inflammatory medications eyoa-zpf-sjxdocm, # 15 tab(s), Refills(s) 0, Pharmacy: [facility], 164, cm, 03/06/23 14:09:00 EDT, Height/Length Dosing, 76.5, kg, 0... Future Scheduled Tests Laboratory* Respiratory Panel by PCR 07/19/22 * HgbA1c 01/14/23 * SARS-CoV-2, [facility] 07/19/22 * Comprehensive Metabolic Panel 01/14/23 * Lipid Panel 01/14/23 * Thyroid Stimulating Hormone 01/14/23 Radiology* XR Spine Lumbosacral Minimum 4 Views 01/14/23 [facility]04-07-2023 Evaluation + Plan noteExtracted from: Title:ED Note Author:Esteban Healy DO Date: Abdominal pain, acute, right upper quadrant (R10.11: Right upper quadrant pain) Orders: morphine, 4 mg = 2 mL, Injection, IV Push, Once, Stop date 02/04/23 6:04:00 EDT, STAT, Start date 02/04/23 6:04:00 EDT, 02/04/23 6:04:00 EDT ondansetron, 4 mg = 2 mL, Injection, IV Push, Once, Stop date 02/04/23 6:05:00 EDT, STAT, Start date 02/04/23 6:05:00 EDT, 02/04/23 6:05:00 EDT Sodium Chloride 0.9% intravenous solution, 500 mL, Soln-IV, IV, Once, Stop date 02/04/23 5:49:00 EDT, STAT, Start date 02/04/23 5:49:00 EDT, 500 mL/hr, Infuse over 1, hour(s) Automated Diff Basic Metabolic Panel CBC w/ Auto Diff CT Abdomen/Pelvis w/ Contrast ECG 12 Lead Adult ED Cardiac Monitoring eGFR Hepatic Function Panel Lipase Level Saline Lock Insert Troponin 0 Hr. UA With Cult Reflex Urine Culture Addendum by Jorge Geiger, As trit H on February 04, 2023 10:32:17 EDT The care of the patient was transitioned to mt upon shift change to follow-up with imaging reevaluation and final disposition. The patient has presented with right upper quadrant abdominal pain. She has some tenderness on palpation on exam by me on epigastric and right upper quadrant. There is no guarding no rebound tenderness. The blood work reviewed unremarkable. The CT of the abdomen and pelvis is negative for acute process. The ultrasound of the gallbladder is negative. The patient was seen by surgery who recommends follow-up as an outpatient. The surgery will ordered HIDA scan and hepatitis panel. Her pain improved. Will discharge patient home follow-up with GI and surgery as an outpatient. She is instructed to return to the emergency room if her symptoms get worse or any new symptoms. Addendum by Jorge Geiger, As trit H on February 04, 2023 10:34:17 EDT Her potassium is low replaced. Additional diagnosis: Hypokalemia Future Appointments Appointment Date:02/28/2023 08:00:00 AM Scheduled Provider: Location:[facility] Appointment Type:NM Hepatobiliary Duct System Imaging ([facility] Diagnostic Tests Pending * Urine Culture 02/04/23 * Antimitochondrial Antibody, Quantitative 02/04/23 * Acute Hepatitis A B C Panel 02/04/23 * Hepatitis B Surface Antibody 02/04/23 Future Scheduled Tests Laboratory* Respiratory Panel by PCR 07/19/22 * HgbA1c 01/14/23 * SARS-CoV-2, [facility] 07/19/22 * Comprehensive Metabolic Panel 01/14/23 * Lipid Panel 01/14/23 * Thyroid Stimulating Hormone 01/14/23 Radiology* NM Hepatobiliary Duct System Imaging w/EF 02/28/23 * XR Spine Lumbosacral Minimum 4 Views 01/14/23 * MA Mamm Diag w/CAD if perf and 3D Kenny 01/17/22 [facility]04-07-2023 Hospital Discharge instructions Patient Education 02/04/2023 10:58:38 Hypokalemia Hypokalemia Hypokalemia means that the amount of potassium in the blood is lower than normal. Potassium is a chemical (electrolyte) that helps regulate the amount of fluid in the body. It also stimulates muscle tightening (contraction) and helps nerves work properly. Normally, most of the body's potassium is inside cells, and only a very small amount is in the blood. Because the amount in the blood is so small, minor changes to potassium levels in the blood can be life-threatening. What are the causes? This condition may be caused by: Antibiotic medicine. Diarrhea or vomiting. Taking too much of a medicine that helps you have a bowel movement (laxative)can cause diarrhea and lead to hypokalemia. Chronic kidney disease (CKD). Medicines that help the body get rid of excess fluid (diuretics). Eating disorders, such as bulimia. Low magnesium levels in the body. Sweating a lot. What are the signs or symptoms? Symptoms of this condition include: Weakness. Constipation. Fatigue. Muscle cramps. Mental confusion. Skipped heartbeats or irregular heartbeat (palpitations). Tingling or numbness. How is this diagnosed? This condition is diagnosed with a blood test. How is this treated? This condition may be treated by: Taking potassium supplements by mouth. Adjusting the medicines that you take. Eating more foods that contain a lot of potassium. If your potassium level is very low, you may need to get potassium through an IV and be monitored in the hospital. Follow these instructions at home: Take bmge-spn-qtpwmjh and prescription medicines only as told by your health care provider. This includes vitamins and supplements. Eat a healthy diet. A healthy diet includes fresh fruits and vegetables, whole grains, healthy fats, and lean proteins. If instructed, eat more foods that contain a lot of potassium. This includes: ?Nuts, such as peanuts and pistachios. ?Seeds, such as sunflower seeds and pumpkin seeds. ?Peas, lentils, and mcgrath beans. ?Whole grain and bran cereals and breads. ?Fresh fruits and vegetables, such as apricots, avocado, bananas, cantaloupe, kiwi, oranges, tomatoes, asparagus, and potatoes. ?[place] juice. ?Tomato juice. ?Red meats. ?Yogurt. Keep all follow-up visits as told by your health care provider. This is important. Contact a health care provider if you: Have weakness that gets worse. Feel your heart pounding or racing. Vomit. Have diarrhea. Have diabetes (diabetes mellitus) and you have trouble keeping your blood sugar (glucose) in your target range. Get help right away if you: Have chest pain. Have shortness of breath. Have vomiting or diarrhea that lasts for more than 2 days. Faint. Summary Hypokalemia means that the amount of potassium in the blood is lower than normal. This condition is diagnosed with a blood test. Hypokalemia may be treated by taking potassium supplements, adjusting the medicines that you take, or eating more foods that are high in potassium. If your potassium level is very low, you may need to get potassium through an IV and be monitored in the hospital. This information is not intended to replace advice given to you by your health care provider. Make sure you discuss any questions you have with your health care provider. Document Released: 10/17/2006 Document Revised: 05/30/2019 Document Reviewed: 05/30/2019 [employer] Patient Education 2020 [employer]. 02/04/2023 10:58:38 Abdominal Pain, Adult Abdominal Pain, Adult Pain in the abdomen (abdominal pain) can be caused by many things. Often, abdominal pain is not serious and it gets better with no treatment or by being treated at home. However, sometimes abdominal pain is serious. Your health care provider will ask questions about your medical history and do a physical exam to try to determine the cause of your abdominal pain. Follow these instructions at home: Medicines Take vwzv-dyx-tpxqjrp and prescription medicines only as told by your health care provider. Do not take a laxative unless told by your health care provider. General instructions Watch your condition for any changes. Drink enough fluid to keep your urine pale yellow. Keep all follow-up visits as told by your health care provider. This is important. Contact a health care provider if: Your abdominal pain changes or gets worse. You are not hungry or you lose weight without trying. You are constipated or have diarrhea for more than 2 3 days. You have pain when you urinate or have a bowel movement. Your abdominal pain wakes you up at night. Your pain gets worse with meals, after eating, or with certain foods. You are vomiting and cannot keep anything down. You have a fever. You have blood in your urine. Get help right away if: Your pain does not go away as soon as your health care provider told you to expect. You cannot stop vomiting. Your pain is only in areas of the abdomen, such as the right side or the left lower portion of the abdomen. Pain on the right side could be caused by appendicitis. You have bloody or black stools, or stools that look like tar. You have severe pain, cramping, or bloating in your abdomen. You have signs of dehydration, such as: ?Dark urine, very little urine, or no urine. ?Cracked lips. ?Dry mouth. ?Sunken eyes. ?Sleepiness. ?Weakness. You have trouble breathing or chest pain. Summary Often, abdominal pain is not serious and it gets better with no treatment or by being treated at home. However, sometimes abdominal pain is serious. Watch your condition for any changes. Take qcrf-wkz-vbbkrtj and prescription medicines only as told by your health care provider. Contact a health care provider if your abdominal pain changes or gets worse. Get help right away if you have severe pain, cramping, or bloating in your abdomen. This information is not intended to replace advice given to you by your health care provider. Make sure you discuss any questions you have with your health care provider. Document Released: 07/27/2006 Document Revised: 02/25/2020 Document Reviewed: 02/25/2020 [employer] Patient Education 2020 [employer]. Follow Up Care 02/04/2023 05:39:49 With:Latoya Jimenez Address: [address], [address] [address] [facility] (1) When:02/07/2023 10:19:08 Comments:Make sure to follow-up with surgery as an outpatient as instructed. Return to the emergency room ifyour pain gets worse, fever, vomiting or any new symptoms. With:Christie DURAN Address: [address] [place] [address] Business (1) When:02/07/2023 10:18:28 With:Ebonie Cash Address:Unknown When:Within 3 Day(s) [facility]02-14-2023 Hospital Discharge instructions Follow Up Care 12/14/2022 12:14:20 With:Ebonie Cash MD, HANS, MED Address: [address] [place] [phone] Business (1) When:10/10/2021 [facility] 09-19-2022 Evaluation + Plan note Future Scheduled Tests Laboratory* Respiratory Panel by PCR 07/19/22 * SARS-CoV-2, CHELO 07/19/22 Radiology* MA Mamm Diag w/CAD if perf and 3D Kenny 01/17/22 [facility] 09-19-2022 Evaluation + Plan note Future Scheduled Tests Laboratory* Respiratory Panel by PCR 07/19/22 * HgbA1c 01/14/23 * SARS-CoV-2, CHELO 07/19/22 * Comprehensive Metabolic Panel 01/14/23 * Lipid Panel 01/14/23 * Thyroid Stimulating Hormone 01/14/23 Radiology* XR Spine Lumbosacral Minimum 4 Views 01/14/23 * MA Mamm Diag w/CAD if perf and 3D Kenny 01/17/22 [facility]09-19-2022 Hospital Discharge instructions Follow Up Care 07/19/2022 10:29:43 With:Shailesh REYNOLDS, Ebonie, HANS, MED Address: When:Within 1 Month(s) [facility] Evaluation + Plan note Future Appointments Appointment Date:02/01/2023 08:30:00 AM Scheduled Provider: Location:[facility] Appointment Type:MA Screen (FT) Appointment Date:02/01/2023 09:00:00 AM Scheduled Provider: Location:[facility].BD Appointment Type:BD Bone Density (FT) Future Scheduled Tests Laboratory* Respiratory Panel by PCR 07/19/22 * HgbA1c 01/14/23 * SARS-CoV-2, CHELO 07/19/22 * Comprehensive Metabolic Panel 01/14/23 * Lipid Panel 01/14/23 * Thyroid Stimulating Hormone 01/14/23 Radiology* BD Bone Density DEXA 02/01/23 * XR Spine Lumbosacral Minimum 4 Views 01/14/23 * MA Mamm Diag w/CAD if perf and 3D Kenny 01/17/22 * MA Mamm Screen w/CAD if perf and 3D Kenny 02/01/23 [facility] Evaluation noteNo assessment information available [facility] Work Phone: Hospital course Narrative No data available for this section [facility] Hospital Discharge instructions No data available for this section [facility] Additional Instructions T[place] diet not Nothing spicy fast food fried no alcohol Continue regular medication May take the Zofran every 8 hours for nausea vomiting Take 1 oxycodone every 6 hours for severe pain Follow-up with gastroenterology I also gave you referral for general surgery return to the ER for worsening pain high fever vomiting or any other concerns [facility] Work Phone: Progress note No data available for this section [facility] Summary Purpose Family History No Family History Records FoundNo Family History Records Found No data available for this section No data available for this section No data available for this section No Family History Records FoundNo Family History Records FoundNo Family History Records Found Advance Directives No Advanced Directives Records Found Advance Directive Response Recorded Date/ Time Advance Directives No March 08, 2024 5:10pm Chief Complaint and Reason for Visit Chief Complaint Upper abd pain Additional Source Comments INFORMATION SOURCE (unrecogn ized section and content) DATE CREATED AUTHOR 04/26/2018 [facility] DATE CREATED AUTHOR AUTHOR'S ORGANIZ ATION 04/26/2018 [facility] DATE CREATED AUTHOR AUTHOR'S ORGANIZ ATION 03/12/2024 [facility] DATE CREATED AUTHOR AUTHOR'S ORGANIZ ATION 04/19/2024 [facility] DATE CREATED AUTHOR AUTHOR'S OMAR ATION 07/22/2024 [facility] Care Team (unrecognized sect ion and content) Team Status: Active Member Role Status Dates NON STAFF Primary Care Provider Active Team Status: Inactive Member Role Status Dates NON STAFF Primary Care Provider Active Start: March 08, 2024 End: March 08, 2024 [facility] Provider Active Start: March 08, 2024 End: March 08, 2024 Goals (unrecognized section and content) Goals may be documented in a n alternate section FOR RECORDS PERTAINING TO PATIENTS WHO ARE OR HAVE BEEN ENROLLED IN A CHEMICAL DEPENDENCY/SUBSTANCEABUSE PROGRAM, SOME INFORMATION MAY BE OMITTED. This clinical summary was aggregated from multiple sources. Caution should be exercised in using it in the provision of clinical care. This summary normalizes information from multiple sources, and as a consequence, information in this document may materially change the coding, format and clinical context of patient data. In addition, data may be omitted in some cases. CLINICAL DECISIONS SHOULD BE BASED ON THE PRIMARY CLINICAL RECORDS. [employer] provides no warranty or guarantee of the accuracy or completeness of information in this document.
[2024-08-02] MEDS: DIAZEPAM 5 MG TABLET PO (08:04)
[2024-08-02] MEDS: PHENYLEPHRINE HCL 2.5% OP SOL 40 DROP/2 ML BOTTLE OP ×4 (08:04→08:32)
[2024-08-02] MEDS: CYCLOPENTOLATE HCL 1% OP SOL 40 DROP/2 ML BOTTLE OP ×4 (08:04→08:32)
[2024-08-02] MEDS: TROPICAMIDE 1% OP SOL 300 DROP/15 ML BOTTLE OP ×4 (08:04→08:32)
[2024-08-02] MEDS: BESIFLOXACIN HCL 100 DROP DROPS.SUSP OP ×4 (08:05→08:32)
[2024-08-02 08:10] VITALS: BP 146/87; PULSE 89; TEMP 36.4; O2SAT 95
[2024-08-02] MEDS: PROPARACAINE HCL 0.5% 300 DROP/15 ML BOTTLE OP (08:51)
[2024-08-02] MEDS: BETADINE POVIDONE-IODINE 5% OP SOL 30 ML BOTTLE OP (08:51)
[2024-08-02] MEDS: LIDOCAINE 2% JELLY 10 ML TOPICAL (08:52)
[2024-08-02 09:01] VITALS: BP 119/66; BP 129/72; PULSE 76; PULSE 77; O2SAT 98; O2SAT 99
[2024-08-02] MEDS: HYALURONATE SODIUM 16 MG/ML SYRINGE OP (09:01)
[2024-08-02] MEDS: LIDOCAINE HCL 1% PF 20 MG/2 ML VIAL INJ (09:01)
[2024-08-02] MEDS: TETRACAINE HCL 0.5% OP SOL 80 DROP/4 ML BOTTLE OP (09:02)
[2024-08-02] MEDS: PHENYLEPHRINE/KETOROLAC 1-0.3% ML VIAL 4 ML IRR (09:02)
[2024-08-02] MEDS: CEFUROXIME SODIUM 750 MG, 0.9 % SODIUM CHLORIDE 16.3 ML OP (09:02)
[2024-08-02] MEDS: APRACLONIDINE HCL 0.5% SOL 100 DROP/5 ML BOTTLE OP (09:10)
[2024-08-02] MEDS: PREDNISOLONE ACETATE OP 1% SUSP 100 DROPS/5 ML 1 DROP OP (09:10)
== END 2024-08-02 09:25 | disposition home or self-care (01) ==
LOC: SURGOUT 07:52
PROVIDERS: Visit Provider Ophthalmology
PROC: (CPT 66984; principal; 2024-08-02 09:00)
DX: H25.11 Age-related nuclear cataract, right eye (principal); E03.9 Hypothyroidism, unspecified; I10 Essential (primary) hypertension; K44.9 Diaphragmatic hernia without obstruction or gangrene; Z85.3 Personal history of malignant neoplasm of breast
CPT/HCPCS: 66984; J0697; V2630